=== PATIENT | female | born 1945 | race Caucasian/White ===

== ENCOUNTER 2020-04-14 08:41 | Outpatient (REF) | payer MEDICARE, BC, SELFPAY ==
--- NOTE | 2020-04-14 | XR_ITS ---
EXAMINATION: LEFT HIP AND LUMBAR SPINE. CLINICAL INFORMATION: Low back pain and left sciatica COMPARISON: None TECHNIQUE: Lumbar spine 3 views. Left hip 2 views. FINDINGS: Lumbar spine: There is normal lumbar lordosis. The vertebral heights, alignment and disc heights are normal. There is mild bilateral L4-L5 facet joint arthropathy. No lytic process seen. Left hip: There is loss of left hip joint space with mild periarticular spurring. No visible acute fracture, dislocation or lytic process seen. No bony erosive changes. The soft tissues are normal. XR/XR hip LT min 2V IMPRESSION: Bilateral L4-L5 facet joint arthropathy. No visible acute fracture, dislocation or lytic process. Mild degenerative changes left hip joint. No visible acute fracture or dislocation seen.
--- NOTE | 2020-04-14 | XR_ITS ---
EXAMINATION: LEFT HIP AND LUMBAR SPINE. CLINICAL INFORMATION: Low back pain and left sciatica COMPARISON: None TECHNIQUE: Lumbar spine 3 views. Left hip 2 views. FINDINGS: Lumbar spine: There is normal lumbar lordosis. The vertebral heights, alignment and disc heights are normal. There is mild bilateral L4-L5 facet joint arthropathy. No lytic process seen. Left hip: There is loss of left hip joint space with mild periarticular spurring. No visible acute fracture, dislocation or lytic process seen. No bony erosive changes. The soft tissues are normal. XR/XR lumbar spine 2-3V IMPRESSION: Bilateral L4-L5 facet joint arthropathy. No visible acute fracture, dislocation or lytic process. Mild degenerative changes left hip joint. No visible acute fracture or dislocation seen.
== END 2020-04-14 08:42 | disposition home or self-care (01) ==
LOC: HO.HMGCX 08:41
PROVIDERS: PCP Nurse Practitioner Family; Visit Provider Chiropractor
DX: M54.32 Sciatica, left side (principal); M54.5 Low back pain
CPT/HCPCS: 72100; 73502

== ENCOUNTER 2020-04-21 07:47 | Outpatient (RCR) | payer MEDICARE, BC, SELFPAY ==
--- NOTE | 2020-04-21 15:05 | MHC.PT.EP ---
[facility] [place] Office [place] Office [place] Office [address] [place] [address] [phone] F: [phone] F: [phone] F: [phone] F: [phone] Physical Therapy Plan of Care Date of Evaluation: 04/21/20 Date of Surgery: n/a Diagnosis: Left sided low back pain Assessment: Patient is a 74 year old R handed female who presents with s/s consistent with left sided low back pain. She is retired but does enjoy staying active and exercising. Patient past medical history includes chronic low back pain and HTN. Current impairments include pain, ROM, strength, safety, independence, body mechanics, activity tolerance and functional mobility. Functional limitations include decreased ability to walk, stand, sit, transfer, negotiate stairs, and perform weight bearing activities.. Patient is motivated with good rehab potential. Skilled PT will address impairments and functional limitations in order to achieve goals. Frequency and Duration: The patient will be seen 2x/week for 6 weeks Short Term Goals: I with HEP - 2 weeks (-) piriformis tenderness - 3 weeks hip abd strength 3+/5 - 3 weeks Able to sit and walk > 15 minutes - 3 weeks Skilled Nursing Goals: Hip abd strength 4-/5 - 5 weeks Able to sit and walk > 20 minutes - 6 weeks Oswestry 20% or < - 5 weeks Treatment Plan: Modalities to reduce pain, spasms and effusion. Manual therapy to restore motion and function. Therapeutic exercise to improve strength and flexibility. Neuromuscular re-education for posture and balance. Therapeutic activities to return to functional activities of daily living. Please sign and return to therapist. Thank you for your referral.
--- NOTE | 2020-05-21 11:39 | MHC.PT.DC ---
[facility] [place] Office [place] Office [place] Office [address] [place] [address] [phone] F: [phone] F: [phone] F: [phone] F: [phone] Physical Therapy Discharge Report Diagnosis: Left sided low back pain Date of Surgery: n/a Date of Evaluation: 04/21/20 Date of Discharge: Treatments to Date: 1 Cancellations to Date: No Shows to Date: Discharge Status: Patient Elected to Stop Discharge Summary: Pt elected to not return to physical therapy after evaluation. Electronically signed by: Michael Davis PT Please sign and return to therapist. Thank you for your referral.
== END 2020-05-21 11:40 | disposition home or self-care (01) ==
LOC: HO.PTCHIC 07:47
PROVIDERS: PCP Nurse Practitioner Family; Visit Provider Nurse Practitioner Family
DX: Z13.89 Encounter for screening for other disorder (principal)
CPT/HCPCS: 97110; 97161

== ENCOUNTER 2020-05-25 06:10 | Outpatient (REF) | payer MEDICARE, BC, SELFPAY ==
[2020-05-25 11:46] LABS: Alanine Aminotransferase 9 U/L (0-31); Albumin Level 4.2 g/dL (3.5-5.0); Alkaline Phosphatase 60 U/L (39-117); Anion Gap 14 (12-20); Aspartate Amino Transferase 15 U/L (5-31); Bilirubin Total 0.7 mg/dL (0.0-1.0); Blood Urea Nitrogen 33 mg/dL (9-16); Carbon Dioxide 26 mmol/L (22-29); Chloride 104 mmol/L (96-108); Cholesterol 212 mg/dL; Estimated Glomerular Filt Rate 50; Glucose Fasting 98 mg/dL (60-99); HDL Cholesterol 88 mg/dL; LDL Cholesterol Calculated 118 mg/dl; Potassium 4.4 mmol/l (3.3-5.1); Sodium 140 mmol/L (135-145); Total Protein 6.5 g/dL (6.5-8.0); Triglycerides 33 mg/dL
[2020-05-25 12:05] LABS: Vitamin D 25-OH Total 61.9 ng/mL (>30)
== END 2020-05-25 06:11 | disposition home or self-care (01) ==
LOC: HO.HMGCLDS 06:10
PROVIDERS: PCP Nurse Practitioner Family; Visit Provider Nurse Practitioner Family
DX: M81.0 Age-related osteoporosis without current pathological fracture (principal); I10 Essential (primary) hypertension; E78.5 Hyperlipidemia, unspecified
CPT/HCPCS: 80053; 80061; 82306

== ENCOUNTER 2020-09-18 09:25 | Outpatient (REF) | payer MEDICARE, BC, SELFPAY ==
[2020-09-18 11:57] LABS: Alanine Aminotransferase 14 U/L (0-31); Albumin Level 4.4 g/dL (3.5-5.0); Alkaline Phosphatase 52 U/L (39-117); Anion Gap 13 (12-20); Aspartate Amino Transferase 17 U/L (5-31); Bilirubin Total 0.7 mg/dL (0.0-1.0); Blood Urea Nitrogen 27 mg/dL (9-16); Calcium 9.2 mg/dL (8.4-10.2); Carbon Dioxide 27 mmol/L (22-29); Chloride 102 mmol/L (96-108); Estimated Glomerular Filt Rate 55; Glucose Random 96 mg/dL (60-115); Potassium 3.9 mmol/L (3.3-5.1); Sodium 138 mmol/L (135-145); Total Protein 6.7 g/dL (6.5-8.0)
[2020-09-18 12:14] LABS: TSH reflex Free T4 2.31 uIU/mL (0.32-4.0)
== END 2020-09-18 09:26 | disposition home or self-care (01) ==
LOC: HO.HMGCLDS 09:25
PROVIDERS: PCP Nurse Practitioner Family; Visit Provider Nurse Practitioner Family
DX: E03.9 Hypothyroidism, unspecified (principal)
CPT/HCPCS: 36415; 80053; 84443

== ENCOUNTER 2020-10-23 06:31 | Outpatient (REF) | payer MEDICARE, BC, SELFPAY ==
[2020-10-23 09:55] LABS: Creatinine Urine 39.43 mg/dL; Microalbumin Urine < 5.0 mg/L
[2020-10-28 15:36] LABS: Renin 0.26 ng/mL/h (0.25-5.82)
[2020-10-28 17:36] LABS: Metanephrine, Free 65 pg/mL (<=57); Normetanephrines, Free 78 pg/mL (<=148); Total Metanephrine, Free 143 pg/mL (<=205)
== END 2020-10-23 06:32 | disposition home or self-care (01) ==
LOC: HO.HMGCLDS 06:31
PROVIDERS: PCP Nurse Practitioner Family; Visit Provider Internal Medicine Hypertension Specialist
DX: I10 Essential (primary) hypertension (principal)
CPT/HCPCS: 36415; 82043; 82088; 83835; 84244

== ENCOUNTER → 2020-10-27 13:42 | Outpatient (REF) | payer MEDICARE, BC, SELFPAY ==
--- NOTE | 2020-10-27 14:00 | ECG_ITS ---
Hook-up date: 2020-10-27 14:08:00 Duration: 41:01:00 Test Indications: PALPITATIONS Medications: 77340 QRS complexes 15 Ventricular ectopics which represent <1 % of total QRS comp. 212 Supraventricular ectopics which represent <1 % of total QRS comp. * Paced QRS complexs which represent % of total QRS comp. VENTRICULAR ECTOPY 15 Isolated 0 Bigeminal Cycles 0 Couplets 0 Runs 0 Beats in Runs * Beats LONGEST at * BPM at :: -- * Beats FASTEST at * BPM at :: -- SUPRAVENTRICULAR ECTOPY 136 Isolated 3 Couplets 10 Runs 70 Beats in Runs 15 Beats LONGEST at 137 BPM at 09:40:57 2020-10-28 4 Beats FASTEST at 141 BPM at 22:46:48 2020-10-27 HEART RATES 49 MIN at 01:48:50 2020-10-28 67 AVG 108 MAX at 12:49:36 2020-10-28 LONGEST RR 1.5440 secs at 05:08:32 2020-10-28 S-T LEVELS Channel 1 - 128 mm at 14:08:00 2020-10-27 - 128 mm at 14:08:00 2020-10-27 Channel 2 - 128 mm at 14:08:00 2020-10-27 - 128 mm at 14:08:00 2020-10-27 Channel 3 - 128 mm at 03:32:71 -- - 128 mm at 03:32:71 Basic rhythm Normal sinus rhythm No long pause or profound bradycardia Occasional Premature atrial complexes Multiple short runs of SVE, s/o PAT longest 15 beats at 137 bpm Patient reported symptoms correlate with NSR Referred By: Juan C Skelton Overread By: STEPHANI KULKARNI MD
== END ==
LOC: HO.CARD 13:42
PROVIDERS: PCP Nurse Practitioner Family; Visit Provider Nurse Practitioner Family
DX: R00.2 Palpitations (principal); I10 Essential (primary) hypertension
CPT/HCPCS: 93225; 93226

== ENCOUNTER 2020-10-28 09:50 | Outpatient (REF) | payer MEDICARE, BC, SELFPAY ==
--- NOTE | ~2020-10-28 | US_ITS ---
EXAMINATION: ULTRASOUND RENAL DOPPLER CLINICAL INFORMATION: Primary hypertension COMPARISON: None TECHNIQUE: Doppler color and grayscale evaluation of the bilateral renal arteries and veins and abdominal aorta FINDINGS: The visualized mid abdominal aorta is normal in caliber. The systolic velocity is normal measuring 76 cm/s. There is a single right renal artery. Renal artery peak systolic velocities are normal measuring 160 cm/s proximally, 179 cm/s in the midportion and 159 cm/s distally. The right renal artery to aorta ratio is 2.3. Resistive indices in the kidney are normal. The right renal vein is patent. There are 2 left renal arteries. The more superior left renal artery peak systolic velocities measure 65 cm/s proximally, 314 cm/s midportion and 78 cm/s distally. Renal artery to aorta ratio is increased measuring 4.1. The more inferior left renal artery peak systolic velocity measures 99 cm/s proximally, 142 cm/s in the midportion and 144 cm/s distally. Renal artery to aorta ratio is 1.9. Resistive indices in the kidney are normal. The left renal vein is patent. US/US renal doppler IMPRESSION: 2 left renal arteries. There is increased peak systolic velocity and renal artery to aorta ratio of the more superior left renal suggestive of renal artery stenosis. Additional imaging recommended.
== END 2020-10-28 09:51 | disposition home or self-care (01) ==
LOC: HO.HMGCX 09:50
PROVIDERS: Visit Provider Psychiatry & Neurology Neurology
DX: I10 Essential (primary) hypertension (principal)
CPT/HCPCS: 93975

== ENCOUNTER → 2020-11-24 09:20 | Outpatient (REF) | payer MEDICARE, BC, SELFPAY ==
--- NOTE | 2020-11-24 09:23 | CA_ITS ---
Transthoracic Echocardiogram Patient (Last, First, Middle): Naomy Hyman L Gender: Female Date of : 1945 Age: 75 Procedure Date: 11/24/2020 Procedure Type: Transthoracic Echocardiogram Location: OP Height: 162.56 cm Weight: 58.97 kg BSA: 1.63 m2 Heart Rate: bpm BP: 130 / 60 mmHg Human Resources Intern: ANNE Referring MD: Juan C Skelton [facility]- Coordinator Of Evaluation: Benji Gibson MD Symptoms: I10 - Essential (primary) hypertension Study Quality: Good ECG Rhythm: Sinus Conclusions: - 1. Normal LV systolic function with grade 1 diastolic dysfunction 2. Mild to moderate aortic and mild mitral regurgitation 3. Normal RV systolic pressure 4. No pericardial effusion Findings Left Ventricle Normal left ventricular size, thickness, and systolic function. The visually estimated ejection fraction is between 65-70%. Spectral Doppler is indicative of an impaired relaxation filling pattern. E/E prime ratio is <8, consistent with normal filling pressures. Evidence suggests grade I (mild) diastolic dysfunction. Right Ventricle Normal right ventricular cavity size and systolic function. Atria Both atria are normal in size. There is no evidence of interatrial shunt. Aortic Valve There is mild calcification of the aortic valve. There is no aortic valve stenosis. There is mild to moderate aortic valve regurgitation. Mitral Valve There is mild anterior and posterior mitral leaflet thickening. There is mild mitral annular calcification. There is mild mitral valve regurgitation. There is no mitral valve stenosis. Pulmonic Valve The pulmonic valve was not well visualized. Tricuspid Valve Likely normal tricuspid valve structure and function. There is mild tricuspid valve regurgitation. The right ventricular systolic pressure is normal. The right ventricular systolic pressure is 26 mmHg. Normal right atrial pressure. There is no evidence of pulmonary hypertension. Great Vessels All visible segments of the aorta are normal in size. The pulmonary artery was not well visualized. Venous The inferior vena cava is normal in size and collapses greater than 50% with inspiration. Pericardium/Pleural There is no evidence of pericardial effusion. Measurements 2D Linear Measurements RVIDd: 3.12 RVIDd Index: 1.91 IVSd: 0.92 0.6-0.9/0.6-1.0 cm LVIDd: 4.23 3.9-5.3/4.2-5.9 cm LVIDd Index: 2.60 2.4-3.2/2.2-3.1 cm/m2 LVIDs: 2.16 2.0-3.6 cm LVPWd: 0.84 0.7-1.1 cm Ao Root: 2.70 2.1-3.5 cm LA Diam: 3.70 2.7-3.8/3.0-4.0 cm LAIDs Index: 2.27 1.5-2.3 cm/m2 LV Mass: 145.14 67-162/88-224 g LV Mass Index: 89.04 43-95/49-115 g/m2 LVOT Diam: 2.00 3.0+(-)1.3 cm 2D Systolic Function EF 4C: 67.00 >55% EF 2C: 72.60 >55% EF BiP: 70.80 >55% Mitral Valve MV Pk E: 1.19 MV PK A: 1.38 MV Decel Time: 210.00 E/A: 0.90 E'Lateral: 7.94 E'Medial: 7.51 E/E' Med: 15.80 E/E' Lat: 15.00 Aortic Valve AoV Pk Oz: 2.24 AoV Mn Oz: 1.57 AoV VTI: 0.54 AoV Pk Grad: 20.00 Aov Mn Grad: 11.00 DAINA Cont.VTI: 2.22 AI Pk Oz: 4.37 AI Baker: 2.60 LVOT LVOT Pk Oz: 1.46 LVOT Mn Oz: 1.05 LVOT VTI: 0.38 LVOT Pk Grad: 9.00 LVOT Mn Grad: 5.00 LVOT Diam: 2.00 LVOT Area: 3.14 Diastolic Function MV Pk E: 1.19 MV Pk A: 1.38 E/A: 0.90 E'Medial: 7.51 E/E' Med: 15.80 E' Laterial: 7.94 E/E' Lat: 15.00 Tricuspid Valve TR Pk Oz: 2.40 TR Pk Grad: 23.00 RA Press: 3.00 RVSP: 26.00 Great Vessels Aorta Ao Root-2D: 2.70 2.0-3.7 cm Ao Asc: 2.90 2.1-3.4 cm Ao Arch: 2.40 Updated in Other Vendor System with Status of Final Benji Gibson MD electronically signed on 11/25/2020 2:04:54 PM with status of Final
== END ==
LOC: HO.CARD 09:20
PROVIDERS: Visit Provider Nurse Practitioner Family
DX: R00.2 Palpitations (principal); I10 Essential (primary) hypertension
CPT/HCPCS: 93306

== ENCOUNTER 2021-01-27 11:44 | Outpatient (REF) | payer MEDICARE, BC, SELFPAY ==
[2021-01-27 14:16] LABS: Anion Gap 14 (12-20); Blood Urea Nitrogen 28 mg/dL (9-16); Calcium 9.7 mg/dL (8.4-10.2); Carbon Dioxide 26 mmol/L (22-29); Chloride 103 mmol/L (96-108); Estimated Glomerular Filt Rate 45; Potassium 4.5 mmol/L (3.3-5.1); Sodium 138 mmol/L (135-145)
== END 2021-01-27 11:45 | disposition home or self-care (01) ==
LOC: HO.HMGCLDS 11:44
PROVIDERS: PCP Nurse Practitioner Family; Visit Provider Internal Medicine Hypertension Specialist
DX: I10 Essential (primary) hypertension (principal)
CPT/HCPCS: 36415; 80051; 82310; 82565; 84520

== ENCOUNTER 2021-02-04 07:46 | Outpatient (REF) | payer MEDICARE, BC, SELFPAY ==
[2021-02-04 11:20] LABS: Glucose Urine UA NEG (NEG); Leukocyte Esterase Urine NEG (NEG); Nitrite Urine NEG (NEG); Specific Gravity - Urine <= 1.005 (1.005-1.025); Urine Blood NEG (NEG); Urine Ketones NEG (NEG); Urine Protein NEG (NEG-TRACE)
[2021-02-04 11:33] LABS: Appearance Urine CLEAR; Color Urine YELLOW
[2021-02-04 12:04] LABS: Alanine Aminotransferase 12 U/L (0-31); Albumin Level 4.3 g/dL (3.5-5.0); Alkaline Phosphatase 60 U/L (39-117); Anion Gap 14 (12-20); Aspartate Amino Transferase 16 U/L (5-31); Bilirubin Total 0.7 mg/dL (0.0-1.0); Blood Urea Nitrogen 33 mg/dL (9-16); Calcium 9.5 mg/dL (8.4-10.2); Carbon Dioxide 25 mmol/L (22-29); Chloride 103 mmol/L (96-108); Cholesterol 198 mg/dL; Estimated Glomerular Filt Rate 46; Glucose Fasting 98 mg/dL (60-99); HDL Cholesterol 73 mg/dL; LDL Cholesterol Calculated 118 mg/dl; Potassium 4.3 mmol/L (3.3-5.1); Sodium 138 mmol/L (135-145); Total Protein 6.4 g/dL (6.5-8.0); Triglycerides 37 mg/dL
[2021-02-04 12:07] LABS: TSH reflex Free T4 2.61 uIU/mL (0.32-4.0)
== END 2021-02-04 07:47 | disposition home or self-care (01) ==
LOC: HO.HMGCLDS 07:46
PROVIDERS: PCP Nurse Practitioner Family; Visit Provider Nurse Practitioner Family
DX: I10 Essential (primary) hypertension (principal)
CPT/HCPCS: 36415; 80053; 80061; 81003; 84443

== ENCOUNTER 2021-03-24 15:00 | Outpatient (RCR) | payer MEDICARE, BC, SELFPAY ==
--- NOTE | 2021-02-26 16:08 | MHC.PT.EP ---
[facility] [place] Office [place] Office [place] Office [address] [phone] F: [phone] F: [phone] F: [phone] F: [phone] Physical Therapy Plan of Care Date of Evaluation: Date of Surgery: Diagnosis: This is a 75 yo female presenting to skilled PT with a script of SIJ pain Assessment: This is a 75 yo female presenting to skilled PT with a script of SIJ pain. Patient comes to PT after a previous eval reporting PT was too painful. She was encouraged to try again by . She presents today reporting pain in the butt . Pain began 20-30 years ago insidiously. Prolonged standing and sitting >15 mins increases the pain. Pain is located L buttock, senior living into quad and across the low back. Pain is described as dull/achy. Her pain is pretty much constant. She used to use a lift in the shoe but has not used this in years. She reports that she used to go to the chiropractor but this wasn't helping. Assessment reveals pain that ranges up to a 8/10. She demos gross deconditioning, decreased BLE and lumbar ROM, decreased BLE strength, impaired gait pattern, impaired lumbar and sacral joint mobility as well as gross functional decline with sitting and standing for periods of time. She demos + response with SIJ special testing. She is a good candidate for skilled PT 2x/wk for 5wks. Frequency and Duration: The patient will be seen 2x/wk 5wks Short Term Goals: I in HEP Patient will centralize symptoms for 2 weeks [facility] Goals: Patient will tolerate standing and sitting for painting without increase in pain Patient will sleep through night without waking from pain Patient will improve outcome measure by 10 points Patient will improve hip strength to at least 4/5 Treatment Plan: Modalities to reduce pain, spasms and effusion. Manual therapy to restore motion and function. Therapeutic exercise to improve strength and flexibility. Neuromuscular re-education for posture and balance. Therapeutic activities to return to functional activities of daily living. Electronically signed by: Junie Melendez PT Please sign and return to therapist. Thank you for your referral.
--- NOTE | 2021-04-21 13:56 | MHC.PT.DC ---
[facility] [place] Office [place] Office [place] Office [address] [phone] F: [phone] F: [phone] F: [phone] F: [phone] Physical Therapy Discharge Report Diagnosis: This is a 75 yo female presenting to skilled PT with a script of SIJ pain Date of Surgery: Date of Evaluation: 02/26/21 Date of Discharge: 04/21/21 Treatments to Date: 8 Cancellations to Date: 0 No Shows to Date: 0 Discharge Status: Achieved Goals Improved Function Independent with HEP Discharge Summary: Patient reporting ready for DC, I in program and exercise classes. Educated to call office if symptoms return. Kept chart open for 30 days. Pain has improved and ROM/strength are good. Electronically signed by: Junie Melendez PT Please sign and return to therapist. Thank you for your referral.
== END 2021-04-21 13:56 | disposition home or self-care (01) ==
LOC: HO.PTCHIC 15:00
PROVIDERS: PCP Nurse Practitioner Family; Visit Provider Hospitalist
DX: M99.04 Segmental and somatic dysfunction of sacral region (principal)
CPT/HCPCS: 97110; 97140; 97161

== ENCOUNTER 2021-04-26 10:17 | Outpatient (REF) | payer MEDICARE, BC, SELFPAY ==
--- NOTE | ~2021-04-26 | XR_ITS ---
EXAMINATION: XR SACROILIAC JOINTS CLINICAL INFORMATION: Segmental and somatic dysfunction of sacral region. COMPARISON: Left hip done on 04/14/2020. Right outside centimeters right of the TECHNIQUE: 3 views of the sacroiliac joints FINDINGS: Bones and soft tissues are normal. No fracture. Alignment is anatomic. Sacroiliac joint spaces are well-maintained without erosions or surrounding sclerosis. Incidental note is made of moderate osteoarthrosis of the left hip. XR/XR sacroiliac joint 1-2V IMPRESSION: Normal sacroiliac joints. Moderate osteoarthrosis of the left hip.
== END 2021-04-26 10:18 | disposition home or self-care (01) ==
LOC: HO.HMGCX 10:17
PROVIDERS: PCP Nurse Practitioner Family; Visit Provider Nurse Practitioner Family
DX: M99.04 Segmental and somatic dysfunction of sacral region (principal)
CPT/HCPCS: 72200

== ENCOUNTER 2021-07-19 09:44 | Outpatient (REF) | payer MEDICARE, BC, SELFPAY ==
--- NOTE | ~2021-07-19 | XR_ITS ---
EXAMINATION: XR TIBIA AND FIBULA, LEFT CLINICAL INFORMATION: Pain COMPARISON: None TECHNIQUE: AP and lateral views of the left tibia and fibula were obtained. FINDINGS: The bones and soft tissues are normal. No fracture. No osseous lesions. XR/XR tibia fibula LT 2V IMPRESSION: No acute osseous changes to explain patient's pain symptoms.
[2021-07-19 12:20] LABS: Rheumatoid Factor < 15.0 IU/mL (<15.0)
== END 2021-07-19 09:45 | disposition home or self-care (01) ==
LOC: HO.HMGCX 09:44
PROVIDERS: Absent Provider Internal Medicine Hypertension Specialist; PCP Nurse Practitioner Family; Visit Provider Nurse Practitioner Family
DX: M79.662 Pain in left lower leg (principal); I10 Essential (primary) hypertension
CPT/HCPCS: 36415; 73590; 86431

== ENCOUNTER 2021-08-06 13:52 | Outpatient (REF) | payer MEDICARE, BC, SELFPAY ==
--- NOTE | ~2021-08-06 | MM_ITS ---
EXAMINATION: BONE DENSITOMETRY CLINICAL INDICATION: Age-related osteoporosis without current pathological fracture. COMPARISON: None (current study represents initial baseline exam). TECHNIQUE: Using a [employer] DXA System (software version: 13.1) manufactured by [employer], dual-energy x-ray absorptiometry was performed of the lumbar spine and left hip. The images are of good technical quality. Summary results are attached. FINDINGS: AP SPINE L1-L4: BMD 0.871 g/cm2, Z-score -0.7, T-score -2.6, osteoporosis. LEFT FEMUR, NECK: BMD 0.539 g/cm2, Z-score -1.6, T-score -3.6, osteoporosis. LEFT FEMUR, TOTAL: BMD 0.511 g/cm2, Z-score -2.1, T-score -3.9, osteoporosis. IDENTIFIED RISK FACTORS: Osteoporosis, menopause. HISTORY OF FRACTURE: None listed. MEDICATIONS: Calcium supplements or multivitamin, vitamin D. MM/XR DEXA axial skeleton IMPRESSION: 1. DIAGNOSIS: Osteoporosis based on the lowest T-score value of -3.9 in the total femur applying World Health Organization criteria. 2. 10- 10-YEAR FRACTURE RISK PREDICTION, FRAX: According to the guidelines, FRAX calculation should only be performed on patients in the osteopenia bone density category. Therefore, FRAX was not performed on this patient. 3. Treatment Recommendations: NOF guidelines recommend consideration for treatment in postmenopausal women and men age 50 and older presenting with the following: -A hip or vertebral (clinical or morphometric) fracture. -T-score less than or equal to -2.5 at the femoral neck or spine after appropriate evaluation to exclude secondary causes. -Low bone mass at the hip or spine and a 10-year fracture probability by FRAX of greater than or equal to 3% for hip fracture or greater than or equal to 20% for major osteoporotic fracture based on the [place] adapted WHO algorithm. 4. Other Recommendations: All treatment decisions require clinical judgment and consideration of individual patient factors, including patient preferences, comorbidities, previous drug use, risk factors not captured in the FRAX model (e.g. frailty, falls, vitamin D deficiency, increased bone turnover, interval significant decline in bone density) and possible under or overestimation of fracture risk by FRAX. Additional medical evaluation for secondary cause of low bone mineral density may be appropriate. FUTURE SCAN RECOMMENDATION: People with diagnosed cases of osteoporosis or at high risk for fracture should have regular bone mineral density tests. For patients eligible for Medicare, routine testing is allowed once every 2 years. The testing frequency can be increased to one year for patients who have rapidly progressing disease, those who are receiving or discontinuing medical therapy to restore bone mass, or have additional risk factors.
== END 2021-08-06 13:53 | disposition home or self-care (01) ==
LOC: HO.MAMMO 13:52
PROVIDERS: Visit Provider Nurse Practitioner Family
DX: M81.0 Age-related osteoporosis without current pathological fracture (principal); Z78.0 Asymptomatic menopausal state; Z79.899 Other long term (current) drug therapy
CPT/HCPCS: 77080

== ENCOUNTER 2021-08-27 06:16 | Outpatient (REF) | payer MEDICARE, BC, SELFPAY ==
[2021-08-27 11:49] LABS: Appearance Urine CLEAR; Color Urine YELLOW; Glucose Urine UA NEG (NEG); Leukocyte Esterase Urine NEG (NEG); Nitrite Urine NEG (NEG); Urine Blood NEG (NEG); Urine Ketones NEG (NEG); Urine Protein NEG (NEG-TRACE)
[2021-08-27 12:28] LABS: Alanine Aminotransferase 11 U/L (0-31); Albumin Level 4.2 g/dL (3.5-5.0); Alkaline Phosphatase 66 U/L (39-117); Anion Gap 11 (12-20); Aspartate Amino Transferase 18 U/L (5-31); Bilirubin Total 0.7 mg/dL (0.0-1.0); Blood Urea Nitrogen 29 mg/dL (9-16); Calcium 9.6 mg/dL (8.4-10.2); Carbon Dioxide 27 mmol/L (22-29); Chloride 103 mmol/L (96-108); Cholesterol 201 mg/dL; Estimated Glomerular Filt Rate 50; Glucose Fasting 112 mg/dL (60-99); HDL Cholesterol 91 mg/dL; LDL Cholesterol Calculated 102 mg/dl; Potassium 4.2 mmol/L (3.3-5.1); Sodium 137 mmol/L (135-145); Total Protein 6.5 g/dL (6.5-8.0); Triglycerides 42 mg/dL
[2021-08-27 12:34] LABS: TSH reflex Free T4 6.71 uIU/mL (0.32-4.0)
[2021-08-27 13:22] LABS: Free T4 (Free Thyroxine) 0.88 ng/dL (0.71-1.85)
== END 2021-08-27 06:17 | disposition home or self-care (01) ==
LOC: HO.HMGCLDS 06:16
PROVIDERS: Visit Provider Nurse Practitioner Family
DX: I10 Essential (primary) hypertension (principal)
CPT/HCPCS: 36415; 80053; 80061; 81003; 84439; 84443

== ENCOUNTER 2021-09-01 15:00 | Outpatient (RCR) | payer MEDICARE, BC, SELFPAY ==
--- NOTE | 2021-07-21 16:14 | MHC.PT.EP ---
[facility] [place] Office [place] Office [place] Office [address] [place] [address] [phone] F: [phone] F: [phone] F: [phone] F: [phone] Physical Therapy Plan of Care Date of Evaluation: Date of Surgery: Diagnosis: This is a 75 yo female presenting to skilled PT with a script for pain in the L lower leg Assessment: This is a 75 yo female presenting to skilled PT with a script for pain in the L lower leg. Patient was here last in February for her SIJ. She was DC'd and was going to the senior center to continue on own. Her pain started to increase again March/April. She has B tucker pain (L is worse than the R). Pain increases with standing, walking. Pain is described as achy and dull. She also reports that she also has an increase in sciatic pain as well in the past month, exacerbated with sitting. pain is described as numb. Pain starts at the buttock and wraps around the hip anteriorly. She has been trying to stretch, massage and exercise to tolerance. She was going to the chiropractor and pain is worse. Assessment reveals pain that ranges up to a 6/10. She demos decreased lumbar and hip ROM, decreased hip and core strength, impaired gait pattern as mentioned above in evaluation, impaired joint mobility and s/s consistent with SIJ dysfunction causing gait deviations as well as gross functional decline with. She is a good candidate for skilled PT 2x/wk for 5wks. Frequency and Duration: The patient will be seen 2x/wk for 5wks Short Term Goals: I in HEP and understanding of how to progress Demo proper squatting techniques without increase in pain or radiating symptoms Prison Goals: Demos functional ROM and strength Improve LEFs by at least 10 points Improve pain at the worst to no more than 2/10 Return to normal gym routine/senior center activties Treatment Plan: Modalities to reduce pain, spasms and effusion. Manual therapy to restore motion and function. Therapeutic exercise to improve strength and flexibility. Neuromuscular re-education for posture and balance. Therapeutic activities to return to functional activities of daily living. Electronically signed by: Junie Melendez PT Please sign and return to therapist. Thank you for your referral.
--- NOTE | 2021-09-02 12:30 | MHC.PT.DC ---
[facility] [place] Office [place] [facility] [place] [facility] [address] [place] [address] [phone] F: [phone] F: [phone] F: [phone] F: [phone] Physical Therapy Discharge Report Diagnosis: This is a 75 yo female presenting to skilled PT with a script for pain in the L lower leg Date of Surgery: Date of Evaluation: 07/21/21 Date of Discharge: 09/02/21 Treatments to Date: 10 Cancellations to Date: 0 No Shows to Date: 0 Discharge Status: Achieved Goals Improved Function Independent with HEP Discharge Summary: Naomy has progressed greatly with PT once again, her pain has improved, she understands how to modify functional positions and is very compliant with HEP and exercise program at the [facility]. At this point she is ready for DC. She is transitioning to a holistic chiropractor next week for further pain management. We discussed talking with her PCP about a referral to an orthopedic for arthritis assessment due to her reoccurrence of symptoms over the past few months. She has met her goals and is ready for DC at this time. 08/25/21: I printed out an updated HEP for Naomy to review over the next few days. She will be DCing next visit. She has made great strides and appears ready for DC at this time. She will be starting chiro care in 2 weeks which will be a good transition. No adverse reactions noted today. 08/18/21: Naomy did okay today, tolerated increased squats and hip hinge in weight bearing today. Plan is to do 2 more appointments and then DC as she will be seeing a chiro to trial for pain relief. 08/16/21: Naomy needed some re-ed on POC again today. Educated her that medication use and surgery are her preference and her doctor's recommendation. Educated her to take one step at a time. Again we discussed her POC and PT POC as well. Tolerated the stepper today. As she has already done exercise today, we continued education and kept ther-ex light. 08/11/21: Naomy reported going to exercise class on and felt really good, she has been doing her exercises faithfully. However over the weekend she experienced alot of pain again (unsure why or what caused this) and came in today with groin, hip and buttock pain on the L. We discussed that it may be beneficial for her to see an ortho surgeon to assess her hip as she does not seem to be getting better. We spent an extensive amount of time going over anatomy, ortho options and muscles. 08/04/21: Naomy is progressing very well with therapy. She has improved pain, ROM, strength and gait pattern. She is in much better spirits and has progressed her ther-ex program. We talked about a final DC HEP that will be consistent for the next few sessions. 08/02/21: Naomy was provided a heel lift and felt better with ambulation. Educated her on hip hip extension stretching. She started bridges without pain today as well. Progressing very well. Trialing exercise class this week again. 07/28/21: Naomy has improved motivation, gait and pain levels today. She has noticed that her symptoms increase when she gets in/out of the car. She understands her HEP and will trial returning back to exercise class next week. She was educated extensively on anatomy, symptoms and movements. 07/26/21: Naomy returns flustered about symptoms. She tends to perseverate on her symptoms. She needed redirection throughout the session. I re-educated her on HEP as she tends to forget how and why. I kept her HEP to 5 exercises with extensive ed on the why of symptoms and symptom management. I ended the session with gait training on the treadmill. She left without pain. This is a 75 yo female presenting to skilled PT with a script for pain in the L lower leg. Patient was here last in February for her SIJ. She was DC'd and was going to the [facility] to continue on own. Her pain started to increase again March/April. She has B tucker pain (L is worse than the R). Pain increases with standing, walking. Pain is described as achy and dull. She also reports that she also has an increase in sciatic pain as well in the past month, exacerbated with sitting. pain is described as numb. Pain starts at the buttock and wraps around the hip anteriorly. She has been trying to stretch, massage and exercise to tolerance. She was going to the chiropractor and pain is worse. Assessment reveals pain that ranges up to a 6/10. She demos decreased lumbar and hip ROM, decreased hip and core strength, impaired gait pattern as mentioned above in evaluation, impaired joint mobility and s/s consistent with SIJ dysfunction causing gait deviations as well as gross functional decline with. She is a good candidate for skilled PT 2x/wk for 5wks. Electronically signed by: Junie Melendez, PT Please sign and return to therapist. Thank you for your referral.
== END 2021-09-02 12:30 | disposition home or self-care (01) ==
LOC: HO.PTCHIC 15:00
PROVIDERS: PCP Nurse Practitioner Family; Visit Provider Nurse Practitioner Family
DX: M79.662 Pain in left lower leg (principal)
CPT/HCPCS: 97110; 97140; 97162

== ENCOUNTER 2021-09-20 11:30 | Outpatient (REF) | payer MEDICARE, BC, SELFPAY ==
[2021-09-20 14:37] LABS: TSH reflex Free T4 2.44 uIU/mL (0.32-4.0)
== END 2021-09-20 11:31 | disposition home or self-care (01) ==
LOC: HO.HMGCLDS 11:30
PROVIDERS: PCP Nurse Practitioner Family; Visit Provider Nurse Practitioner Family
DX: R94.6 Abnormal results of thyroid function studies (principal)
CPT/HCPCS: 36415; 84443

== ENCOUNTER 2021-12-25 10:27 | Outpatient (REF) | payer MEDICARE, BC, SELFPAY ==
--- NOTE | ~2021-12-25 | XR_ITS ---
EXAMINATION: XR CHEST CLINICAL INFORMATION: Bronchitis COMPARISON: None TECHNIQUE: 2 views of the chest were obtained. FINDINGS: Biapical pleural-parenchymal scarring. Lungs appear otherwise clear. No pleural effusion or pneumothorax. Normal cardiomediastinal silhouette. XR/XR chest 2V IMPRESSION: Biapical pleural parenchymal scarring. Lungs appear otherwise clear.
== END 2021-12-25 10:28 | disposition home or self-care (01) ==
LOC: HO.XRAY 10:27
PROVIDERS: PCP Nurse Practitioner Family; Visit Provider Nurse Practitioner Family
DX: J20.9 Acute bronchitis, unspecified (principal)
CPT/HCPCS: 71046

== ENCOUNTER 2022-05-28 06:32 | Outpatient (REF) | payer MEDICARE, BC, SELFPAY ==
[2022-05-28 11:14] LABS: MANUAL DIFF FLAG NO
[2022-05-28 11:19] LABS: Eosinophils Absolute Auto 0.2 X10*3/uL (0.0-0.4); Eosinophils Percent Auto 4.4 % (0-4); Hematocrit 39.8 % (37.0-47.0); Hemoglobin 12.3 g/dl (12.0-16.0); Lymphocytes Absolute Auto 1.7 X10*3/uL (1.2-4.9); Lymphocytes Percent Auto 41.5 % (20-40); Mean Corpuscular HGB Conc 30.9 g/dl (31.0-35.0); Mean Corpuscular Hemoglobin 27.8 pg (27.0-33.0); Mean Corpuscular Volume 89.8 fL (80.0-98.0); Mean Platelet Volume 9.9 fL (9.4-12.3); Monocytes Absolute Auto 0.5 X10*3/uL (0.1-1.2); Monocytes Percent Auto 12.4 % (2-11); Neutrophils Absolute Auto 1.7 x10*3/uL (2.0-8.3); Neutrophils Percent Auto 40.7 % (45-73); Platelet Count 214 X10*3/uL (160-400); Red Blood Count 4.43 X10*6/uL (4.20-5.50); White Blood Count 4.1 X10*3/uL (4.8-10.8)
[2022-05-28 11:36] LABS: Appearance Urine Clear; Color Urine Yellow; Glucose Urine UA Negative (Negative); Leukocyte Esterase Urine Large (3+) (Negative); Nitrite Urine Negative (Negative); Specific Gravity - Urine 1.015 (1.005-1.025); UMIC TRIGGER UACC YES; Urine Blood Negative (Negative); Urine Ketones Negative (Negative); Urine Protein Negative (Neg-Trace)
[2022-05-28 11:42] LABS: Bacteria Urine None Seen (None Seen); Hyaline Casts Urine 0-2 /LPF (0-2); RBC Urine 0-2 /HPF (0-2); Squamous Epithelial Cell Urine 0-2 /HPF (0-2); UACC Culture Trigger YES
[2022-05-28 12:00] LABS: Alanine Aminotransferase 9 U/L (0-31); Albumin Level 4.2 g/dL (3.5-5.0); Alkaline Phosphatase 59 U/L (39-117); Anion Gap 14 (12-20); Aspartate Amino Transferase 15 U/L (5-31); Bilirubin Total 0.5 mg/dL (0.0-1.0); Blood Urea Nitrogen 26 mg/dL (9-16); Calcium 9.7 mg/dL (8.4-10.2); Carbon Dioxide 27 mmol/L (22-29); Chloride 104 mmol/L (96-108); Cholesterol 193 mg/dL; Estimated Glomerular Filt Rate 46; Glucose Fasting 99 mg/dL (60-99); HDL Cholesterol 76 mg/dL; LDL Cholesterol Calculated 107 mg/dl; Potassium 4.1 mmol/L (3.3-5.1); Sodium 141 mmol/L (135-145); TSH reflex Free T4 1.65 uIU/mL (0.32-4.0); Total Protein 6.2 g/dL (6.5-8.0); Triglycerides 53 mg/dL
== END 2022-05-28 06:33 | disposition home or self-care (01) ==
LOC: HO.HMGCLDS 06:32
PROVIDERS: PCP Nurse Practitioner Family; Visit Provider Nurse Practitioner Family
DX: I10 Essential (primary) hypertension (principal); R01.1 Cardiac murmur, unspecified
CPT/HCPCS: 36415; 80053; 80061; 81001; 84443; 85025; 87086

== ENCOUNTER → 2022-06-02 08:10 | Outpatient (REF) | payer MEDICARE, BC, SELFPAY ==
--- NOTE | 2022-06-02 08:12 | CA_ITS ---
Transthoracic Echocardiogram Patient (Last, First, Middle): Naomy Hyman L Gender: Female Date of : 1945 Age: 76 Procedure Date: 06/02/2022 Procedure Type: Transthoracic Echocardiogram Location: OP Height: 160.02 cm Weight: 58.97 kg BSA: 1.61 m2 Heart Rate: bpm BP: 165 / 80 mmHg Energy Attorney: TO Referring MD: Juan C Skelton [facility] Symptoms: R01.1 - Cardiac murmur, unspecified Study Quality: Fair ECG Rhythm: Sinus Conclusions: - The left ventricular systolic function is normal. The calculated ejection fraction is 67% by biplane method. - There is mild aortic valve regurgitation. - There is mild tricuspid valve regurgitation. - Mild pulmonary hypertension is present. Findings Procedure Information The study quality is limited by the patients inability to tolerate the test. Left Ventricle Normal left ventricular cavity size. There is normal left ventricular wall thickness. The left ventricular systolic function is normal. The calculated ejection fraction is 67% by biplane method. There is no evidence of regional wall motion abnormalities. Diastolic function is normal for age. Right Ventricle Normal right ventricular cavity size and systolic function. Aortic Valve There is a normal trileaflet aortic valve. There is no aortic valve stenosis. There is mild aortic valve regurgitation. Mitral Valve There is mild mitral annular calcification. There is trace mitral valve regurgitation. There is no mitral valve stenosis. Pulmonic Valve The pulmonic valve is likely normal. Tricuspid Valve Normal tricuspid valve structure. There is mild tricuspid valve regurgitation. Mild pulmonary hypertension is present. Great Vessels The aortic annulus, sinuses of valsalva, and asc aorta are normal in size. Small plaque is seen in the sino tubular ridge. Venous The inferior vena cava is normal in size and collapses greater than 50% with inspiration. Pericardium/Pleural There is no evidence of pericardial effusion. Prior Study Comparison No significant change compared to prior study dated: 11/24/2020. Measurements 2D Linear Measurements IVSd: 0.70 0.6-0.9/0.6-1.0 cm LVIDd: 4.73 3.9-5.3/4.2-5.9 cm LVIDd Index: 2.94 2.4-3.2/2.2-3.1 cm/m2 LVIDs: 2.89 2.0-3.6 cm LVPWd: 0.72 0.7-1.1 cm LA Diam: 3.30 2.7-3.8/3.0-4.0 cm LAIDs Index: 2.05 1.5-2.3 cm/m2 LV Mass: 131.50 67-162/88-224 g LV Mass Index: 81.68 43-95/49-115 g/m2 LVOT Diam: 1.80 3.0+(-)1.3 cm 2D Systolic Function EF 4C: 64.00 >55% EF 2C: 68.00 >55% EF BiP: 66.50 >55% Mitral Valve MV Pk E: 0.93 MV PK A: 1.04 MV Decel Time: 217.00 E/A: 0.90 E'Lateral: 8.05 E'Medial: 7.18 E/E' Med: 13.00 E/E' Lat: 11.60 PHT: 64.00 MVA PHT: 3.44 Decel [place]: 4.30 Aortic Valve AoV Pk Oz: 1.75 AoV Mn Oz: 1.09 AoV VTI: 0.40 AoV Pk Grad: 12.00 Aov Mn Grad: 6.00 DAINA Cont.VTI: 2.43 AI Pk Oz: 4.54 AI [place]: 2.49 LVOT LVOT Pk Oz: 1.61 LVOT Mn Oz: 0.91 LVOT VTI: 0.38 LVOT Pk Grad: 10.00 LVOT Mn Grad: 4.00 LVOT Diam: 1.80 LVOT Area: 2.54 Diastolic Function MV Pk E: 0.93 MV Pk A: 1.04 E/A: 0.90 E'Medial: 7.18 E/E' Med: 13.00 E' Laterial: 8.05 E/E' Lat: 11.60 Right Ventricle TAPSE (mm): 31.10 TVS' Oz: 11.40 Tricuspid Valve TR Pk Oz: 2.90 TR Pk Grad: 34.00 RA Press: 3.00 RVSP: 37.00 Great Vessels Aorta Sinus of Valsalva: 3.34 2.0-3.[address] [place]: 2.38 1.7-3.4 cm Ao Asc: 3.00 2.1-3.4 cm Updated in Other Vendor System with Status of Final Krishna Grossman MD electronically signed on 06/03/2022 12:49:58 PM with status of Final
== END ==
LOC: HO.CARD 08:10
PROVIDERS: PCP Nurse Practitioner Family; Visit Provider Nurse Practitioner Family
DX: R01.1 Cardiac murmur, unspecified (principal)
CPT/HCPCS: 93306

== ENCOUNTER 2022-06-17 14:00 | Outpatient (RCR) | payer MEDICARE, BC, SELFPAY | END 2022-06-17 14:55 | disposition home or self-care (01) | LOC: HO.PTCHIC 14:00 | PROVIDERS: PCP Nurse Practitioner Family; Visit Provider Podiatrist | DX: M76.62 Achilles tendinitis, left leg (principal); M72.2 Plantar fascial fibromatosis | CPT/HCPCS: 97110; 97140; 97162 ==

== ENCOUNTER 2022-07-01 13:54 | Outpatient (REF) | payer MEDICARE, BC, SELFPAY ==
[2022-07-01 16:44] LABS: Anion Gap 15 (12-20); Blood Urea Nitrogen 28 mg/dL (9-16); Calcium 9.4 mg/dL (8.4-10.2); Carbon Dioxide 24 mmol/L (22-29); Chloride 102 mmol/L (96-108); Estimated Glomerular Filt Rate 44; Glucose Random 91 mg/dL (60-115); Potassium 4.3 mmol/L (3.3-5.1); Sodium 137 mmol/L (135-145)
== END 2022-07-01 13:55 | disposition home or self-care (01) ==
LOC: HO.HMGCLDS 13:54
PROVIDERS: PCP Nurse Practitioner Family; Visit Provider Internal Medicine Hypertension Specialist
DX: I10 Essential (primary) hypertension (principal)
CPT/HCPCS: 36415; 80048

== ENCOUNTER 2022-09-29 11:27 | Outpatient (REF) | payer MEDICARE, BC, SELFPAY ==
--- NOTE | ~2022-09-29 | XR_ITS ---
EXAMINATION: Bilateral shoulder x-ray CLINICAL INFORMATION: Pain COMPARISON: None. TECHNIQUE: 3 views of each shoulder FINDINGS: Right: Bone alignment is normal. No fracture or dislocation. The glenohumeral joint is normal. There is arthritis at the acromioclavicular joint. Soft tissues are normal. Left: Bone alignment is normal. No fracture or dislocation. The glenohumeral joint is normal. There is arthritis at the acromioclavicular joint. Soft tissues are normal. XR/XR shoulder RT min 2V IMPRESSION: Arthritis at the bilateral acromioclavicular joints.
--- NOTE | ~2022-09-29 | XR_ITS ---
EXAMINATION: Bilateral shoulder x-ray CLINICAL INFORMATION: Pain COMPARISON: None. TECHNIQUE: 3 views of each shoulder FINDINGS: Right: Bone alignment is normal. No fracture or dislocation. The glenohumeral joint is normal. There is arthritis at the acromioclavicular joint. Soft tissues are normal. Left: Bone alignment is normal. No fracture or dislocation. The glenohumeral joint is normal. There is arthritis at the acromioclavicular joint. Soft tissues are normal. XR/XR shoulder LT min 2V IMPRESSION: Arthritis at the bilateral acromioclavicular joints.
== END 2022-09-29 11:28 | disposition home or self-care (01) ==
LOC: HO.HMGCX 11:27
PROVIDERS: PCP Nurse Practitioner Family; Visit Provider Nurse Practitioner Family
DX: M25.511 Pain in right shoulder (principal); M25.512 Pain in left shoulder
CPT/HCPCS: 73030

== ENCOUNTER 2022-11-11 14:00 | Outpatient (RCR) | payer MEDICARE, BC, SELFPAY ==
--- NOTE | 2022-10-17 14:55 | MHC.PT.EP ---
[facility] [place] Office [place] Office [place] Office [address] [place] [address] [phone] F: [phone] F: [phone] F: [phone] F: [phone] Physical Therapy Plan of Care Date of Evaluation: Date of Surgery: Diagnosis: B shoulder pain Assessment: 77 y/o RHD female referred to PT with B shoulder pain. S/s consistent with impingement as well as overlapping OA resulting in pain and difficulty with lifting, carrying things, reaching overhead, grooming, and reaching behind the back secondary to decreased B shoulder AROM (R more limited), decreased B strength, decreased cervical AROM, and TTP. She was educated in modifying exercises from exercise classes at [facility] and to perform open can verse closed can exercises. Recommend PT2x/week for 4 weeks to address impairments, implement HEP, and optimize functional mobility Frequency and Duration: The patient will be seen 2x/week for 4 weeks Short Term Goals: 2 weeks Compliant with HEP Improve B shoulder flexion to 115 to facilitate grooming [facility] Goals: 4 weeks I with hEP and self management of sx Improve B shoulder strength to 4-/5 or greater to faciliate carrying grocery bags Pt will be able to reach into overhead cabinet with pain < 3/10 Treatment Plan: Modalities to reduce pain, spasms and effusion. Manual therapy to restore motion and function. Therapeutic exercise to improve strength and flexibility. Neuromuscular re-education for posture and balance. Therapeutic activities to return to functional activities of daily living. Electronically signed by: Alesha Tavares PT Please sign and return to therapist. Thank you for your referral.
--- NOTE | 2022-11-21 07:09 | MHC.PT.DC ---
[facility] [place] Office [place] Office [place] Office [address] [place] [address] [phone] F: [phone] F: [phone] F: [phone] F: [phone] Physical Therapy Discharge Report Diagnosis: B shoulder pain Date of Surgery: Date of Evaluation: 10/17/22 Date of Discharge: 11/21/22 Treatments to Date: 8 Cancellations to Date: 0 No Shows to Date: 0 Discharge Status: Improved Function Independent with HEP Discharge Summary: Pt is appropriate for d/c secondary to improved shoulder ROM, decreased pain and I with HEP. While she demonstrates improvements, she will still have pain with abduction >80* and flexion > 100* and is limited her exercise class routine; therefore educated pt to continue with HEP at home as tolerated and follow up with MD if issues continue. Electronically signed by: Alesha Tavares PT Please sign and return to therapist. Thank you for your referral.
== END 2022-11-21 07:10 | disposition home or self-care (01) ==
LOC: HO.PTCHIC 14:00
PROVIDERS: PCP Nurse Practitioner Family; Visit Provider Nurse Practitioner Family
DX: M25.511 Pain in right shoulder (principal); M25.512 Pain in left shoulder
CPT/HCPCS: 97110; 97162

== ENCOUNTER 2022-12-10 08:21 | Outpatient (REF) | payer MEDICARE, BC, SELFPAY ==
[2022-12-10 11:08] LABS: MANUAL DIFF FLAG NO
[2022-12-10 11:16] LABS: Basophils Absolute Auto 0.1 X10*3/uL (0.0-0.2); Basophils Percent Auto 1.3 % (0-2); Eosinophils Absolute Auto 0.3 X10*3/uL (0.0-0.4); Hematocrit 40.1 % (37.0-47.0); Hemoglobin 12.9 g/dl (12.0-16.0); Imm Gran Abs Auto 0.02 X10*3/uL (0.00-0.03); Imm Gran Pct Auto 0.5 % (0.0-0.4); Lymphocytes Absolute Auto 1.2 X10*3/uL (1.2-4.9); Lymphocytes Percent Auto 28.8 % (20-40); Mean Corpuscular HGB Conc 32.2 g/dl (31.0-35.0); Mean Corpuscular Hemoglobin 29.4 pg (27.0-33.0); Mean Corpuscular Volume 91.3 fL (80.0-98.0); Mean Platelet Volume 10.4 fL (9.4-12.3); Monocytes Absolute Auto 0.6 X10*3/uL (0.1-1.2); Neutrophils Absolute Auto 1.8 x10*3/uL (2.0-8.3); Neutrophils Percent Auto 45.4 % (45-73); Platelet Count 194 X10*3/uL (160-400); Red Blood Count 4.39 X10*6/uL (4.20-5.50); Red Cell Distribution Width 14.8 % (11.0-16.0)
[2022-12-10 11:21] LABS: Appearance Urine Clear; Color Urine Yellow; Glucose Urine UA Negative (Negative); Leukocyte Esterase Urine Small (1+) (Negative); Nitrite Urine Negative (Negative); Specific Gravity - Urine 1.015 (1.005-1.025); UMIC TRIGGER UACC YES; Urine Blood Negative (Negative); Urine Ketones Negative (Negative); Urine Protein Negative (Neg-Trace)
[2022-12-10 11:32] LABS: Bacteria Urine None Seen (None Seen); Hyaline Casts Urine 0-2 /LPF (0-2); RBC Urine 0-2 /HPF (0-2); Squamous Epithelial Cell Urine 0-2 /HPF (0-2); UACC Culture Trigger YES; WBC Urine 0-5 /HPF (0-5)
[2022-12-10 11:35] LABS: Alanine Aminotransferase 230 U/L (0-31); Albumin Level 4.3 g/dL (3.5-5.0); Alkaline Phosphatase 64 U/L (39-117); Anion Gap 12 (12-20); Aspartate Amino Transferase 142 U/L (5-31); Bilirubin Total 0.6 mg/dL (0.0-1.0); Blood Urea Nitrogen 30 mg/dL (9-16); Calcium 10.1 mg/dL (8.4-10.2); Carbon Dioxide 27 mmol/L (22-29); Chloride 105 mmol/L (96-108); Cholesterol 185 mg/dL; Estimated Glomerular Filt Rate 53; Glucose Fasting 106 mg/dL (60-99); HDL Cholesterol 74 mg/dL; LDL Cholesterol Calculated 103 mg/dl; Potassium 4.3 mmol/L (3.3-5.1); Sodium 140 mmol/L (135-145); Total Protein 6.6 g/dL (6.5-8.0); Triglycerides 43 mg/dL
[2022-12-10 11:52] LABS: TSH reflex Free T4 1.91 uIU/mL (0.32-4.0)
== END 2022-12-10 08:22 | disposition home or self-care (01) ==
LOC: HO.HMGCLDS 08:21
PROVIDERS: PCP Nurse Practitioner Family; Visit Provider Nurse Practitioner Family
DX: I10 Essential (primary) hypertension (principal); R82.90 Unspecified abnormal findings in urine
CPT/HCPCS: 36415; 80053; 80061; 81001; 84443; 85025; 87086

== ENCOUNTER 2022-12-26 08:15 | Outpatient (REF) | payer MEDICARE, BC, SELFPAY ==
--- NOTE | ~2022-12-26 | US_ITS ---
EXAMINATION: US ABDOMEN COMPLETE CLINICAL INFORMATION: Abnormal levels of other serum enzymes. COMPARISON: Renal Doppler examination 10/28/2020. TECHNIQUE: Real-time imaging of the abdominal viscera. FINDINGS: PANCREAS: Normal. ABDOMINAL AORTA: The proximal, mid, and distal segments are normal in caliber. INFERIOR VENA CAVA: Visualized portions are normal. LIVER: The liver is normal in size. The liver contour is normal. Increased hepatic echogenicity which can be seen in the setting of hepatic steatosis or underlying liver disease. No focal hepatic lesion. There is no intrahepatic biliary duct dilatation seen. GALLBLADDER: The gallbladder is physiologically distended. Sludge versus tiny nonshadowing stones layering in the gallbladder. No evidence of gallbladder wall thickening or pericholecystic fluid. Negative sonographic Cano sign. COMMON BILE DUCT: Normal in caliber measuring 0.2 cm in diameter. RIGHT KIDNEY: Normal. No hydronephrosis. No renal calculi or focal parenchymal lesions. The kidney measures 10.4 cm in maximum dimension. LEFT KIDNEY: Normal. No hydronephrosis. No renal calculi or focal parenchymal lesions. The kidney measures 9.2 cm in maximum dimension. SPLEEN: Normal. The spleen measures 8.0 cm in maximum dimension. FREE FLUID: None. US/US abdomen complete IMPRESSION: 1. Increased hepatic echogenicity which can be seen in the setting of hepatic steatosis or underlying liver disease. 2. Sludge versus tiny nonshadowing stones layering in the gallbladder without evidence of acute cholecystitis.
[2022-12-26 12:28] LABS: Alanine Aminotransferase 168 U/L (0-31); Albumin Level 4.2 g/dL (3.5-5.0); Alkaline Phosphatase 70 U/L (39-117); Aspartate Amino Transferase 101 U/L (5-31); Bilirubin Direct 0.2 mg/dL (0.0-0.5); Bilirubin Total 0.7 mg/dL (0.0-1.0); Total Protein 6.5 g/dL (6.5-8.0)
== END 2022-12-26 08:16 | disposition home or self-care (01) ==
LOC: HO.HMGCX 08:15
PROVIDERS: PCP Nurse Practitioner Family; Visit Provider Nurse Practitioner Family
DX: R74.8 Abnormal levels of other serum enzymes (principal)
CPT/HCPCS: 36415; 76700; 80076

== ENCOUNTER 2023-01-12 09:00 | Outpatient (REF) | payer MEDICARE, BC, SELFPAY ==
[2023-01-12 12:59] LABS: Alanine Aminotransferase 69 U/L (0-31); Albumin Level 4.2 g/dL (3.5-5.0); Alkaline Phosphatase 75 U/L (39-117); Aspartate Amino Transferase 51 U/L (5-31); Bilirubin Direct 0.2 mg/dL (0.0-0.5); Bilirubin Total 0.6 mg/dL (0.0-1.0); Total Protein 6.5 g/dL (6.5-8.0)
[2023-01-13 08:46] LABS: HBS Num1 0.01 mIU/mL (0-7.99); HBc Num1 0.08 S/CO (0.00-0.79); Hepatitis A Antibody IgM 0.16 Index (0-0.79); Hepatitis B Core Antibody Nonreactive (Nonreactive); Hepatitis B Surface Antigen Negative (Negative); ~HepC Num1 0.07 S/CO (0.00-0.79); ~Hepatitis A Antibody IgM Nonreactive (Nonreactive); ~Hepatitis B Surface Antibody NONREACTIVE (Nonreactive); ~Hepatitis C Antibody Nonreactive (Nonreactive)
== END 2023-01-12 09:01 | disposition home or self-care (01) ==
LOC: HO.HMGCLDS 09:00
PROVIDERS: PCP Nurse Practitioner Family; Visit Provider Nurse Practitioner Family
DX: R74.8 Abnormal levels of other serum enzymes (principal)
CPT/HCPCS: 36415; 80076; 86704; 86706; 86709; 86803; 87340

== ENCOUNTER 2023-01-21 10:49 | Outpatient (REF) | payer MEDICARE, BC, SELFPAY ==
[2023-01-21 13:58] LABS: Anion Gap 15 (12-20); Blood Urea Nitrogen 37 mg/dL (9-16); Calcium 9.4 mg/dL (8.4-10.2); Carbon Dioxide 22 mmol/L (22-29); Chloride 107 mmol/L (96-108); Estimated Glomerular Filt Rate 55; Potassium 4.4 mmol/L (3.3-5.1); Sodium 140 mmol/L (135-145)
[2023-01-21 14:00] LABS: Creatinine Urine 21.92 mg/dL; Total Protein Urine Random < 7 mg/dL (<12)
== END 2023-01-21 10:50 | disposition home or self-care (01) ==
LOC: HO.HMGCLDS 10:49
PROVIDERS: PCP Nurse Practitioner Family; Visit Provider Internal Medicine Hypertension Specialist
DX: I10 Essential (primary) hypertension (principal)
CPT/HCPCS: 36415; 80051; 82310; 82565; 84156; 84520

== ENCOUNTER 2023-01-27 11:43 | Outpatient (AMB) | payer MEDICARE, BC, SELFPAY ==
--- NOTE | 2023-01-27 13:06 | AM.OFFWIN_ITS ---
Intake Vital Signs 01/27/23 13:20 Height 5 ft 4 in Weight 50.972 kg BMI 19.3 BP 132/62 Blood Pressure Location Lt brachial Position Sitting Pulse 48 L Pulse Source Pulse Oximeter Temp 97.2 F Temp Source Temporal Artery Scan Pulse Oximetry (%) 97 Oxygen Delivery Method Room Air Intake Visit Reasons: EST/vertigo/[phone] Intake Note: Pt is here c/o feeling vertigo for the last two days. Pt states this morning she felt very dizzy but states it comes and goes. Patient Tobacco Use Status: Former Tobacco user Allergies adhesive tape Allergy (Unknown, Verified 01/27/23 13:07) hives amlodipine [From Norvasc] Allergy (Unknown, Verified 01/27/23 13:07) Swelling od hands/feet bacitracin [From Cortisporin] Allergy (Unknown, Verified 01/27/23 13:07) Eye irritation brompheniramine [From Dimetapp Cold-Allergy (PE)] Allergy (Unknown, Verified 01/27/23 13:07) Body Rash calcium [From DHEA] Allergy (Unknown, Verified 01/27/23 13:07) Unknown calcium carbonate [From DHEA] Allergy (Unknown, Verified 01/27/23 13:07) Unknown cefaclor Allergy (Unknown, Verified 01/27/23 13:07) Perineum rash chlorpheniramine [From Fedahist] Allergy (Unknown, Verified 01/27/23 13:07) Body Rash clindamycin Allergy (Unknown, Verified 01/27/23 13:07) GI upset/pain/vomiting devil's claw Allergy (Unknown, Verified 01/27/23 13:07) unsure reaction dexbrompheniramine [From Drixoral] Allergy (Unknown, Verified 01/27/23 13:07) Body Rash diphenhydramine [From Benadryl] Allergy (Unknown, Verified 01/27/23 13:07) Body Rash doxazosin Allergy (Unknown, Verified 01/27/23 13:07) Extreme anxiety erythromycin base Allergy (Unknown, Verified 01/27/23 13:07) Perineum rash garlic Allergy (Unknown, Verified 01/27/23 13:07) Unknown gentamicin [From Garamycin] Allergy (Unknown, Verified 01/27/23 13:07) [eye drops] Eye swelling ginkgo biloba Allergy (Unknown, Verified 01/27/23 13:07) piercing pain in head guaifenesin [From Fedahist] Allergy (Unknown, Verified 01/27/23 13:07) Body Rash hydralazine Allergy (Unknown, Verified 01/27/23 13:07) Swelling of feet/legs hydrochlorothiazide Allergy (Unknown, Verified 01/27/23 13:07) Itchy palms hydrocortisone [From Cortisporin] Allergy (Unknown, Verified 01/27/23 13:07) Eye irritation meclizine Allergy (Unknown, Verified 01/27/23 13:07) very dry mouth methylsulfonylmethane [From MSM] Allergy (Unknown, Verified 01/27/23 13:07) Itchy palms nebivolol [From Bystolic] Allergy (Unknown, Verified 01/27/23 13:07) Swelling of feet/ legs neomycin [From Cortisporin] Allergy (Unknown, Verified 01/27/23 13:07) Eye irritation nifedipine [From Procardia] Allergy (Unknown, Verified 01/27/23 13:07) Swelling of feet and legs nut - unspecified Allergy (Unknown, Verified 01/27/23 13:07) mouth sores Peanut Butter Allergy (Unknown, Verified 01/27/23 13:07) mouth sores penicillin V Allergy (Unknown, Verified 01/27/23 13:07) Body rash Penicillins Allergy (Unknown, Verified 01/27/23 13:07) body rash phenylephrine [From Dimetapp Cold-Allergy (PE)] Allergy (Unknown, Verified 01/27/23 13:07) Body Rash polymyxin B [From Cortisporin] Allergy (Unknown, Verified 01/27/23 13:07) Eye irritation prasterone (DHEA) [From DHEA] Allergy (Unknown, Verified 01/27/23 13:07) Unknown propoxyphene [From Darvon] Allergy (Unknown, Verified 01/27/23 13:07) Unknown pseudoephedrine [From Drixoral] Allergy (Unknown, Verified 01/27/23 13:07) Body Rash shellfish derived Allergy (Unknown, Verified 01/27/23 13:07) itchy body Sulfa (Sulfonamide Antibiotics) Allergy (Unknown, Verified 01/27/23 13:07) Itchy palms sulfamethoxazole [From Bactrim] Allergy (Unknown, Verified 01/27/23 13:07) itchy palms trimethoprim [From Bactrim] Allergy (Unknown, Verified 01/27/23 13:07) itchy palms prednisone Allergy (Verified 01/27/23 13:07) Flushing Carditone Allergy (Unknown, Uncoded 01/27/23 13:07) Swelling of feet/legs; itchy body Do you need a note to return to daycare/school/sports/work: No HPI HPI Comments History of Present Illness Details 77-year-old female presents for dizziness consistent with vertigo. She has had recurrent vertigo over the past several years, however after receiving vestibular therapy from a physical therapist, she has not had any episodes in the past few years. She states that the room spinning started approximately 3 d ays ago, and she noted while she was at the eye doctor. She does not report any neurological symptoms, denies fevers, chills, falls and trauma. FORMERLY [facility], [facility] Medical History Aortic insufficiency CKD (chronic kidney disease) stage 3, GFR 30-59 ml/min Colonoscopy refused Dyslipidemia HTN (hypertension) Hypothyroid Mitral valve disorder Osteopenia Osteoporosis Surgical History History of breast biopsy History of tubal ligation Family History Father No problems noted. Mother Pancreatic cancer Social History Housing: Condominium Patient Tobacco Use Status: Former Tobacco user Years Smoked: 50 years ago e-Cigarette/Vaping Use: Never Used Second Hand Smoke Exposure: No service: No Current occupational status: retired Cognitive needs: No Hearing needs: No Vision needs: No Review of Systems Const Details: Constitutional: No Fever, No Chills Cardiovascular: No Chest Pain, No SOB Respiratory: No Cough, No Dyspnea Gastrointestinal: No Nausea, No Vomiting, No Diarrhea, No abdominal Pain Genitourinary: No Dysuria, No Hematuria Musculoskeletal: No joint pain, No Myalgias, No Joint Swelling Skin: No Skin lacerations, No rash Neuro: No Weakness, No Numbness, No Paresthesias, No Loss of Consciousness, positive Dizziness, No Headache All systems reviewed & are unremarkable except as noted in HPI and below Physical Exam Vital Signs: Last Vital Signs Temp 97.2 F 01/27/23 13:20 Pulse 48 L 01/27/23 13:20 BP 132/62 01/27/23 13:20 Pulse Ox 97 01/27/23 13:20 Oxygen Delivery Method Room Air 01/27/23 13:20 BMI result Body Mass Index 19.3 Appearance: Alert. Oriented X3. No acute distress. Eyes: Pupils equal, round and reactive to light. Neck: Normal inspection. Neck supple. CVS: Normal heart rate and rhythm. Pulses normal. Respiratory: No respiratory distress. Breath sounds normal. Skin: Skin warm and dry. Normal skin color. Normal skin turgor. Extremities: No lower extremity edema. Gait balance and coordinated with cane. Neuro: No motor deficit. No sensory deficit. Cranial nerves 2-12 intact Assessment & Plan Assessment & Plan (1) Vertigo: Code(s): R42 - Dizziness and giddiness Plan 77-year-old female presents for dizziness consistent with vertigo. She has had recurrent vertigo over the past several years, however after receiving vestibu lar therapy from a physical therapist, she has not had any episodes in the past few years. She states that the room spinning started approximately 3 days ago, and she noted while she was at the eye doctor. She does not report any neurological symptoms, denies fevers, chills, falls and trauma. NIH stroke scale 0. Farooq coma scale 15. Patient is alert oriented x4. Answering questions politely and appropriately. Speaking in complete sentences. Even unlabored respirations. Stable vital signs are within normal limits. Afebrile. Nontoxic. PERRLA. No nystagmus noted. Patient is requesting referral to PT. patient's primary care provider is a provider at this facility. Will order physical therapy referral. Patient respectfully declines medication as she has extensive amounts of allergies. Patient feels comfortable with referral, as she has had multiple episodes of vertigo in the past. Patient does understand signs symptoms indicate need for emergent intervention. Verbalized understanding of the discharge instructions Orders: Referrals Physical Medicine and Rehabilitation Referral R42 - Dizziness and giddiness Patient Instructions: You were evaluated for recurrent vertigo. Please follow-up with Physical therapy for vestibular therapy. Thank you for choosing this urgent care for evaluation. Please follow-up with primary care physician as needed. Return to the emergency department for any new, concerning, or worsening symptoms. Coding Level of Care Code Est Pt Level 3 (36629) Diagnoses Vertigo R42
[2023-01-27 13:20] VITALS: BP 132/62; PULSE 48; TEMP 36.2; O2SAT 97; BMI 19.3
== END 2023-01-27 13:46 | disposition home or self-care (01) ==
PROVIDERS: PCP Nurse Practitioner Family; Visit Provider Nurse Practitioner Family
DX: R42 Dizziness and giddiness (principal)
CPT/HCPCS: 99213

== ENCOUNTER 2023-01-30 11:15 | Outpatient (REF) | payer MEDICARE, BC, SELFPAY ==
[2023-01-30 15:05] LABS: Alanine Aminotransferase 29 U/L (0-31); Alkaline Phosphatase 92 U/L (39-117); Aspartate Amino Transferase 27 U/L (5-31); Bilirubin Direct 0.1 mg/dL (0.0-0.5); Total Protein 6.5 g/dL (6.5-8.0)
[2023-01-30 18:49] LABS: Bilirubin Total 0.3 mg/dL (0.0-1.0)
== END 2023-01-30 11:16 | disposition home or self-care (01) ==
LOC: HO.HMGCLDS 11:15
PROVIDERS: PCP Nurse Practitioner Family; Visit Provider Nurse Practitioner Family
DX: R74.8 Abnormal levels of other serum enzymes (principal)
CPT/HCPCS: 36415; 80076

== ENCOUNTER 2023-05-24 10:43 | Outpatient (AMB) | payer MEDICARE, BC, SELFPAY ==
[2023-05-24 11:07] VITALS: BP 138/62; PULSE 66; TEMP 36.4; O2SAT 99; BMI 21.3
--- NOTE | 2023-05-24 11:07 | AM.OFFWIN_ITS ---
Intake Vital Signs 05/24/23 11:07 Height 5 ft 4 in Weight 56.359 kg BMI 21.3 BP 138/62 Blood Pressure Location Rt brachial Position Sitting Pulse 66 Pulse Source Pulse Oximeter Temp 97.6 F Temp Source Temporal Artery Scan Pulse Oximetry (%) 99 Oxygen Delivery Method Room Air Intake Visit Reasons: EP, Right thumb pain ([phone]) Intake Note: Pt is here c/o right thumn pain that started 4 days ago. No falls or injuries noted. Patient Tobacco Use Status: Former Tobacco user Allergies adhesive tape Allergy (Unknown, Verified 05/24/23 11:07) hives amlodipine [From Norvasc] Allergy (Unknown, Verified 05/24/23 11:07) Swelling od hands/feet bacitracin [From Cortisporin] Allergy (Unknown, Verified 05/24/23 11:07) Eye irritation brompheniramine [From Dimetapp Cold-Allergy (PE)] Allergy (Unknown, Verified 05/24/23 11:07) Body Rash calcium [From DHEA] Allergy (Unknown, Verified 05/24/23 11:07) Unknown calcium carbonate [From DHEA] Allergy (Unknown, Verified 05/24/23 11:07) Unknown cefaclor Allergy (Unknown, Verified 05/24/23 11:07) Perineum rash chlorpheniramine [From Fedahist] Allergy (Unknown, Verified 05/24/23 11:07) Body Rash clindamycin Allergy (Unknown, Verified 05/24/23 11:07) GI upset/pain/vomiting devil's claw Allergy (Unknown, Verified 05/24/23 11:07) unsure reaction dexbrompheniramine [From Drixoral] Allergy (Unknown, Verified 05/24/23 11:07) Body Rash diphenhydramine [From Benadryl] Allergy (Unknown, Verified 05/24/23 11:07) Body Rash doxazosin Allergy (Unknown, Verified 05/24/23 11:07) Extreme anxiety erythromycin base Allergy (Unknown, Verified 05/24/23 11:07) Perineum rash garlic Allergy (Unknown, Verified 05/24/23 11:07) Unknown gentamicin [From Garamycin] Allergy (Unknown, Verified 05/24/23 11:07) [eye drops] Eye swelling ginkgo biloba Allergy (Unknown, Verified 05/24/23 11:07) piercing pain in head guaifenesin [From Fedahist] Allergy (Unknown, Verified 05/24/23 11:07) Body Rash hydralazine Allergy (Unknown, Verified 05/24/23 11:07) Swelling of feet/legs hydrochlorothiazide Allergy (Unknown, Verified 05/24/23 11:07) Itchy palms hydrocortisone [From Cortisporin] Allergy (Unknown, Verified 05/24/23 11:07) Eye irritation meclizine Allergy (Unknown, Verified 05/24/23 11:07) very dry mouth methylsulfonylmethane [From MSM] Allergy (Unknown, Verified 05/24/23 11:07) Itchy palms nebivolol [From Bystolic] Allergy (Unknown, Verified 05/24/23 11:07) Swelling of feet/ legs neomycin [From Cortisporin] Allergy (Unknown, Verified 05/24/23 11:07) Eye irritation nifedipine [From Procardia] Allergy (Unknown, Verified 05/24/23 11:07) Swelling of feet and legs nut - unspecified Allergy (Unknown, Verified 05/24/23 11:07) mouth sores Peanut Butter Allergy (Unknown, Verified 05/24/23 11:07) mouth sores penicillin V Allergy (Unknown, Verified 05/24/23 11:07) Body rash Penicillins Allergy (Unknown, Verified 05/24/23 11:07) body rash phenylephrine [From Dimetapp Cold-Allergy (PE)] Allergy (Unknown, Verified 05/24/23 11:07) Body Rash polymyxin B [From Cortisporin] Allergy (Unknown, Verified 05/24/23 11:07) Eye irritation prasterone (DHEA) [From DHEA] Allergy (Unknown, Verified 05/24/23 11:07) Unknown propoxyphene [From Darvon] Allergy (Unknown, Verified 05/24/23 11:07) Unknown pseudoephedrine [From Drixoral] Allergy (Unknown, Verified 05/24/23 11:07) Body Rash shellfish derived Allergy (Unknown, Verified 05/24/23 11:07) itchy body Sulfa (Sulfonamide Antibiotics) Allergy (Unknown, Verified 05/24/23 11:07) Itchy palms sulfamethoxazole [From Bactrim] Allergy (Unknown, Verified 05/24/23 11:07) itchy palms trimethoprim [From Bactrim] Allergy (Unknown, Verified 05/24/23 11:07) itchy palms prednisone Allergy (Verified 05/24/23 11:07) Flushing Carditone Allergy (Unknown, Uncoded 01/27/23 13:07) Swelling of feet/legs; itchy body Do you need a note to return to daycare/school/sports/work: No HPI HPI Comments History of Present Illness Details 1136 77 year old female presents w/ right mirian mb pain since this weekend after gardening and using a rake. Patient reports pain worse w/ movement and better at rest. Pain is throughout her entire right thumb. Denies blunt trauma. Denies numbness, tingling PE- Full rom to all digits b/l including the thumb, Normal reposition and opposition to all fingers b/l. Cap refil < 2 seconds to all UE digits. Full rom to all UE digits but slight discomfort w/ rom of thumb. No overlying skin changes or TTP of fingers b/l. Physical exam concerning for osteoarthritis of right thumb. All other differentials include gout, inflammatory arthritis. Unlikely fracture, dislocation, neurovascular compromise or threat to [place]. Offered pain meds patient states she will stick with home remedies. Will given Francisco wrap for compression. Educated on proper use. X-ray ordered. Educated patient on diagnosis and treatment plan, answered all question, patient verbalizes understanding. At this time patient will be discharged home, advised to return with new or worsening symptoms. Educated on worrisome signs and symptoms and when to return. At this time I feel comfortable discharge home. [facility] Medical History Dyslipidemia Colonoscopy refused Osteoporosis Hypothyroid HTN (hypertension) Aortic insufficiency Osteopenia CKD (chronic kidney disease) stage 3, GFR 30-59 ml/min Mitral valve disorder Surgical History History of breast biopsy History of tubal ligation Family History Father No problems noted. Mother Pancreatic cancer Social History Housing: Condominium Patient Tobacco Use Status: Former Tobacco user Years Smoked: 50 years ago e-Cigarette/Vaping Use: Never Used Second Hand Smoke Exposure: No service: No Current occupational status: retired Cognitive needs: No Hearing needs: No Vision needs: No Review of Systems Const Details: Constitutional : No Weight loss, No Fever, No Chills, No Fatigue, No Malaise ENT/Mouth : No sore throat, No Rhinorrhea Eyes: No Eye Pain, No Swelling, No Redness Cardiovascular : No Chest Pain, No SOB, No Dyspnea on Exertion, No Orthopnea, No Edema, No Palpitations Respiratory : No Cough, No Sputum, No Wheezing Gastrointestinal : No Nausea, No Vomiting, No Diarrhea, No Constipation, No abdominal Pain, No Hematochezia, No Melena Genitourinary : No Dysuria, No Urinary Frequency, No Hematuria, Musculoskeletal : + joint pain, No Myalgias, No Joint Swelling Skin : No Skin Lesions, No rash Neuro : No Weakness, No Numbness, No Dizziness, No Headache Psych : No Anxiety/Panic, No Depression All other systems reviewed and are negative All systems reviewed & are unremarkable except as noted in HPI and below Physical Exam Vital Signs: Last Vital Signs Temp 97.6 F 05/24/23 11:07 Pulse 66 05/24/23 11:07 BP 138/62 05/24/23 11:07 Pulse Ox 99 05/24/23 11:07 Oxygen Delivery Method Room Air 05/24/23 11:07 BMI result Body Mass Index 21.3 Vital signs state Appearance: Alert.? Oriented X3.? No acute distress.? Head: Normocephalic, atraumatic, no step-offs or deformities Eyes: Pupils equal, round and reactive to light.? CVS: Normal heart rate and rhythm.? Pulses normal.? Respiratory: No respiratory distress.? Breath sounds normal.? Skin: Skin warm and dry.? Normal skin color.? Normal skin turgor.? Extremities: No lower extremity edema.? No calf ttp. 5/5 strength to bilateral upper and lower extremities Full rom to all digits b/l including the thumb, Normal reposition and opposition to all fingers b/l. Cap refil < 2 seconds to all UE digits. Full rom to all UE digits but slight discomfort w/ rom of thumb. No overlying skin changes or TTP of fingers b/l. Neuro: Oriented X 3.? No motor deficit.? No sensory deficit. CN 2-12 intact Assessment & Plan Assessment & Plan (1) Pain of right thumb: Code(s): M79.644 - Pain in right finger(s) Plan Take your medications as prescribed. If you were prescribed antibiotics today, it is important that you take your medication to their entirety, do not skip any doses, do not finish them early. Follow-up with your primary care provider this week. Return to the emergency department with new or worsening symptoms. Such as fevers, chills, chest pain, shortness of breath, nausea, vomiting, dizziness, headache, vision changes, lethargy In case of emergency call 911 Orders: Orders XR hand RT 2V Today M79.644 - Pain in right finger(s) Coding Level of Care Code Est Pt Level 3 (91475) Diagnoses Pain of right thumb M79.644
== END 2023-05-24 12:08 | disposition home or self-care (01) ==
PROVIDERS: PCP Nurse Practitioner Family; Visit Provider Physician Assistant
DX: M79.644 Pain in right finger(s) (principal)
CPT/HCPCS: 99213

== ENCOUNTER 2023-05-24 11:35 | Outpatient (REF) | payer MEDICARE, BC, SELFPAY ==
--- NOTE | ~2023-05-24 | XR_ITS ---
EXAMINATION: XR HAND, RIGHT CLINICAL INFORMATION: Pain in right thumb COMPARISON: 07/08/2019 TECHNIQUE: PA, lateral, and oblique views of the right hand. FINDINGS: There are changes of degenerative osteoarthritis in the first carpometacarpal joint with narrowing of the joint space, subchondral cysts formation, marginal spurring. There is no fracture seen. There are mild changes of osteoarthritis seen in interphalangeal joints of of the fingers. Soft tissues unremarkable. XR/XR hand RT 2V IMPRESSION: Changes of osteoarthritis at the first carpometacarpal joint
== END 2023-05-24 11:36 | disposition home or self-care (01) ==
LOC: HO.HMGCX 11:35
PROVIDERS: PCP Nurse Practitioner Family; Visit Provider Nurse Practitioner Family
DX: M79.644 Pain in right finger(s) (principal)
CPT/HCPCS: 73120

== ENCOUNTER 2023-09-20 11:16 | Outpatient (AMB) | payer MEDICARE, BC, SELFPAY ==
--- NOTE | 2023-09-20 11:19 | AM.OFFVISMDC ---
Intake Vital Signs 09/20/23 11:20 Height 5 ft 4 in Weight 130 lb 2 oz BMI 22.3 BP 170/70 H Blood Pressure Location Lt brachial Position Sitting Pulse 66 Pulse Source Pulse Oximeter Pulse Oximetry (%) 97 Oxygen Delivery Method Room Air Intake Visit Reasons: SWV Intake Note: pt is here for medicare wellness visit Plate And Weld Inspector Required: No Accompanied by: Self / Same As Patient Allergies adhesive tape Allergy (Unknown, Verified 09/20/23 11:20) hives amlodipine [From Norvasc] Allergy (Unknown, Verified 09/20/23 11:20) Swelling od hands/feet bacitracin [From Cortisporin] Allergy (Unknown, Verified 09/20/23 11:20) Eye irritation brompheniramine [From Dimetapp Cold-Allergy (PE)] Allergy (Unknown, Verified 09/20/23 11:20) Body Rash calcium [From DHEA] Allergy (Unknown, Verified 09/20/23 11:20) Unknown calcium carbonate [From DHEA] Allergy (Unknown, Verified 09/20/23 11:20) Unknown cefaclor Allergy (Unknown, Verified 09/20/23 11:20) Perineum rash chlorpheniramine [From Fedahist] Allergy (Unknown, Verified 09/20/23 11:20) Body Rash clindamycin Allergy (Unknown, Verified 09/20/23 11:20) GI upset/pain/vomiting devil's claw Allergy (Unknown, Verified 09/20/23 11:20) unsure reaction dexbrompheniramine [From Drixoral] Allergy (Unknown, Verified 09/20/23 11:20) Body Rash diphenhydramine [From Benadryl] Allergy (Unknown, Verified 09/20/23 11:20) Body Rash doxazosin Allergy (Unknown, Verified 09/20/23 11:20) Extreme anxiety erythromycin base Allergy (Unknown, Verified 09/20/23 11:20) Perineum rash garlic Allergy (Unknown, Verified 09/20/23 11:20) Unknown gentamicin [From Garamycin] Allergy (Unknown, Verified 09/20/23 11:20) [eye drops] Eye swelling ginkgo biloba Allergy (Unknown, Verified 09/20/23 11:20) piercing pain in head guaifenesin [From Fedahist] Allergy (Unknown, Verified 09/20/23 11:20) Body Rash hydralazine Allergy (Unknown, Verified 09/20/23 11:20) Swelling of feet/legs hydrochlorothiazide Allergy (Unknown, Verified 09/20/23 11:20) Itchy palms hydrocortisone [From Cortisporin] Allergy (Unknown, Verified 09/20/23 11:20) Eye irritation meclizine Allergy (Unknown, Verified 09/20/23 11:20) very dry mouth methylsulfonylmethane [From MSM] Allergy (Unknown, Verified 09/20/23 11:20) Itchy palms nebivolol [From Bystolic] Allergy (Unknown, Verified 09/20/23 11:20) Swelling of feet/ legs neomycin [From Cortisporin] Allergy (Unknown, Verified 09/20/23 11:20) Eye irritation nifedipine [From Procardia] Allergy (Unknown, Verified 09/20/23 11:20) Swelling of feet and legs nut - unspecified Allergy (Unknown, Verified 09/20/23 11:20) mouth sores Peanut Butter Allergy (Unknown, Verified 09/20/23 11:20) mouth sores penicillin V Allergy (Unknown, Verified 09/20/23 11:20) Body rash Penicillins Allergy (Unknown, Verified 09/20/23 11:20) body rash phenylephrine [From Dimetapp Cold-Allergy (PE)] Allergy (Unknown, Verified 09/20/23 11:20) Body Rash polymyxin B [From Cortisporin] Allergy (Unknown, Verified 09/20/23 11:20) Eye irritation prasterone (DHEA) [From DHEA] Allergy (Unknown, Verified 09/20/23 11:20) Unknown propoxyphene [From Darvon] Allergy (Unknown, Verified 09/20/23 11:20) Unknown pseudoephedrine [From Drixoral] Allergy (Unknown, Verified 09/20/23 11:20) Body Rash shellfish derived Allergy (Unknown, Verified 09/20/23 11:20) itchy body Sulfa (Sulfonamide Antibiotics) Allergy (Unknown, Verified 09/20/23 11:20) Itchy palms sulfamethoxazole [From Bactrim] Allergy (Unknown, Verified 09/20/23 11:20) itchy palms trimethoprim [From Bactrim] Allergy (Unknown, Verified 09/20/23 11:20) itchy palms prednisone Allergy (Verified 09/20/23 11:20) Flushing Carditone Allergy (Unknown, Uncoded 01/27/23 13:07) Swelling of feet/legs; itchy body Medication List - Last Reconciled 09/20/23 by ANGIE Baumann furosemide 30 mg (1.5 x 20 mg) PO DAILY 90 days lisinopril 40 mg PO DAILY 90 days metoprolol succinate ER 75 mg (1.5 x 50 mg) PO DAILY 90 days thyroid (pork) ([facility] Thyroid) 60 mg PO DAILY Do you need a note to return to daycare/school/sports/work: No HPI SWV HPI Details Pt is here for an SWV. Denies fever, chills, and dizziness. [place] of care in scan pile. PPP will be scanned in chart and copy will be given to pt. Cologuard is up to date. Mammo is up to date. HPI Comments History of Present Illness Details OV: HTN: Blood pressure is managed with furosemide 30mg, lisinopril 40mg, and metopolol 75mg. Pt's blood pressure at home is stable. Will order labs. Denies chest pain, shortness of breath, headache, dizziness, and blurred vision. Pt would like her ears checked, thinks they are impacted. [facility] Medical History Dyslipidemia Colonoscopy refused Osteoporosis Hypothyroid HTN (hypertension) Aortic insufficiency Osteopenia CKD (chronic kidney disease) stage 3, GFR 30-59 ml/min Mitral valve disorder Surgical History History of breast biopsy History of tubal ligation Family History Father No problems noted. Mother Pancreatic cancer Social History Housing: Condominium Patient Tobacco Use Status: Former Tobacco user Years Smoked: 50 years ago e-Cigarette/Vaping Use: Never Used Second Hand Smoke Exposure: No service: No Current occupational status: retired Cognitive needs: No Hearing needs: No Vision needs: No Questionnaire Medicare Wellness Checkup [age] What gender do you identify with?: female During the past 4 weeks, how much have you been bothered by emotional problems such as feeling anxious, depressed, irritable, sad or downhearted, and blue?: moderately During the past 4 weeks, has your physical & emotional health limited your social activities with family, friends, neighbors, or groups?: not at all During the past 4 weeks, how much bodily pain have you generally had?: very mild pain During the past 4 weeks, was someone available to help you if you needed & wanted help?: yes, as much as I wanted During the past 4 weeks, what was the hardest physical activity you could do for at least 2 minutes?: moderate Can you get to places out of walking distance without help? (For eg., can you travel alone on buses, taxis or drive your car?): Yes Can you go shopping for groceries or clothes without someone's help?: Yes Can you prepare your own meals?: Yes Can you do your housework without help?: Yes Because of any health problems, do you need the help of another person with your personal care needs such as eating, bathing, dressing or getting around the house?: No Can you handle your own money without help?: Yes During the past 4 weeks, how would you rate your health in general?: excellent During the past 4 weeks how have things been going for you?: very well; could hardly better Are you having difficulties driving your car?: no Do you always fasten your seat belt when you are in a car?: yes, usually During past 4 weeks, have you been bothered by the following: never: Falling or dizzy when standing up, Sexual problems?, Trouble eating well?, Teeth or denture problems?, Problems using the telephone? and Tiredness or fatigue? Have you fallen 2 or more times in the past year?: No Are you afraid of falling?: No Are you a smoker?: no During the past 4 weeks, how many drinks of wine, beer, or other alcoholic beverages did you have?: no alcohol at all Do you exercise for about 20 minutes 3 or more times a week?: yes, most of the time Have you been given information to help with the following?: no: Hazards in your house that might hurt you? and no: Keeping track of your medications? How often do you have trouble taking medicines the way you have been told to take them?: I always take medicine as prescribed How confident are you that you can control & manage most of your health problems?: very confident What is your race?: White Mini Mental State Exam (MMSE) Orientation What is the (year) (season) (date) (day) (month)?: year (2023) Where are we (state) (county) (town or city) (hospital) (floor[place] state [place] Registration Name of 3 unrelated objects clearly and slowly, then ask patient to repeat all 3 of them. (1st repeat determines score. Make sure they can repeat all three): object 1, object 2 and object 3 Attention & Calculation (CHOOSE ONE) Spell WORLD backwards (DLROW): 5 letters Recall Ask patient to repeat the 3 items from question #3.: object 1, object 2 and object 3 Language Show patient a wristwatch & ask what it is. Repeat for pencil.: watch and pencil Ask the patient to repeat the phrase 'No ifs, ands, or buts' after you.: correct Ask the patient to 'take a piece of paper with their right hand' 'fold paper in half' 'place paper on floor': take paper in right hand, fold paper in half and place paper on floor Print the sentence 'CLOSE YOUR EYES' on a piece. If patient actually closes eyes then score.: followed written direction Give patient a blank piece of paper & ask to write a sentence. Score if it contains a noun & verb.: sentence contains subject and verb Ask patient to copy figure of intersecting pentagons exactly. Score if all 10 angles & 2 intersects are included.: all 10 angles present & 2 are intersected Score Score: 22 Activity of Daily Living Bathing - sponge bath, tub bath or shower: receives no assistance (gets in/out by self, if usual bathing means Dressing - getting clothes from closets & drawers, including inner/outer garments & fasteners.: gets clothes & gets completely dressed without help Toileting - going to the 'toilet room' for urine/bowel elimination & cleaning self/arranging clothes: goes to toilet room, cleans self, arranges clothes without help Transfer: moves in & out of bed and chair without help (may use support object) Continence: controls urination/bowel movements completely by self Feeding: feeds self without help Total Score: 0 Information obtained from: patient Using telephone: independent Traveling: independent Shopping: independent Preparing meals: independent Housework: independent Taking medicine: independent Managing money: independent PHQ-9 Over the last 2 weeks, how often have you been bothered by any of the following problems? 1. Little interest or pleasure in doing things: not at all 2. Feeling down, depressed, or hopeless: not at all 3. Trouble falling or staying asleep, or sleeping too much: not at all 4. Feeling tired or having little energy: several days 5. Poor appetite or overeating: not at all 6. Feeling bad about yourself - or that you are a failure or have let yourself or your family down: not at all 7. Trouble concentrating on things, such as reading the newspaper or watching television: not at all 8. Moving or speaking so slowly that other people could have noticed. Or the opposite - being so fidgety or restless that you have been moving around a lot more than usual: not at all 9. Thoughts that you would be better off or of hurting yourself in some way: not at all Total score: 1 Depression Screening Interpretation: Negative Depression Screening Done: Yes 77706 - PHQ-9 Billing: Yes Source: Developed by Drs. Maximiliano Sumner, Ekaterina Khan, Ar Del Cid and colleagues, with an educational meagan from [employer]. CHASITY-7 AMB Questionnaire CHASITY-7 Date CHASITY - 7 assessed: 09/20/23 Feeling nervous, anxious, or on edge: 0 = Not at all Not being able to stop or control worryin = Not at all Worrying too much about different things: 0 = Not at all Trouble relaxin = Not at all Being so restless that it is hard to sit still: 0 = Not at all Becoming easily annoyed or irritable: 0 = Not at all Feeling afraid as if something awful might happen: 0 = Not at all Total CHASITY-7 score (0-4 normal; 5-9 mild; 10-14 moderate; 15-21 severe): 0 Source: Developed by Drs. Maximiliano Sumner, Ekaterina Khan, Ar Del Cid and colleagues, with an educational meagan from [employer]. CHASITY-7 Assessment Billing CHASITY-7 Assessment Tool: CHASITY-7 Assessment 49670 AUDIT C Alcohol Use Questionnaire (AUDIT-C) 1. How often do you have a drink containing alcohol?: Never 3. How often do you have six or more drinks on one occasion?: Never Total Score: 0 Score Reviewed/Action Taken: Yes Review of Systems Const Reports as per HPI Physical Exam Vital Signs: Last Vital Signs Pulse 66 09/20/23 11:20 BP 170/70 H 09/20/23 11:20 Pulse Ox 97 09/20/23 11:20 Oxygen Delivery Method Room Air 09/20/23 11:20 BMI result Body Mass Index 22.3 Const General: cooperative Orientation/consciousness: patient oriented x3 HEENT Other: cerumen noted bilat, after ear lavage TMs easily seen Resp Effort & Inspection: normal respiratory effort Auscultation: clear to auscultation bilaterally Cardio Rate: regular rate Rhythm: regular rhythm Heart sounds: S1 normal heart sound present, S2 normal heart sound present and Murmur heart sound present systolic Neuro Other: - romberg, can tandem walk, can walk and turn, can rise from sitting to standing, passed whisper test General: patient oriented x3 Psych Appearance: grossly normal Mental Status: mental status grossly normal Speech and movement: Normal speech and movement present Affect: normal affect Attitude: cooperative Thought process: Normal thought process present Thought content: Normal thought content present Insight: Good insight present (Psych) Judgement: Good judgement present (Psych) Office Procedures Cerumen Removal From which ear canal was the cerumen removed: bilateral Removal: irrigation Notes: patient tolerated procedure well and ear canal clear [id number] Irrigation/Lavage Assessment & Plan Assessment & Plan (1) Hypertension: Code(s): I10 - Essential (primary) hypertension Qualifiers: Hypertension type: essential hypertension Qualified Code(s): I10 - Essential (primary) hypertension Plan: BPs stable at home (see scanned copy) (2) Encounter for subsequent annual wellness visit in Medicare patient: Code(s): Z00.00 - Encounter for general adult medical examination without abnormal findings Plan: AWV (3) Cerumen impaction: Code(s): H61.20 - Impacted cerumen, unspecified ear Plan: after ear lavage, TMs easily seen Orders: Orders Comprehensive [place]. Panel Fast Today I10 - Essential (primary) hypertension TSH reflex Free T4 Today I10 - Essential (primary) hypertension UA CC w/rflx Micro + Cult Today I10 - Essential (primary) hypertension Complete Blood Count Auto Diff Today I10 - Essential (primary) hypertension Lipid Panel Today I10 - Essential (primary) hypertension Quality Reporting (2019) Depression/Bipolar (159/160/161/177) PHQ-9: Total score: 1 Coding Level of Care Code Medicare Subsequent (G0439) Est Pt Level 3 (50174) Diagnoses Essential hypertension I10 Hypertension type: essential hypertension Encounter for subsequent annual wellness visit in Medicare patient Z00.00 Cerumen impaction H61.20 CPT Codes Office Procedure - CPT: 16580-[id number] Irrigation/Lavage ([id number]) Additional Codes CHASITY-7 Assessment Billing - CHASITY-7 Assessment Tool: CHASITY-7 Assessment 22547 ([id number]) Advance Care Planning Forms completed: Health Care Proxy (pt will drop off copy), MOLST (pt will bring in copy) and Living will (pt reports this done)
[2023-09-20 11:20] VITALS: BP 170/70; PULSE 66; O2SAT 97; BMI 22.3
== END 2023-09-20 12:33 | disposition home or self-care (01) ==
PROVIDERS: PCP Nurse Practitioner Family; Visit Provider Nurse Practitioner Family
DX: Z00.00 Encounter for general adult medical examination without abnormal findings (principal); I10 Essential (primary) hypertension; H61.23 Impacted cerumen, bilateral
CPT/HCPCS: 69209; 99213; G0439

== ENCOUNTER 2024-02-27 07:33 | Outpatient (REF) | payer MEDICARE, BC, SELFPAY ==
[2024-02-27 10:12] LABS: MANUAL DIFF FLAG NO
[2024-02-27 10:16] LABS: Basophils Percent Auto 0.8 % (0-2); Eosinophils Absolute Auto 0.3 X10*3/uL (0.0-0.4); Eosinophils Percent Auto 5.2 % (0-4); Hemoglobin 13.7 g/dl (12.0-16.0); Imm Gran Abs Auto 0.01 X10*3/uL (0.00-0.03); Imm Gran Pct Auto 0.2 % (0.0-0.4); Lymphocytes Absolute Auto 1.8 X10*3/uL (1.2-4.9); Lymphocytes Percent Auto 35.1 % (20-40); Mean Corpuscular HGB Conc 32.6 g/dl (31.0-35.0); Mean Corpuscular Hemoglobin 30.2 pg (27.0-33.0); Mean Corpuscular Volume 92.7 fL (80.0-98.0); Mean Platelet Volume 10.3 fL (9.4-12.3); Monocytes Absolute Auto 0.6 X10*3/uL (0.1-1.2); Monocytes Percent Auto 12.6 % (2-11); Neutrophils Absolute Auto 2.3 x10*3/uL (2.0-8.3); Neutrophils Percent Auto 46.1 % (45-73); Platelet Count 179 X10*3/uL (160-400); Red Blood Count 4.53 X10*6/uL (4.20-5.50); Red Cell Distribution Width 14.2 % (11.0-16.0)
[2024-02-27 10:50] LABS: Alanine Aminotransferase 16 U/L (0-31); Albumin Level 3.9 g/dL (3.5-5.0); Alkaline Phosphatase 64 U/L (39-117); Anion Gap 12 (12-20); Aspartate Amino Transferase 23 U/L (5-31); Bilirubin Total 0.5 mg/dL (0.0-1.0); Blood Urea Nitrogen 36 mg/dL (9-16); Calcium 9.7 mg/dL (8.4-10.2); Carbon Dioxide 28 mmol/L (22-29); Chloride 106 mmol/L (96-108); Cholesterol 181 mg/dL (<200); Estimated Glomerular Filt Rate 51; Glucose Fasting 99 mg/dL (60-99); HDL Cholesterol 69 mg/dL (>40); LDL Cholesterol Calculated 104 mg/dL (<100); Potassium 4.1 mmol/L (3.3-5.1); Sodium 142 mmol/L (135-145); Total Protein 6.4 g/dL (6.5-8.0); Triglycerides 43 mg/dL (<150)
[2024-02-27 10:55] LABS: TSH reflex Free T4 1.76 uIU/mL (0.32-4.0)
[2024-02-27 10:58] LABS: Appearance Urine Clear; Color Urine Yellow; Glucose Urine UA Negative (Negative); Leukocyte Esterase Urine Moderate (2+) (Negative); Nitrite Urine Negative (Negative); PH 7.5 (5.0-9.0); Specific Gravity - Urine 1.015 (1.005-1.025); UMIC TRIGGER UACC YES; Urine Blood Negative (Negative); Urine Ketones Negative (Negative); Urine Protein Negative (Neg-Trace)
[2024-02-27 11:22] LABS: Bacteria Urine None Seen (None Seen); Hyaline Casts Urine 0-2 /LPF (0-2); RBC Urine 0-2 /HPF (0-2); Squamous Epithelial Cell Urine 0-2 /HPF (0-2); WBC Urine 0-5 /HPF (0-5)
== END 2024-02-27 07:34 | disposition home or self-care (01) ==
LOC: HO.HMGCLDS 07:33
PROVIDERS: PCP Nurse Practitioner Family; Visit Provider Nurse Practitioner Family
DX: I10 Essential (primary) hypertension (principal)
CPT/HCPCS: 36415; 80053; 80061; 81001; 84443; 85025

== ENCOUNTER 2024-03-20 08:13 | Outpatient (REF) | payer MEDICARE, BC, SELFPAY ==
--- NOTE | ~2024-03-20 | XR_ITS ---
EXAMINATION: XR SHOULDER, RIGHT CLINICAL INFORMATION: Pain right shoulder. COMPARISON: 09/29/2022 TECHNIQUE: AP external rotation, Grashey, scapular Y, and axillary views of the right shoulder. FINDINGS: Moderate degenerative changes in the acromioclavicular joint. Diffuse demineralization. Dextroscoliosis of the imaged upper thoracic spine with degenerative changes. Glenohumeral alignment preserved. Narrowing of the subacromial space. XR/XR shoulder RT min 2V IMPRESSION: Moderate degenerative changes in the right shoulder. Electronically signed by: Kim Langley MD 04/02/2024 12:31 PM EDT
== END 2024-03-20 08:14 | disposition home or self-care (01) ==
LOC: HO.HMGCX 08:13
PROVIDERS: PCP Nurse Practitioner Family; Visit Provider Nurse Practitioner Family
DX: M25.511 Pain in right shoulder (principal); M81.0 Age-related osteoporosis without current pathological fracture; Z91.81 History of falling
CPT/HCPCS: 73030; 96127; 99212

== ENCOUNTER 2024-03-20 08:13 | Outpatient (AMB) | payer MEDICARE, BC, SELFPAY ==
[2024-03-20 08:15] VITALS: BP 180/80; PULSE 66; O2SAT 98; BMI 22.8
--- NOTE | 2024-03-20 08:15 | A.OFFPC_ITS ---
Vital Signs 03/20/24 08:15 Height 5 ft 4 in Weight 133 lb BMI 22.8 BP 180/80 H Blood Pressure Location Lt brachial Position Sitting Pulse 66 Pulse Source Pulse Oximeter Pulse Oximetry (%) 98 Intake Visit Reasons: 6M F/U Intake Note: pt is here for 6 month follow up Credit Card Associate Required: No Accompanied by: Self / Same As Patient Allergies adhesive tape Allergy (Unknown, Verified 03/20/24 08:16) hives amlodipine [From Norvasc] Allergy (Unknown, Verified 03/20/24 08:16) Swelling od hands/feet bacitracin [From Cortisporin] Allergy (Unknown, Verified 03/20/24 08:16) Eye irritation brompheniramine [From Dimetapp Cold-Allergy (PE)] Allergy (Unknown, Verified 03/20/24 08:16) Body Rash calcium [From DHEA] Allergy (Unknown, Verified 03/20/24 08:16) Unknown calcium carbonate [From DHEA] Allergy (Unknown, Verified 03/20/24 08:16) Unknown cefaclor Allergy (Unknown, Verified 03/20/24 08:16) Perineum rash chlorpheniramine [From Fedahist] Allergy (Unknown, Verified 03/20/24 08:16) Body Rash clindamycin Allergy (Unknown, Verified 03/20/24 08:16) GI upset/pain/vomiting devil's claw Allergy (Unknown, Verified 03/20/24 08:16) unsure reaction dexbrompheniramine [From Drixoral] Allergy (Unknown, Verified 03/20/24 08:16) Body Rash diphenhydramine [From Benadryl] Allergy (Unknown, Verified 03/20/24 08:16) Body Rash doxazosin Allergy (Unknown, Verified 03/20/24 08:16) Extreme anxiety erythromycin base Allergy (Unknown, Verified 03/20/24 08:16) Perineum rash garlic Allergy (Unknown, Verified 03/20/24 08:16) Unknown gentamicin [From Garamycin] Allergy (Unknown, Verified 03/20/24 08:16) [eye drops] Eye swelling ginkgo biloba Allergy (Unknown, Verified 03/20/24 08:16) piercing pain in head guaifenesin [From Fedahist] Allergy (Unknown, Verified 03/20/24 08:16) Body Rash hydralazine Allergy (Unknown, Verified 03/20/24 08:16) Swelling of feet/legs hydrochlorothiazide Allergy (Unknown, Verified 03/20/24 08:16) Itchy palms hydrocortisone [From Cortisporin] Allergy (Unknown, Verified 03/20/24 08:16) Eye irritation meclizine Allergy (Unknown, Verified 03/20/24 08:16) very dry mouth methylsulfonylmethane [From MSM] Allergy (Unknown, Verified 03/20/24 08:16) Itchy palms nebivolol [From Bystolic] Allergy (Unknown, Verified 03/20/24 08:16) Swelling of feet/ legs neomycin [From Cortisporin] Allergy (Unknown, Verified 03/20/24 08:16) Eye irritation nifedipine [From Procardia] Allergy (Unknown, Verified 03/20/24 08:16) Swelling of feet and legs nut - unspecified Allergy (Unknown, Verified 03/20/24 08:16) mouth sores Peanut Butter Allergy (Unknown, Verified 03/20/24 08:16) mouth sores penicillin V Allergy (Unknown, Verified 03/20/24 08:16) Body rash Penicillins Allergy (Unknown, Verified 03/20/24 08:16) body rash phenylephrine [From Dimetapp Cold-Allergy (PE)] Allergy (Unknown, Verified 03/20/24 08:16) Body Rash polymyxin B [From Cortisporin] Allergy (Unknown, Verified 03/20/24 08:16) Eye irritation prasterone (DHEA) [From DHEA] Allergy (Unknown, Verified 03/20/24 08:16) Unknown propoxyphene [From Darvon] Allergy (Unknown, Verified 03/20/24 08:16) Unknown pseudoephedrine [From Drixoral] Allergy (Unknown, Verified 03/20/24 08:16) Body Rash shellfish derived Allergy (Unknown, Verified 03/20/24 08:16) itchy body Sulfa (Sulfonamide Antibiotics) Allergy (Unknown, Verified 03/20/24 08:16) Itchy palms sulfamethoxazole [From Bactrim] Allergy (Unknown, Verified 03/20/24 08:16) itchy palms trimethoprim [From Bactrim] Allergy (Unknown, Verified 03/20/24 08:16) itchy palms prednisone Allergy (Verified 03/20/24 08:16) Flushing Carditone Allergy (Unknown, Uncoded 01/27/23 13:07) Swelling of feet/legs; itchy body Medication List - Last Reconciled 03/20/24 by ANGIE Baumann furosemide 30 mg (1.5 x 20 mg) PO DAILY 90 days lisinopril 40 mg PO DAILY 90 days metoprolol succinate ER 100 mg PO DAILY 90 days thyroid (pork) ([place] Thyroid) 60 mg PO DAILY Tobacco use date assessed: 03/20/24 Fall risk assessment: No Falls in past year Last assessed Fall Risk: 03/20/24 Dental Screening Dental Screen Date: 03/20/24 Did you have a dental visit in the last 12 months?: Yes Did you have a dental problem in the last 6 months where you did not have access to dental care?: No Was dental information given to patient?: Patient has dentist HPI 6M F/U HPI Details Pt reports falling on Monday due to tripping over a cord. She now c/o right shoulder pain, denied hitting her head. Will order an XR. Will also refer to PT. HTN: Blood pressure is managed with furosemide 30mg, lisinopril 40mg, and metoprolol 75mg. Pt's blood pressure is averaging in the 140s/70s at home. Will increase metoprolol to 100mg. Denies chest pain, shortness of breath, headache, dizziness, and blurred vision. Pt's BP is elevated in the office, pt is very anxious [facility] Medical History Fall Dyslipidemia Colonoscopy refused Osteoporosis Hypothyroid HTN (hypertension) Aortic insufficiency Osteopenia CKD (chronic kidney disease) stage 3, GFR 30-59 ml/min Mitral valve disorder Surgical History History of breast biopsy History of tubal ligation Family History Father No problems noted. Mother Pancreatic cancer Social History Housing: Condominium Patient Tobacco Use Status: Former Tobacco user Years Smoked: 50 years ago e-Cigarette/Vaping Use: Never Used Second Hand Smoke Exposure: No service: No Current occupational status: retired Cognitive needs: No Hearing needs: No Vision needs: No Questionnaire PHQ-9 Over the last 2 weeks, how often have you been bothered by any of the following problems? 1. Little interest or pleasure in doing things: not at all 2. Feeling down, depressed, or hopeless: not at all 3. Trouble falling or staying asleep, or sleeping too much: not at all 4. Feeling tired or having little energy: not at all 5. Poor appetite or overeating: not at all 6. Feeling bad about yourself - or that you are a failure or have let yourself or your family down: not at all 7. Trouble concentrating on things, such as reading the newspaper or watching television: not at all 8. Moving or speaking so slowly that other people could have noticed. Or the opposite - being so fidgety or restless that you have been moving around a lot more than usual: not at all 9. Thoughts that you would be better off or of hurting yourself in some way: not at all Total score: 0 Depression Screening Interpretation: Negative Depression Screening Done: Yes 09576 - PHQ-9 Billing: Yes Source: Developed by Drs. Maximiliano Sumner, Ekaterina Khan, Ar Del Cid and colleagues, with an educational meagan from [employer]. Thrive Questionnaire Date Thrive assessed: 03/20/24 I am a: Patient What is your living situation today?: I have a steady place to live Within the past 12 months, did the food you bought not last and you didn't have the money to get more?: Never true Within the past 12 months, did you worry whether your food would run out before you got money to buy more?: Never true Do you have trouble paying for medicines?: No Do you have trouble getting transportation to medical appointments?: I choose not to answer this question Do you have trouble paying your heating and electricity bill?: I choose not to answer this question Do you have trouble taking care of your child, family member or friend?: I choose not to answer this question Do you have trouble with day-to-day activities such as bathing, preparing meals, shopping, managing finances, etc.?: I choose not to answer this question Are you interested in more education?: I choose not to answer this question Please select the resources that you would like help with: None Currently or been in a relationship where the following occur: I choose not to answer THRIVE Score: 0 AUDIT C Alcohol Use Questionnaire (AUDIT-C) 1. How often do you have a drink containing alcohol?: Never 3. How often do you have six or more drinks on one occasion?: Never Total Score: 0 Score Reviewed/Action Taken: Yes CHASITY-7 AMB Questionnaire CHASITY-7 Date CHASITY - 7 assessed: 03/20/24 Feeling nervous, anxious, or on edge: 1 = Several days Not being able to stop or control worryin = Not at all Worrying too much about different things: 1 = Several days Trouble relaxin = Several days Being so restless that it is hard to sit still: 0 = Not at all Becoming easily annoyed or irritable: 0 = Not at all Feeling afraid as if something awful might happen: 0 = Not at all Total CHASITY-7 score (0-4 normal; 5-9 mild; 10-14 moderate; 15-21 severe): 3 Source: Developed by Drs. Maximiliano Sumner, Ekaterina Khan, Ar DelC id and colleagues, with an educational meagan from [employer]. CHASITY-7 Assessment Billing CHASITY-7 Assessment Tool: CHASITY-7 Assessment 01213 Review of Systems Const Reports as per HPI Physical exam (Primary Care) Vital Signs: Last Vital Signs Pulse 66 03/20/24 08:15 BP 180/80 H 03/20/24 08:15 Pulse Ox 98 03/20/24 08:15 BMI result Body Mass Index 22.8 Tobacco/Smoking Status: Tobacco use Status Tobacco use date assessed 03/20/24 03/20/24 08:17 Patient Tobacco Use Status Former Tobacco user 03/20/24 08:17 e-Cigarette/Vaping Use Never Used 03/20/24 08:17 PHQ-9: PHQ-9 Score PHQ-9: Total score 0 03/20/24 08:45 Depression Screening Interpretation: Negative Thrive Assessment: Date of Thrive Assessment Date Thrive assessed 03/20/24 03/20/24 08:17 Currently or been in a relationship where the following occur: I choose not to answer Const General: cooperative Orientation/consciousness: patient oriented x3 Resp Effort & Inspection: normal respiratory effort Auscultation: clear to auscultation bilaterally Cardio Rate: regular rate Rhythm: regular rhythm Heart sounds: S1 normal heart sound present, S2 normal heart sound present and Murmur heart sound present systolic Neuro General: patient oriented x3 Extrem Other: cannot lift right arm past 90 degrees without pain to anterior shoulder, + jobes, - neers, - gama Psych Appearance: grossly normal Mental Status: mental status grossly normal Speech and movement: Normal speech and movement present Affect: normal affect Attitude: cooperative Thought process: Normal thought process present Thought content: Normal thought content present Insight: Good insight present (Psych) Judgement: Good judgement present (Psych) Coding Level of Care Code Est Pt Level 3 (42207) Diagnoses Right shoulder pain M25.511 Osteoporosis M81.0 Fall W19.XXXA Additional Codes CHASITY-7 Assessment Billing - CHASITY-7 Assessment Tool: CHASITY-7 Assessment [id number] ([id number]) Assessment & Plan Assessment & Plan (1) Right shoulder pain: Code(s): M25.511 - Pain in right shoulder Category: Medical Plan: XR ordered, referred to PT (2) Osteoporosis: Code(s): M81.0 - Age-related osteoporosis without current pathological fracture Category: Medical Plan: bone density ordered (3) Fall: Code(s): W19.XXXA - Unspecified fall, initial encounter Category: Medical Plan: shoulder xr, PT Plan The patient agreed to the use of a medical record consultant for this encounter. Scribed for ANGIE Zazueta by fabrizio Alamo scribe, on 03/20/2024 at 08:45 EST. Orders: Orders XR shoulder RT min 2V Today M25.511 - Pain in right shoulder XR DEXA axial skeleton 4 Months M81.0 - Age-related osteoporosis without current pathological fracture PT Evaluation and Treatment Today M25.511 - Pain in right shoulder, W19.XXXA - Unspecified fall, initial encounter Medications: Changed From metoprolol succinate ER 75 mg (1.5 x 50 mg) PO DAILY 90 days 135 tabs 1RF To metoprolol succinate ER 100 mg PO DAILY 90 days 90 tabs 1RF
== END 2024-03-20 11:48 | disposition home or self-care (01) ==
PROVIDERS: PCP Nurse Practitioner Family; Visit Provider Nurse Practitioner Family
DX: M25.511 Pain in right shoulder (principal); M81.0 Age-related osteoporosis without current pathological fracture; W19.XXXA Unspecified fall, initial encounter

== ENCOUNTER 2024-08-22 10:26 | Outpatient (AMB) | payer MEDICARE, BC, SELFPAY ==
--- NOTE | 2024-08-22 10:28 | AM.OFFWIN_ITS ---
Intake Vital Signs 08/22/24 10:37 Height 5 ft 4 in Weight 133 lb BMI 22.8 BP 170/70 H Blood Pressure Location Lt brachial Position Sitting Pulse 70 Pulse Source Pulse Oximeter Temp 97.9 F Temp Source Oral Pulse Oximetry (%) 98 Intake Visit Reasons: EP elevated BP Patient Tobacco Use Status: Former Tobacco user Allergies adhesive tape Allergy (Unknown, Verified 08/22/24 10:37) hives amlodipine [From Norvasc] Allergy (Unknown, Verified 08/22/24 10:37) Swelling od hands/feet bacitracin [From Cortisporin] Allergy (Unknown, Verified 08/22/24 10:37) Eye irritation brompheniramine [From Dimetapp Cold-Allergy (PE)] Allergy (Unknown, Verified 08/22/24 10:37) Body Rash calcium [From DHEA] Allergy (Unknown, Verified 08/22/24 10:37) Unknown calcium carbonate [From DHEA] Allergy (Unknown, Verified 08/22/24 10:37) Unknown cefaclor Allergy (Unknown, Verified 08/22/24 10:37) Perineum rash chlorpheniramine [From Fedahist] Allergy (Unknown, Verified 08/22/24 10:37) Body Rash clindamycin Allergy (Unknown, Verified 08/22/24 10:37) GI upset/pain/vomiting devil's claw Allergy (Unknown, Verified 08/22/24 10:37) unsure reaction dexbrompheniramine [From Drixoral] Allergy (Unknown, Verified 08/22/24 10:37) Body Rash diphenhydramine [From Benadryl] Allergy (Unknown, Verified 08/22/24 10:37) Body Rash doxazosin Allergy (Unknown, Verified 08/22/24 10:37) Extreme anxiety erythromycin base Allergy (Unknown, Verified 08/22/24 10:37) Perineum rash garlic Allergy (Unknown, Verified 08/22/24 10:37) Unknown gentamicin [From Garamycin] Allergy (Unknown, Verified 08/22/24 10:37) [eye drops] Eye swelling ginkgo biloba Allergy (Unknown, Verified 08/22/24 10:37) piercing pain in head guaifenesin [From Fedahist] Allergy (Unknown, Verified 08/22/24 10:37) Body Rash hydralazine Allergy (Unknown, Verified 08/22/24 10:37) Swelling of feet/legs hydrochlorothiazide Allergy (Unknown, Verified 08/22/24 10:37) Itchy palms hydrocortisone [From Cortisporin] Allergy (Unknown, Verified 08/22/24 10:37) Eye irritation meclizine Allergy (Unknown, Verified 08/22/24 10:37) very dry mouth methylsulfonylmethane [From MSM] Allergy (Unknown, Verified 08/22/24 10:37) Itchy palms nebivolol [From Bystolic] Allergy (Unknown, Verified 08/22/24 10:37) Swelling of feet/ legs neomycin [From Cortisporin] Allergy (Unknown, Verified 08/22/24 10:37) Eye irritation nifedipine [From Procardia] Allergy (Unknown, Verified 08/22/24 10:37) Swelling of feet and legs nut - unspecified Allergy (Unknown, Verified 08/22/24 10:37) mouth sores Peanut Butter Allergy (Unknown, Verified 08/22/24 10:37) mouth sores penicillin V Allergy (Unknown, Verified 08/22/24 10:37) Body rash Penicillins Allergy (Unknown, Verified 08/22/24 10:37) body rash phenylephrine [From Dimetapp Cold-Allergy (PE)] Allergy (Unknown, Verified 08/22/24 10:37) Body Rash polymyxin B [From Cortisporin] Allergy (Unknown, Verified 08/22/24 10:37) Eye irritation prasterone (DHEA) [From DHEA] Allergy (Unknown, Verified 08/22/24 10:37) Unknown propoxyphene [From Darvon] Allergy (Unknown, Verified 08/22/24 10:37) Unknown pseudoephedrine [From Drixoral] Allergy (Unknown, Verified 08/22/24 10:37) Body Rash shellfish derived Allergy (Unknown, Verified 08/22/24 10:37) itchy body Sulfa (Sulfonamide Antibiotics) Allergy (Unknown, Verified 08/22/24 10:37) Itchy palms sulfamethoxazole [From Bactrim] Allergy (Unknown, Verified 08/22/24 10:37) itchy palms trimethoprim [From Bactrim] Allergy (Unknown, Verified 08/22/24 10:37) itchy palms prednisone Allergy (Verified 08/22/24 10:37) Flushing Carditone Allergy (Unknown, Uncoded 01/27/23 13:07) Swelling of feet/legs; itchy body Do you need a note to return to daycare/school/sports/work: No HPI HPI Comments History of Present Illness Details 79 y/o female patient who presents to [facility] walk in clinic with c/o elevated BPs at home. She does have Uncontrolled HTN and currently takes Furosemide, Lisinopril and Metoprolol. Reports some headaches and vision changes. Denies CP, Palpitations, SOB or dizziness. [facility] Medical History Fall Dyslipidemia Colonoscopy refused Osteoporosis Hypothyroid HTN (hypertension) Aortic insufficiency Osteopenia CKD (chronic kidney disease) stage 3, GFR 30-59 ml/min Mitral valve disorder Surgical History History of breast biopsy History of tubal ligation Family History Father No problems noted. Mother Pancreatic cancer Social History Housing: Condominium Patient Tobacco Use Status: Former Tobacco user Years Smoked: 50 years ago e-Cigarette/Vaping Use: Never Used Second Hand Smoke Exposure: No service: No Current occupational status: retired Cognitive needs: No Hearing needs: No Vision needs: No Review of Systems Const All systems reviewed & are unremarkable except as noted in HPI and below Physical Exam Vital Signs: Last Vital Signs Temp 97.9 F 08/22/24 10:37 Pulse 70 08/22/24 10:37 BP 170/70 H 08/22/24 10:37 Pulse Ox 98 08/22/24 10:37 BMI result Body Mass Index 22.8 Const General: cooperative and no acute distress Orientation/consciousness: patient oriented x3 Resp Effort & Inspection: normal respiratory effort and able to speak in complete sentences Auscultation: clear to auscultation bilaterally Cardio Rate: regular rate Heart sounds: S1 normal heart sound present and S2 normal heart sound present Neuro General: patient oriented x3 Assessment & Plan Assessment & Plan (1) Hypertension: Code(s): I10 - Essential (primary) hypertension Qualifiers: Hypertension type: essential hypertension Qualified Code(s): I10 - Essential (primary) hypertension Plan: Discussed the case with PCP (Juan C Perry) and agreed to increase her Metoprolol from 100 mg to 125 mg ER daily. Pt reports that she does have a full bottle of Metoprolol 50 mg ER at home (Un- , discontinued dose). We agreed that she will cut in half the 50 mg Tablet into 25 mg and take it together with the 100 mg (= 125 mg ER). She will f/u in 1 week with Nurse Navigator for BP in office BP check (Angelia sylvester). She has a F/U with PCP in September 23. Coding Level of Care Code Est Pt Level 4 (29700) Diagnoses Essential hypertension I10 Hypertension type: essential hypertension Time Spent (min) 20
[2024-08-22 10:37] VITALS: BP 170/70; PULSE 70; TEMP 36.6; O2SAT 98; BMI 22.8
--- OUTSIDE RECORDS SUMMARY | 2024-08-22 12:26 | XMS_ITS | Clinical Summary ---
Author Organization [facility] Address [address] [place] [address] [place] [address] Phone Care Team Providers Care Diet Therapist Name Role Phone Unavailable Primary Care Provider Unavailabl e Allergies Active Allergy Reactions Criticality Noted Date Comments Adhesive Tape 10/22/2020 Amlodipine 10/22/2020 Bacitracin 10/22/2020 Sulfamethoxazole-Trimethoprim Other (see comments) 10/22/2020 Penicillin G Benzathine Rash Low 10/22/2020 Brompheniramine 10/22/2020 Calcium 10/22/2020 Calcium Carbonate 10/22/2020 Cefaclor 10/22/2020 Chlorpheniramine 10/22/2020 Clindamycin Other (see comments) 10/22/2020 [id number]-[id number]-Ijyupirxa-Hc Other (see comments) 06/01/2021 Propoxyphene 10/22/2020 Dexbrompheniramine 10/22/2020 Chlorpheniramine-Dm Other (see comments) 2020 Diphenhydramine Other (see comments) 10/22/2020 Doxazosin 10/22/2020 Dexbrompheniramine-Pseudoeph Other (see comments) 06/01/2021 Erythromycin 10/22/2020 Gentamicin 10/22/2020 Garlic 10/22/2020 Ginkgo Biloba 10/22/2020 Guaifenesin 10/22/2020 Hydralazine 10/22/2020 Hydrochlorothiazide Other (see comments) 2020 Hydrocortisone 10/22/2020 Latex Other (see comments) 06/01/2021 Meclizine 10/22/2020 Methylsulfonylmethane 10/22/2020 Gkvhkjjzycurbzj-Bw-Njwf Other (see comments) Nebivolol 10/22/2020 Nebivolol Hcl Other (see comments) 06/01/2021 Neomycin 10/22/2020 Nifedipine 10/22/2020 Penicillin V 10/22/2020 Penicillins 10/22/2020 Phenylephrine 10/22/2020 Polymyxin B 10/22/2020 Prasterone 10/22/2020 Pseudoephedrine 10/22/2020 Shellfish-Derived Products Other (see comments) 06/01/2021 Sulfa Antibiotics 10/22/2020 Sulfamethoxazole 10/22/2020 Trimethoprim 10/22/2020 Medications thyroid (ARMOUR) 60 MG tablet Take 1 tablet by mouth 1 (one) time each day Active metoprolol succinate XL (TOPROL-XL) 50 MG 24 hr tablet Take 75 mg by mouth 1 (one) time each day Active lisinopril (PRINIVIL,ZESTR IL) 40 MG tablet Take 40 mg by mouth 1 (one) time each day Active furosemide (LASIX) 20 MG tablet TAKE 1 TABLET(20 MG) BY MOUTH EVERY DAY 90 tablet 1 1 Active Additional Information Patient taking differently: 30 mg, Reported on 08/08/2022 Active Problems Problem Noted Date Diagnosed Date 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 02/02/2023 02/02/2023 Acquired deformity of left foot 08/05/2021 Localized, 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 08/05/2021 Depressive disorder 10/22/2020 Anxiety state 10/22/2020 Hypothyroidism 10/22/2020 Immunizations Name Administration Dates Next Due Pfizer SARS-COV-2 03/16/2021 Family History Medical History Relation Comments Cancer Mother Relation Status Comments Father Mother Social History Tobacco Use Types Packs/Day Years Used Date Smoking Tobacco: Former Smokeless Tobacco: Never Alcohol Use Standard Drinks/Week Comments Yes 0 (1 standard drink = 0.6 oz pure alcohol) Alcoholic Drinks/day: Occasional social drink Comments Unknown Sex and Gender Information Value Date Recorded Sex Assigned at Not on file Legal Sex Female 5:06 PM EST Gender Identity Not on file Sexual Orientation Not on file Last Filed Vital Signs Vital Sign Reading Time Taken Comments Blood Pressure 128/60 03/13/2023 2:05 PM EDT Pulse 64 03/13/2023 2:05 PM EDT Temperature - - Respiratory Rate - - Oxygen Saturation 98% 03/13/2023 2:05 PM EDT Inhaled Oxygen Concentration - - Weight 53.2 kg (117 lb 3.2 oz) 03/13/2023 2:05 P M EDT Height - - Body Mass Index - - Plan of Treatment Health Maintenance Due Date Last Done Comments Pneumococcal Vaccine: 65+ Ye ars (1 of 2 - PCV) 1951 Influenza Vaccine (#1) 2024 Hepatitis B Vaccine Aged Out No longe r eligible based on patient's age to complete this topic Insurance MEDICARE [facility] [place] [id number] MEDICARE [facility]
--- OUTSIDE RECORDS SUMMARY | 2024-08-22 12:26 | XMS_ITS | Clinical Summary ---
Author Organization [facility] Address [address] [place] [phone] Phone Care Team Providers Care Microstrategy Architect Developer Name Role Phone Juan C Skelton NP Primary Care Provider Encounters Date Type Department Care Team Description 06/17/2024 10:32 AM EST - 06/17/2024 11:59 PM EST [facility] [address] [phone] Encounter for screening mammogram for breast cancer Discharge Disposition: Home or Self Care from Last 3 Months Surgical History Surgery Date Site/Laterality Comments STEREOTACTIC CORE BIOPSY 06/19/2011 - 06/18/2012 Left Family History Medical History Relation Name Comments Breast cancer Sister Relation Name Status Comments Sister Social History Tobacco Use Types Packs/Day Years Used Date Smoking Tobacco: Never Assessed Comments No Sex and Gender Information Value Date Recorded Sex Assigned at Not on file Legal Sex Female 11:51 PM EST Gender Identity Not on file Sexual Orientation Not on file Obstetrics History Last Filed Vital Signs Vital Sign Reading Time Taken Comments Blood Pressure - - Pulse - - Temperature - - Respiratory Rate - - Oxygen Saturation - - Inhaled Oxygen Concentration - - Weight 59 kg (130 lb) 06/17/2024 10:49 AM EST Height 160 cm (5' 3 ) 06/17/2024 10:49 AM EST Body Mass Index 23.03 06/17/2024 10:49 AM EST Plan of Treatment Health Maintenance Due Date Last Done Comments Zoster Vaccines (1 of 2) 1995 DTaP,Tdap,and Td Vaccines (3 - Td or Tdap) 11/12/2019 11/11/2009, 10/21/2009 RSV Immunization Patients 60 + Years Old (1 - 1-dose 75+ series) 2020 Depression Screening 05/22/2022 Falls Risk Assessment 05/22/2022 Hepatitis C Screening 05/22/2022 Medicare Annual Wellness Visit 05/22/2022 Osteoporosis Screening (Bone Density Screening) 05/22/2022 Social Influencers of Health Screening 05/22/2022 COVID-19 Vaccine (3 2023-2 5 season) 2024 03/16/2021, 09/15/2020 Influenza Vaccine (#1) 2024 Pneumococcal Vaccine: 50+ Years Completed 03/31/2022, 08/24/2010, 08/24/2010 HIB Vaccines Aged Out No longer eligi ble based on patient's age to complete this topic HPV Vaccines Aged Out No longer eligi ble based on patient's age to complete this topic Hepatitis A Vaccines Aged Out No long er eligible based on patient's age to complete this topic Hepatitis B Vaccines Aged Out No long er eligible based on patient's age to complete this topic IPV Vaccines Aged Out No longer eligi ble based on patient's age to complete this topic MMR Vaccines Aged Out No longer eligi ble based on patient's age to complete this topic Meningococcal ACWY Vaccine Aged Out N o longer eligible based on patient's age to complete this topic Meningococcal B Vacine Aged Out No lo nger eligible based on patient's age to complete this topic RSV Immunization Patients Under 20 months Aged Out No longer eligible b ased on patient's age to complete this topic Varicella Vaccines Aged Out No longer eligible based on patient's age to complete this topic Procedures Procedure Name Priority Date/Time Associated Diagnosis Comments MG MAMMO DIGITAL SCREENING W KENYON BILAT Routine 06/17/2024 10:59 AM EST Encounter for screening mammogram for breast cancer from Last 3 Months Results * MG Mammo Digital Screening w Kenyon bilat (06/17/2024 10:59 AM EST) Anatomical Region Laterality Modality Breast Bilateral Mammography 06/17/2024 11:4 7 AM EST Impressions 06/17/2024 11:53 AM EST No mammographic evidence of malignancy. A negative mammogram in the presence of a clinically suspicious palpable abnormality does not preclude the possibility of malignancy or alter the indications for biopsy. PQRI CPT II 3342F Code 08485, 65673 PQRI 225 CPT II 7025F TISSUE DENSITY: There are scattered areas of fibroglandular density. (BI-RADS category B) IMPRESSION: Benign. BI-RADS CATEGORY: 2 - BENIGN RECOMMENDATION: Screening bilateral mammogram is recommended in 1 year. Mammo Location: [facility], [address] [place] [id number] -------- FINAL REPORT -------- Dictated By: John Hernández Dictated Date: 06/17/2024 11:47 ET Assigned Physician: John Hernández Reviewed and Electronically Signed By: John Hernández Signed Date: 06/17/2024 11:53 ET Workstation ID: [id number] Transcribed By: Self Edit Transcribed Date: 06/17/2024 11:47 ET Narrative 06/17/2024 11:53 AM EST CLINICAL: The patient is a 78 years Female presenting for routine screening mammography. ??The patient underwent left breast biopsy in 2011, pathology benign. ??The patient has a family history of breast cancer involving her sister at age 55. COMPARISON: Most recently 06/16/2023 and most remotely 02/23/2017. ?? TECHNIQUE: Full-field digital mammography of the breasts bilaterally consisting of tomosynthesis in MLO and CC projection is performed in the 1d4 Ptye 2000-D unit. ??Computer aided detection utilizing the iCAD system was utilized. FINDINGS: The breasts are again seen to be composed of a combination of fatty and fibroglandular elements. ??A tissue marker is again seen laterally in the left breast. ??Scattered bilateral calcifications, including microcalcifications in the lower outer quadrant of the left breast, are without suspicious interval change. ??There is no suspicious cluster of microcalcifications, mass, or area of architectural distortion. There is no skin thickening or nipple retraction. Procedure Note John Hernández MD - 06/17/2024 CLINICAL: The patient is a 78 years Female presenting for routinescreening mammography. The patient underwent left breast biopsy in 2011,pathology benign. The patient has a family history of breast cancerinvolving her sister at age 55. COMPARISON: Most recently 06/16/2023 and most remotely 02/23/2017. TECHNIQUE: Full-field digital mammography of the breasts bilaterallyconsisting of tomosynthesis in MLO and CC projection is performed in theFastacashographe 2000-D unit. Computer aided detection utilizing the CrossFirst Bankystem was utilized. FINDINGS: The breasts are again seen to be composed of a combination offatty and fibroglandular elements. A tissue marker is again seenlaterally in the left breast. Scattered bilateral calcifications,including microcalcifications in the lower outer quadrant of the leftbreast, are without suspicious interval change. There is no suspiciouscluster of microcalcifications, mass, or area of architectural distortion.There is no skin thickening or nipple retraction. IMPRESSION: No mammographic evidence of malignancy. A negative mammogram in the presence of a clinically suspicious palpableabnormality does not preclude the possibility of malignancy or alter theindications for biopsy. PQRI CPT II 3342F Code 06926, 97983 PQRI 225 CPT II 7025F TISSUE DENSITY: There are scattered areas of fibroglandular density.(BI-RADS category B) IMPRESSION: Benign. BI-RADS CATEGORY: 2 - BENIGN RECOMMENDATION: Screening bilateral mammogram is recommended in 1 year. Mammo Location: [facility], [address] [place] [id number] -------- FINAL REPORT -------- Dictated By: John Hernández Dictated Date: 06/17/2024 11:47 ET Assigned Physician: John Hernández Reviewed and Electronically Signed By: John Hernández Signed Date: 06/17/2024 11:53 ET Workstation ID: [id number] Transcribed By: Self Edit Transcribed Date: 06/17/2024 11:47 ET us Self Referral Sppl IMG BI PROCEDURES Final Resul t from Last 3 Months Insurance MEDICARE [facility] Care Teams Microstrategy Architect Developer Relationship Specialty Start Date End Date Juan C Skelton NP PCP - General Family Medicine 05/27/24
--- OUTSIDE RECORDS SUMMARY | 2024-08-22 12:26 | XMS_ITS ---
[facility] Address [address] [place] [address] Care Team Providers Care Normalizer Name Role Phone Juan C Fuentes Primary Care Provider Unav ailable Black, Melissa Unavailable [phone] REASON FOR VISIT Painful thick toenails which are aggrevated by shoes and causes difficulty standing/walking, Ankle pain Medications Medication SIG (Take, Route, Frequency, Duration) Notes Start Date End Date Status Doxazosin Mesylate 1 MG 1/2 tablet Orall y Once a day Not-Taking Sertraline HCl 25 MG 1 tablet Orally Onc e a day Not-Taking Work Note . . . . for . 08/14/2013 Not-T aking Norvasc Not-Taking Bumetanide 0.5 MG 1 tablet Orally Once a day for 30 day(s) Not-Taking Lisinopril 40 MG 1 tablet Orally Once a day for 30 day(s) Active Lasix 20 MG 1 tablet Orally Once a day Active Work Note . . . PT was out of wo rk 08/15/13-09/20/13 due to stress fx of the right foot.Pt to return to work 09/23/13 for . 09/18/2013 Not-Taking [place] Thyroid 60 MG 1 tablet Orally Onc e a day Active Metoprolol & Diet Manage Prod 25 as directed Orally Active Social History Tobacco Use: Social History Observation Description Date Details (start date - stop date) Never Smoker NA - NA Tobacco Use/Smoking Question Answer Notes Are you a: nonsmoker Additional Findings: Tobacco Non-User Current no n-smoker Alcohol Screen Question Answer Notes Did you have a drink containing alcohol in the p ast year? No Points 0 Interpretation Negative Tobacco use other than smoking: Question Answer Notes Are you an other tobacco user? No Vital Signs Height 5 ft 3 in in 01/03/2024 Weight 128 lbs 01/03/2024 BMI 22.67 kg/m2 01/03/2024 Procedures Procedure Date Ordered Date Performed Result Body Sit e 19640-OXEYNTT NAIL, 1-01/03/2024 N/A Encounters Encounter Location Date Provider Diagnosis [facility] [address] [facility] [place] [address] 01/03/2024 Melissa Pete Sprain of anterior talofibular ligament of left ankle, initial encounter S93.492A ; Tinea unguium B35.1 ; Pain in right toe(s) M79.674 ; Pain in left toe(s) M79.675 ; Pain in left foot M79.672 ; Peroneal tendinitis of left lower extremity M76.72 and Acute left ankle pain M25.572 Assessments Encounter Date Diagnosis (ICD Code) Assessment Notes Treatment Notes Treatment Clinical Notes Section Notes 01/03/2024 Sprain of anterior talofibular ligament of left ankle, initial encounter (ICD-10 - S93.492A) Response to treatment - Improvement 01/03/2024 Tinea unguium (ICD-10 - B35.1) 01/03/2024 Pain in right toe(s) (ICD-10 - M79.674) 01/03/2024 Pain in left toe(s) (ICD-10 - M79.675) 01/03/2024 Pain in left foot (ICD-10 - M79.672) 01/03/2024 Peroneal tendinitis of left lower extremity (ICD-10 - M76.72) Response to treatment - Improvement 01/03/2024 Acute left ankle pain (ICD-10 - M25.572) Plan Of Treatment Pending Test Test Name Order Date [id number]-[id number] NAIL, -01/03/2024 Next Appt Details Follow Up: prn, Reason: Provider Name:Melissa Pete , 08/27/2024 01:00:00 PM, [address] [place] [address] [place], [place], [phone], Procedure Notes * Category Sub-Category Detail Notes Debride Nails 1-5 Procedure: Nail debrideme nt performed extensively to reduce/remove overall nail length and girth, subungual debris, and necrotic tissue, by manual and electrical means by use of a nail nipper and/or dremel, to more viable healthy nail plate or bed tissue 1-5. Silver nitrate used for any petechial bleeding as necessary. Patient chooses,to cont. vicks vapor [id number]) Progress Notes * Naomy BLACK LDOB:1945 (78 yo F)Acc No.[id number]:01/03/2024 Progress Note Patient:?Naomy Black L Provider:?Melissa Pete DPM :1945???Age:78 Y???Sex:Female D ate:01/03/2024 Address:[address] [place], [place] [id number] Pcp:BINH Zazueta Subjective: * Chief Complaints: * ???Painful thick toenails wh ich are aggrevated by shoes and causes difficulty standing/walkingAnkle pain * HPI: ???Painful Nails:?Pt States Last PCP Visit:?Date:?09/20/2023 ???Ankle Pain:?Nature:?aching.?Location:?Left ankle.?Duration: ?, several months.?Onset/Cause:?twisted ankle when gardening.?Course:?, improved at 90 percent.?Aggrevated by:?standing , walking.?Treatments:?rest/alter normal daily activity , ankle brace/support , change in shoes,topical medication.?Severity/Quality:?moderate.? * ROS:?General/Constitutional:?Nausea?denies.?Vomiting?denies.?Hunger Thirst?denies.?Loss appetite?denies.?Chills?denies.?Fatigue?denies.?Fever?denies.?Night Sweats?denies.?Unexplained weight loss?denies.?Ophthalmologic:?Blurred vision?denies.?Red eye?denies.?HEENTM:?Dentures?denies.?Dizziness?denies.?Glasses/contacts?admits.?Retinopathy?de nies.?Blurred/double vision?denies.?TMJ?denies.?Discharge/drainage?denies.?Implants?denies.?Hard of hearing denies.?Difficulty chewing/swallowing/speaking?denies.?Nose bleeds?denies.?Sore mouth?denies.?Swollen glands?denies.?Respiratory:?On Oxygen?denies.?Pneumonia/pleurisy?denies.?Bronchitis?denies.?Emphysema?denies.?C oughing?denies.?Cough blood?denies.?Shortness of breath?denies.?Wheezing?denies.?Cardiovascular:?Pacemaker?denies.?MVP?denies.?WPW?denies.?CHF?denies.?Heart attack?denies.?Septal defect?denies.?Rapid beat?denies.?Chest pain ?denies.?Atrial Fib.?denies.?Murmur/Palpitations?denies.?Gastrointestinal:?Hemorrhoids?denies.?Stomach/Abdominal pain?denies.?Dark blood stool?denies.?Irritable bowel ?denies.?Constipation?denies.?Diarrhea?denies.?Vomiting?denies.?Hematology:?Swelling?admits.?Bruising?denies.?Bleeding problem?denies.?Genitourinary:?Blood urine?denies.?Frequent/Painfu/urination/bladder control?denies.?Kidney stones?denies.?Infection (UTI)?denies.?Nephropathy?denies.?Musculoskeletal:?Hammertoes?denies.?Bunions?denies.?Scoliosis/kyphosis?denies.?Muscle cramps / walking?denies.?Generalized aches and pains?denies.?Weakness?denies.?Integ.:?[place]o?denies.?Scars?denies.?Corns/calluses?denies.?Ingrown nails?admits.?Painful nails?admits.?Rashes?denies.?Neurologic:?Difficulty sleeping?denies.?Bipolar?denies.?Brain disorder?denies.?Balance trouble?denies.?Confusion?denies.?Fainting/blackouts?denies.?Headache?denies.?Tr emors?denies.? * Medical History:? * Surgical History:?appendecto my inguinal hernia repair tubal ligation Cataract sx 04/2022 * Hospitalization/Major Diagno stic Procedure:?No Hospitalization History. * Family History:?Mother: dece ased, diagnosed with Family history of arthritis, Unspecified essential hypertension, Other malignant neoplasm of unspecified site.?Father: .?Siblings: blood pressure.? * Social History:?Tobacco Use:?Tobacco Use/Smoking?Are you a:?nonsmoker ?Additional Findings: Tobacco Non-User?Current non-smoker ?Tobacco use other than smoking?Are you an other tobacco user??No ???Drugs/Alcohol:?Drugs?Have you used drugs other than those for medical reasons in the past 12 months? No.?Alcohol Screen?Did you have a drink containing alcohol in the past year??No ?Points?0 ?Interpretation?Negative ???Miscellaneous:?no Caffeine. ?Exercise: yes, gym, exercise/dancing. ?Marital status: single. ?Occupation: retired. * Medications:?TakingLasix 20 MG Tablet 1 tablet Orally Once a dayLisinopril 40 MG Tablet 1 tablet Orally Once a dayMetoprolol & Diet Manage Prod 25 Miscellaneous as directed Orally [place] Thyroid 60 MG Tablet 1 tablet Orally Once a dayTaking Lasix 20 MG Tablet 1 tablet Orally Once a dayTaking Lisinopril 40 MG Tablet 1 tablet Orally Once a dayTaking Metoprolol & Diet Manage Prod 25 Miscellaneous as directed Orally Taking [place] Thyroid 60 MG Tablet 1 tablet Orally Once a dayNot-Taking/PRNWork Note . . . . PT was out of work 08/15/13-09/20/13 due to stress fx of the right foot.Pt to return to work 09/23/13Work Note . . . . .Bumetanide 0.5 MG Tablet 1 tablet Orally Once a dayNorvasc Sertraline HCl 25 MG Tablet 1 tablet Orally Once a dayDoxazosin Mesylate 1 MG Tablet 1/2 tablet Orally Once a dayMedication List reviewed and reconciled with the patientNot-Taking/PRN Work Note . . . . PT was out of work 08/15/13-09/20/13 due to stress fx of the right foot.Pt to return to work 09/23/13Not-Taking/PRN Work Note . . . . .Not-Taking/PRN Bumetanide 0.5 MG Tablet 1 tablet Orally Once a dayNot- Taking/PRN Norvasc Not-Taking/PRN Sertraline HCl 25 MG Tablet 1 tablet Orally Once a dayNot-Taking/PRN Doxazosin Mesylate 1 MG Tablet 1/2 tablet Orally Once a dayMedication List reviewed and reconciled with the patient * Allergies:?BenadrylDimetapp MultiSymptom Cold/FluDimetapp Long Act Cough/ColdDrixoral Cold/AllergyClindamycin HCl - Onset Date 12/28/2018BactrimHydrochlorothiazideGaramycinCortisporinNorvascBystolicHydrALAZIN E HClProcardia XLDoxazosin MesylateShellfish-derived ProductsErythromycinLatexPrednisone: facial flushingPenicillinAdhesiveyes[Allergies Verified] Objective: * Vitals:?Ht: 5 ft 3 in, Wt: 1 28, BMI:22.67, Shoe size: 9w. * Examination: ???Orthopedic: ?MUSCLE STRENGTH:?5/5 all groups in a symmetrical fashion, B/L.?GAIT ABNORMALITY:?antalgic.?FOOT MORPHOLOGY:?Pes Cavus structure , B/L , Decreased Ankle joint dorsiflexion ROM, knee extended , Decreased Ankle joint dorsiflexion ROM, knee flexed.?TAILOR'S BUNION:?Enlarged, painful, prominent, inflamed 5th Metatarsal Base , LEFT.?DIGITAL DEFORMITIES:?Digital contracture, PIPJ, 2-5 B/L, incompl-reducible with WB, or to push-up test, no over, nor underlapping.?ANKLE PAIN LOCATED:?LEFT , (- ) swelling , NO?Pain on palpation to , ATFL , minor POP?Peroneal tendons left,.?Vascular: ?DP PULSES:?3/4, B/L.?PT PULSES:?3/4, B/L.?Nails: ?NAILS are:?elongated,overgrown,dystrophic,greater than 3mm thick,discolored and friable with crumbly malodorous subungual debris, with pain on palpation, T5 , TA.? Assessment: * Assessment: 1.?Tinea unguium - B35.1?2.? Sprain of anterior talofibular ligament of left ankle, initial encounter - S93.492A (Primary), Response to treatment - Improvement?3.?Pain in right toe(s) - M79.674?4.?Pain in left toe(s) - M79.675?5.?Pain in left foot - M79.672?6.?Peroneal tendinitis of left lower extremity - M76.72, Response to treatment - Improvement?7.?Acute left ankle pain - M25.572? Plan: * Treatment: * Procedures:?Debride Nails 1-5:?Procedure:?Nail debridement performed extensively to reduce/remove overall nail length and girth, subungual debris, and necrotic tissue, by manual and electrical means by use of a nail nipper and/or dremel, to more viable healthy nail plate or bed tissue 1-5. Silver nitrate used for any petechial bleeding as necessary. Patient chooses,to cont. vicks vapor [id number]).? * Procedure Codes:?35520 PABLO CASTILLO, 1-5, Modifiers: XS * Preventive Medicine:? ??Counseling:?Discussion:?-12: Office or other outpatient visit for the evaluation and management of an established patient, which required a medically appropriate history and/or examination and STRAIGHTFORWARD level of MEDICAL DECISION MAKING, 1 SELF-LIMITED OR MINOR PROBLEM, MINIMAL- NO AMOUNT/COMPLEXITY OF DATA TO BE REVIEWED/ANALYZED, AND MINIMAL RISK OF COMPLICATION/MORBIDITY. The visit on the day of the encounter encompassed interpreting the data and educating the patient as to the nature of their condition, treatment options available according to their individual PMH, meds, allergies, and overall health/living conditions, as well as any potential risks or complications that may occur from a failure to adhere to, and participate in, the recommended course of therapy. The discussion included a complete verbal, and/or written explanation of the examination results, any x-rays taken, the proposed diagnosis, and outline of the treatment plan. A schedule for future care needs was also explained. The patient verbalized an understanding of the instructions at this time and agreed to be an active participant in their treatment. If the patient should think of any questions or concerns after the visit, I have encouraged the patient to call the office, Given recent successful results to treatment, The patient wishes to continue with the present treatment plan for their condition.? * Follow Up:?prn * Images: * Sign off status: Completed true * Provider:?Melissa Pete DPM Date:?2023 Generated for Girish ross/Milly/Deborah on:?08/22/2024 12:26 PM EST History and Physical Notes * HPI (History of Present Illness) Category Sub-Category Detail Notes Category Not es Ankle Pain Duration: , several months Nature: aching Severity/Quality: moderate Treatments: rest/alter normal da jil activity , ankle brace/support , change in shoes,topical medication Course: , improved at 90 per cent Location: Left ankle Onset/Cause: twisted ankle when g ardening Aggravated by: standing , walking Painful Nails Pt States Last PCP Visit: Date:: 09/20/2023 Examination Category Sub-Category Detail Notes Category Not es Neurological SENSORY: Orthopedic GAIT ABNORMALITY: antalgic FOOT MORPHOLOGY: Pes Cavus structure , B/L , Decreased Ankle joint dorsiflexion ROM, knee extended , Decreased Ankle joint dorsiflexion ROM, knee flexed ANKLE PAIN LOCATED: LEFT , (- ) swelling , NO Pain on palpation to , ATFL , minor POP Peroneal tendons left, DIGITAL DEFORMITIES: Digital contracture , PIPJ, 2-5 B/L, incompl-reducible with WB, or to push-up test, no over, nor underlapping TAILOR'S BUNION: Enlarged, painful, p rominent, inflamed 5th Metatarsal Base , LEFT MUSCLE STRENGTH: 5/5 all groups in a symmetrical fashion, B/L Vascular DP PULSES (B): 3/4, B/L PT PULSES (B): 3/4, B/L Nails NAILS are: elongated,overgr own,dystrophic,greater than 3mm thick,discolored and friable with crumbly malodorous subungual debris, with pain on palpation, T5 , TA
--- OUTSIDE RECORDS SUMMARY | 2024-08-22 12:26 | XMS_ITS ---
Author Organization [facility] Address [address] [place] [address] Care Team Providers Care Package Winder Name Role Phone Juan C Fuentes Primary Care Provider Unav ailable Black, Melissa Unavailable [phone] Results Component Value Reference Range Notes X ray : Ankle, left 2V Reviewed date:09/13/2023 01:02:37 PM Interpretation:See Examination above Performing Lab: Notes/Report: See Examination above X ray : Foot, left 2V Reviewed date:09/13/2023 01:02:25 PM Interpretation:See Examination above Performing Lab: Notes/Report: See Examination above REASON FOR VISIT Painful thick toenails which are aggrevated by shoes and causes difficulty standing/walking, Foot/Leg pain, Ankle pain Medications Medication SIG (Take, Route, Frequency, Duration) Notes Start Date End Date Status Norvasc Not-Taking Bumetanide 0.5 MG 1 tablet Orally Once a day for 30 day(s) Not-Taking Sertraline HCl 25 MG 1 tablet Orally Onc e a day Not-Taking Work Note . . . . for . 08/14/2013 Not-T aking Work Note . . . PT was out of wo rk 08/15/13-09/20/13 due to stress fx of the right foot.Pt to return to work 09/23/13 for . 09/18/2013 Not-Taking Doxazosin Mesylate 1 MG 1/2 tablet Orall y Once a day Not-Taking Lisinopril 40 MG 1 tablet Orally Once a day for 30 day(s) Active Lasix 20 MG 1 tablet Orally Once a day Active [place] Thyroid 60 MG 1 tablet Orally Onc [...] Signs Height 5 ft 3 in in 09/13/2023 Weight 125 lbs 09/13/2023 BMI 22.14 kg/m2 09/13/2023 Procedures Procedure Date Ordered Date Performed Result Body Sit e 50206-RKJSDHL NAIL, 1-5 09/13/2023 N/A Encounters Encounter Location Date Provider Diagnosis [facility] [address] 09/13/2023 Melissa Black Muscle cramp, nocturnal R25.2 ; Sprain of anterior talofibular ligament of left ankle, initial encounter S93.492A ; Tinea unguium B35.1 ; Pain in right toe(s) M79.674 ; Pain in left toe(s) M79.675 ; Pain in left foot M79.672 ; Peroneal tendinitis of left lower extremity M76.72 and Acute left ankle pain M25.572 Assessments Encounter Date Diagnosis (ICD Code) Assessment Notes Treatment Notes Treatment Clinical Notes Section Notes 09/13/2023 Muscle cramp, nocturnal (ICD-10 - R25.2) Response to treatment - Improvement 09/13/2023 Sprain of anterior talofibular ligament of left ankle, initial encounter (ICD-10 - S93.492A) Dx New problem, Prognosis Uncertain (4),Acute problem, Complicated w/ Multiple Tx Options(4) 09/13/2023 Tinea unguium (ICD-10 - B35.1) 09/13/2023 Pain in right toe(s) (ICD-10 - M79.674) 09/13/2023 Pain in left toe(s) (ICD-10 - M79.675) 09/13/2023 Pain in left foot (ICD-10 - M79.672) 09/13/2023 Peroneal tendinitis of left lower extremity (ICD-10 - M76.72) Dx New problem, Prognosis Uncertain (4),Acute problem, Complicated w/ Multiple Tx Options(4) Patient Educated with: PERONEAL TENDON INJURY REHAB. EXERCISES.pdf (PERONEAL TENDON INJURY REHAB. EXERCISES.pdf) 09/13/2023 Acute left ankle pain (ICD-10 - M25.572) Plan Of Treatment Treatment Notes Assessment Notes Peroneal tendinitis of left lower extrem ity Patient Educated with: PERONEAL TENDON INJURY REHAB. EXERCISES.pdf (PERONEAL TENDON INJURY REHAB. EXERCISES.pdf) Pending Test Test Name Order Date [id number] NAIL, 1-5 09/13/2023 Next Appt Details Follow Up: 4 Weeks, Reason: Provider Name:Melissa Pete , 08/27/2024 01:00:00 PM, [address] [facility], [place], [address], Procedure Notes * Category Sub-Category Detail Notes [...] as necessary. Patient chooses,to cont. vicks vapor [id number]) Progress Notes * Naomy BLACK LDOB:1945 (78 yo F)Acc No.[id number]:09/13/2023 Progress Note Patient:?Naomy Black Provider:?Melissa Pete DPM :1945???Age:78 Y???Sex:Female D ate:09/13/2023 Address: [address], [facility] Pcp:BINH Zazueta Subjective: * Chief Complaints: * ???Painful thick toenails wh ich are aggrevated by shoes and causes difficulty standing/walkingFoot/Leg painAnkle pain * HPI: ???Painful Nails:?Pt States Last PCP Visit:?Date:?09/27/2022 ???Foot Pain:?Nature:?tightness, cramping, pulling, aching.?Location:?Foot, Leg , B/L.?Duration:?several weeks.?Onset:?sudden.?Course:?improved , at _90 %.?Aggrevated:?especially toward the end of the day/at rest/at night.?Ankle Pain:?Nature:?aching.?Location:?Left ankle.?Duration: ?several weeks (3).?Onset/Cause:?twisted ankle when gardening.?Course:?worse.?Aggrevated by:?standing , walking.?Treatments:?rest/alter normal daily activity , ankle brace/support.?Severity/Quality:?moderate.? * ROS:?General/Constitutional:?Nausea?denies.?Vomiting?denies.?Hunger Thirst?denies.?Loss appetite?denies.?Chills?denies.?Fatigue?denies.?Fever?denies.?Night Sweats?denies.?Unexplained weight loss?denies.?Ophthalmologic:?Blurred [...] Manage Prod 25 Miscellaneous as directed Orally [place] Thyroid 60 MG Tablet 1 tablet Orally Once a dayTaking Lasix 20 MG Tablet 1 tablet Orally Once a dayTaking Lisinopril 40 MG Tablet 1 tablet Orally Once a dayTaking Metoprolol & Diet Manage Prod 25 Miscellaneous as directed Orally Taking [place] Thyroid 60 MG Tablet 1 tablet Orally [...] Vitals:?Ht: 5 ft 3 in, Wt: 1 25, BMI:22.14, Shoe size: 9w. * Examination: ???General Examination: ?GENERAL APPEARANCE:?Reveals a pleasant, alert, well nourished, well developed, well hydrated individual, who demonstrates proper attention to hygene/body habitus, and is in no acute distress.?ORIENTED:?person, place, and time.?Orthopedic: ?MUSCLE STRENGTH:?5/5 all groups in a symmetrical fashion, B/L.?GAIT ABNORMALITY:?antalgic.?FOOT MORPHOLOGY:?Pes Cavus structure , B/L , Decreased Ankle joint dorsiflexion ROM, knee extended , Decreased Ankle joint dorsiflexion ROM, knee flexed.?TAILOR'S BUNION:?Enlarged, painful, prominent, inflamed 5th Metatarsal Base , LEFT.?DIGITAL DEFORMITIES:?Digital contracture, PIPJ, 2-5 B/L, incompl-reducible with WB, or to push-up test, no over, nor underlapping.?ANKLE PAIN LOCATED:?LEFT , ( + ) swelling , Pain on palpation to , ATFL , Peroneal tendons left,.?Neurological: ?SENSORY:?Neurological exam reveals intact sensorium, pain sensation normal, vibration sensation intact, pinprick sensation is normal in the lower extremities, Pt denies, anesthesia, burning, paresthesia, tingling, B/L.?Vascular: ?DP PULSES:?3/4, B/L.?PT PULSES:?3/4, B/L.?Nails: ?NAILS are:?elongated,overgrown,dystrophic,greater than 3mm thick,discolored and friable with crumbly malodorous subungual debris, with pain on palpation, T5 , TA.?X-Rays - IMAGING REPORT: ?Clinical Indication(s):?Evaluate for Fracture , Evaluate Biomechanical Deformity.?Views:?2 views of Ankle , 2 views of Foot , LEFT.?Findings:?increase in soft tissue contour and density at the symptomatic site , radiolucent soft tissue gas absent , asymmetrical Ankle joint space narrowing , medial gutter , lateral gutter , hypertrophy of 5th MT Base/Styloid process.?Digits:?show asymmetrical joint space narrowing at the PIPJ consistent with clinical finding of hammertoe deformity, show enlarged/hypertrophied phalangeal head(s) consistent for clinical finding of hammertoe deformity.?Fracture:?Negative fractures identified.? Assessment: * Assessment: 1.?Sprain of anterior talofi bular ligament of left ankle, initial encounter - S93.492A (Primary), Dx New problem, Prognosis Uncertain (4),Acute problem, Complicated w/ Multiple Tx Options(4) 2.?Muscle cramp, nocturnal - R25.2, Response to treatment - Improvement?3.?Tinea unguium - B35.1?4.?Pain in right toe(s) - M79.674?5.?Pain in left toe(s) - M79.675?6.?Pain in left foot - M79.672?7.?Peroneal tendinitis of left lower extremity - M76.72, Dx New problem, Prognosis Uncertain (4),Acute problem, Complicated w/ Multiple Tx Options(4)?8.?Acute left ankle pain - M25.572? Plan: * Treatment: 2.?Pain in left foot?Imaging: X ray : Foot, left 2V?See Examination above 3.?Peroneal tendinitis of le ft lower extremity? Notes: Patient Educated with: PERONEAL TENDON INJURY REHAB. EXERCISES.pdf (PERONEAL TENDON INJURY REHAB. EXERCISES.pdf)?? 4.?Acute left ankle pain?Imaging: X ray : Ankle, left 2V?See Examination above * Procedures:?Debride Nails 1-5:?Procedure:?Nail debridement performed extensively to reduce/remove overall nail length and girth, subungual debris, and necrotic tissue, by manual and electrical means by use of a nail nipper and/or dremel, to more viable healthy nail plate or bed tissue 1-5. Silver nitrate used for any petechial bleeding as necessary. Patient chooses,to cont. vicks vapor [id number]).? * Procedure Codes:?28969 PABLO CASTILLO, 1-5, Modifiers: XS 79688 X-RAY EXAM OF LEFT ANKLE 2V, Modifiers: 26 , [id number] X-RAY EXAM OF LEFT FOOT 2V, Modifiers: 26 , LT * Preventive Medicine:? ??Counseling:?Discussion:?-14: Office or other outpatient visit for the evaluation and management of an established patient, which required a medically appropriate history and/or examination and MODERATE level of DECISION MAKING for: 1 OR MORE CHRONIC PROBLEM(S) THATS WORSENING, 2 STABLE CHRONIC PROBLEMS, A NEWLY DIAGNOSED PROBLEM WITH UNCERTAIN PROGNOSIS, AN ACUTE COMPLICATED INJURY WITH MULTIPLE TREATMENT OPTIONS, OR AN ACUTE PROBLEM WITH ACCOMPANYING SYSTEMIC SYMPTOMS, THAT POSE(S) A MODERATE RISK OF MORBIDITY. THIS CONDITION MAY ALSO INCLUDE RX DRUG MANAGEMENT, OR A DECISON FOR MINOR SURGERY. The visit on the day of the [...] have encouraged the patient to call the office.?F/u Visit:?The Pt. was counseled on the remaining treatment options for the night crampsand importance of adherence to recomm; the Pt wishes to continue present protochol longer, Given recent successful results to treatment,.?P.R.I.C.E.:?The patient was counseled on the use of P.R.I.C.E. and NSAIDS (if well tolerated) to aid in the recovery from their painful condition, Compression dressing with erickson bandage is applied today, Recommended Topical analgesics including Aspercream/Biofreeze/Voltaren gel as directed, Discussed and reviewed the X-rays with the patient. We discussed how the findings relate to the patients symptoms/complaints. Answered any and all questions., Tendonitis: I explained to the patient the etiology and treatment options including: Rest, Ice, NSAIDs only if well tolerated after meals, New/supportive Shoegear, Strappings and Tapings, Stretching exercises, Deep Tissue Massage, OTC inserts, Custom Orthoses, Night splints, Physical Therapy, Recommended Topical analgesics including Biofreeze/Aspercream/Voltaren gel.? * Follow Up:?4 Weeks * Images: * Sign off status: Completed true * Provider:?Melissa Pete DPM Date:?2023 Generated for Yolandei vandana/Milly/eTransmitting on:?08/22/2024 12:26 PM EST History and Physical Notes * HPI (History of Present Illness) Category Sub-Category Detail Notes Category Not es Ankle Pain Duration: several weeks (3) Nature: aching Severity/Quality: moderate Treatments: rest/alter normal da jil activity , ankle brace/support Course: worse Location: Left ankle Onset/Cause: twisted ankle when g ardening Aggravated by: standing , walking Painful Nails Pt States Last PCP Visit: Date:: 09/27/2022 Foot Pain Nature: tightness, cramping, pulling , aching Location: Foot, Leg , B/L Duration: several weeks Onset: sudden Course: improved , at _90 % Aggravated: especially toward th e end of the day/at rest/at night Examination Category Sub-Category Detail Notes Category Not es Neurological SENSORY: Neurological exa m reveals intact sensorium, pain sensation normal, vibration sensation intact, pinprick sensation is normal in the lower extremities, Pt denies, anesthesia, burning, paresthesia, tingling, B/L Orthopedic GAIT ABNORMALITY: antalgic FOOT MORPHOLOGY: Pes Cavus structure , B/L , Decreased Ankle joint dorsiflexion ROM, knee extended , Decreased Ankle joint dorsiflexion ROM, knee flexed ANKLE PAIN LOCATED: LEFT , ( + ) swellin g , Pain on palpation to , ATFL , Peroneal tendons left, DIGITAL DEFORMITIES: Digital contracture , PIPJ, 2-5 B/L, incompl-reducible with WB, or to push-up test, no over, nor underlapping TAILOR'S BUNION: Enlarged, painful, p rominent, inflamed 5th Metatarsal Base , LEFT MUSCLE STRENGTH: 5/5 all groups in a symmetrical fashion, B/L General Examination GENERAL APPEARANCE: Reveals a pleasant, alert, well nourished, well developed, well hydrated individual, who demonstrates proper attention to hygene/body habitus, and is in no acute distress ORIENTED: person, place, and t srikanth Vascular DP PULSES (B): 3/4, B/L PT PULSES (B): 3/4, B/L Nails NAILS are: elongated,overgr own,dystrophic,greater than 3mm thick,discolored and friable with crumbly malodorous subungual debris, with pain on palpation, T5 , TA X-Rays - IMAGING REPORT Findings: increase in soft tissue cont our and density at the symptomatic site , radiolucent soft tissue gas absent , asymmetrical Ankle joint space narrowing , medial gutter , lateral gutter , hypertrophy of 5th MT Base/Styloid process Fracture: Negative fractures i dentified Digits: show asymmetrical montserrat int space narrowing at the PIPJ consistent with clinical finding of hammertoe deformity, show enlarged/hypertrophied phalangeal head(s) consistent for clinical finding of hammertoe deformity Views: 2 views of Ankle , 2 views of Foot , LEFT Clinical Indication(s): Evaluate for Fra cture , Evaluate Biomechanical Deformity
--- OUTSIDE RECORDS SUMMARY | 2024-08-22 12:27 | XMS_ITS | Patient Health Record ---
Author [facility] Address [address] [facility] [place] [address] Care Team Providers Care Heating Engineer Name Role Phone Juan C Fuentes Primary Care Provider Unav ailable Melissa Pete Unavailable [phone] Results Component Value Reference Range Notes X ray : Ankle, left 2V Reviewed date:09/13/2023 01:02:37 PM Interpretation:See Examination above Performing Lab: Notes/Report: See Examination above X ray : Foot, left 2V Reviewed date:09/13/2023 01:02:25 PM Interpretation:See Examination above Performing Lab: Notes/Report: See Examination above Reason For Referral No Information Medications Medication SIG (Take, Route, Frequency, Duration) Notes Start Date End Date Status Work Note . . . PT was out of wo rk 08/15/13-09/20/13 due to stress fx of the right foot.Pt to return to work 09/23/13 for . 09/18/2013 Not-Taking Work Note . . . . for . 08/14/2013 Not-T aking Metoprolol & Diet Manage Prod 25 as directed Orally Active [place] Thyroid 60 MG 1 tablet Orally Onc e a day Active Sertraline HCl 25 MG 1 tablet Orally Onc e a day Not-Taking Doxazosin Mesylate 1 MG 1/2 tablet Orall y Once a day Not-Taking Bumetanide 0.5 MG 1 tablet Orally Once a day for 30 day(s) Not-Taking Norvasc Not-Taking Lasix 20 MG 1 tablet Orally Once a day Active Lisinopril 40 MG 1 tablet Orally Once a day for 30 day(s) Active Immunizations Vaccine Route Administration Date Status Comme nts COVID-19 Pfizer BioNTech Vaccine Unknown 03/16/2021 Administered will bring card in with other dates Influenza Unknown 04/23/2018 Refused Social History Tobacco Use: Social History Observation [...] Are you an other tobacco user? No Problems Problem Type SNOMED Code ICD Code Onset Dates Problem Status W/U Status Risk Notes Problem Localized, primary osteoarthritis of the ankle and/or foot (725517386) Primary osteoarthritis, 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 confirmed Problem Ulcer of foot (93066445) Non-pressure chronic ulcer of other part of left foot limited to breakdown of skin (L97.521) Active confirmed Problem Acquired deformity of left foot (5087020463965998 4) 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) Active confirmed Vital Signs Blood pressure diastolic 70 mm Hg 04/24/2024 Height 5 ft 3 in in 04/24/2024 Blood pressure systolic 130 mm Hg 04/24/2024 Weight 128 lbs 04/24/2024 BMI 22.67 kg/m2 04/24/2024 Procedures Procedure Date Ordered Date Performed Result Body Sit e 42071-QPPXZTA NAIL, 1-5 09/13/2023 N/A 49088-YUIYMHE NAIL, 1-5 01/03/2024 N/A Encounters Encounter Location Date [facility] [address] 09/13/2023 Melissa Black Muscle cramp, nocturnal R25.2 ; Sprain of anterior talofibular ligament of left ankle, initial encounter S93.492A ; Tinea unguium B35.1 ; Pain in right toe(s) M79.674 ; Pain in left toe(s) M79.675 ; Pain in left foot M79.672 ; Peroneal tendinitis of left lower extremity M76.72 and Acute left ankle pain M25.[address] [facility] [address] 01/03/2024 Melissa Black Sprain of anterior talofibular ligament of left ankle, initial encounter S93.492A ; Tinea unguium B35.1 ; Pain in right toe(s) M79.674 ; Pain in left toe(s) M79.675 ; Pain in left foot M79.672 ; Peroneal tendinitis of left lower extremity M76.72 and Acute left ankle pain M25.572 [facility] [place] [address] [facility] [place] [address] 04/24/2024 Melissa Black Tinea unguium B35.1 ; Pain in right toe(s) M79.674 ; Pain in left toe(s) M79.675 ; Pain in left foot M79.672 and Peroneal tendinitis of left lower extremity M76.72 Assessments Encounter Date Diagnosis (ICD Code) Assessment Notes Treatment Notes Treatment Clinical Notes Section Notes 09/13/2023 Sprain of anterior talofibular ligament of left ankle, initial encounter (ICD-10 - S93.492A) Dx New problem, Prognosis Uncertain (4),Acute problem, Complicated w/ Multiple Tx Options(4) 09/13/2023 Muscle cramp, nocturnal (ICD-10 - R25.2) Response to treatment - Improvement 01/03/2024 Tinea unguium (ICD-10 - B35.1) 01/03/2024 Sprain of anterior talofibular ligament of left ankle, initial encounter (ICD-10 - S93.492A) Response to treatment - Improvement 04/24/2024 Tinea unguium (ICD-10 - B35.1) 04/24/2024 Pain in right toe(s) (ICD-10 - M79.674) 04/24/2024 Pain in left toe(s) (ICD-10 - M79.675) 09/13/2023 Tinea unguium (ICD-10 - B35.1) 01/03/2024 Pain in right toe(s) (ICD-10 - M79.674) 01/03/2024 Pain in left toe(s) (ICD-10 - M79.675) 09/13/2023 Pain in right toe(s) (ICD-10 - M79.674) 04/24/2024 Pain in left foot (ICD-10 - M79.672) 04/24/2024 Peroneal tendinitis of left lower extremity (ICD-10 - M76.72) Response to treatment - cont. Improvement 09/13/2023 Pain in left toe(s) (ICD-10 - M79.675) 01/03/2024 Pain in left foot (ICD-10 - M79.672) 01/03/2024 Peroneal tendinitis of left lower extremity (ICD-10 - M76.72) Response to treatment - Improvement 09/13/2023 Pain in left foot (ICD-10 - M79.672) 09/13/2023 Peroneal tendinitis of left lower extremity (ICD-10 - M76.72) Dx New problem, Prognosis Uncertain (4),Acute problem, Complicated w/ Multiple Tx Options(4) Patient Educated with: PERONEAL TENDON INJURY REHAB. EXERCISES.pdf (PERONEAL TENDON INJURY REHAB. EXERCISES.pdf) 01/03/2024 Acute left ankle pain (ICD-10 - M25.572) 09/13/2023 Acute left ankle pain (ICD-10 - M25.572) Plan Of Treatment Pending Test Test Name Order Date X ray : Foot, right 2V 09/18/2013 Tc99 3 phase Bone Scan 08/08/2013 X ray : Foot, left 3V 03/22/2022 17481-AHYXVUE NAIL, 1-5 05/17/2022 98525-DQPMPMT NAIL, -09/13/2022 17066-UJUOSVY NAIL, -01/10/2023 41269-GWCMGJN NAIL, -5 05/03/2023 54061-EMTCAIS NAIL, -5 09/13/2023 17374-BVLJGWY NAIL, -5 01/03/2024 03552-FCFOLCB NAIL, -5 02/23/2021 31879-PTFRGAJ NAIL, -5 06/01/2021 80514-GJKKEWE NAIL, -5 09/08/2021 33803-XVXERQQ NAIL, -5 04/05/2019 75192-XWMHGIA NAIL, -07/10/2019 00748-VGFLFLX NAIL, 06-2311/05/2019 40812-XNTVBSD NAIL, 06-2302/07/2020 21338-ZPXUHSC NAIL, 06-2305/08/2020 50154-ZUIQZOS NAIL, 06-2308/14/2020 23591-SMZNYTL NAIL, 06-2311/18/2020 04997-FSYAICV NAIL, 06-2310/10/2014 32621-FXFARTO NAIL, 06-2304/14/2015 00571-UFFENQE NAIL, 06-2308/13/2015 04684-AJPKTDF NAIL, 06-2312/10/2015 32005-XWKRSTY NAIL, 06-2311/17/2017 66450-MLSTQNG NAIL, 06-2302/16/2018 81662-VZIFDUP NAIL, 06-2305/18/2018 05346-LGHVLKF NAIL, 06-2309/14/2018 49474-CCLAJYR NAIL, 06-2312/28/2018 05875-DUHCIJJ NAIL, 06-2309/02/2013 53754-VEOBWCK NAIL, 06-2301/11/2022 79372-Qacoupod Plate 01/11/2022 92382-Afkzhxtw Plate 12/28/2018 65077-Ocyzkzjx Plate 04/05/2019 44942-Vgbqvick Plate 05/18/2018 75592-Wufxotkf Plate 01/05/2016 58266-Whcfwqrv Plate 12/10/2015 14281-Mvrrcyzi Plate 09/02/2013 91130-Yfjmovvu Plate 11/29/2013 82215-Buvmnaid Plate 07/02/2014 26942-Wlnbobwf Plate 02/23/2021 24716-Axsmtkbi Plate 08/14/2020 50491-Hwojmdpm Plate 11/05/2019 06447-Gbdfssww Plate Each Additional 81677- Debride <25 sq cm 09/08/2021 Next Appt Details Provider Name:Melissa Jaffe Juan R , 08/27/2024 01:00:00 PM, [address] [facility], [place], [address], Insurance Providers Payer Name Payer Address Payer Phone Subscriber Number Group Number Insured Name Patient Relationship to Insured Coverage Start Date Coverage End Date Medicare National Govt [facility] [address] [place] [address] [phone] [id number] Naomy Hyman Self - patient is the insured [facility] [address] [place] [address] [id number] Naomy Hyman Self - patient is the insured Medical (General) History Medical History History ICD Code Arthritis back, hip, knee pain high blood pressure osteoporosis thyroid disorder mumps measles chicken pox Surgical History Surgery Date(Month/Year) appendectomy inguinal hernia repair tubal ligation Cataract sx 04/2022
--- OUTSIDE RECORDS SUMMARY | 2024-08-22 12:27 | XMS_ITS ---
Author Organization [facility] Address [address] [facility] [place] [address] Care Team Providers Care Periodicals Clerk Name Role Phone Juan C Fuentes Primary Care Provider Unav ailable Black, Melissa Unavailable [phone] REASON FOR VISIT Painful thick toenails which are aggrevated by shoes and causes difficulty standing/walking, Ankle pain Medications Medication SIG (Take, Route, Frequency, Duration) Notes Start Date End Date Status Work Note . . . . for . 08/14/2013 Not-T aking Sertraline HCl 25 MG 1 tablet Orally Onc e a day Not-Taking Doxazosin Mesylate 1 MG 1/2 tablet Orall y Once a day Not-Taking Bumetanide 0.5 MG 1 tablet Orally Once a day for 30 day(s) Not-Taking Norvasc Not-Taking Work Note . . . PT was out of wo rk 08/15/13-09/20/13 due to stress fx of the right foot.Pt to return to work 09/23/13 for . 09/18/2013 Not-Taking Metoprolol & Diet Manage Prod 25 as directed Orally Active [place] Thyroid 60 MG 1 tablet Orally Onc e a day Active Lasix 20 MG 1 tablet Orally Once a day Active Lisinopril 40 MG 1 tablet Orally Once a day for 30 day(s) Active Social History Tobacco Use: Social History [...] Signs Height 5 ft 3 in in 04/24/2024 Weight 128 lbs 04/24/2024 BMI 22.67 kg/m2 04/24/2024 Blood pressure systolic 130 mm Hg 04/24/20 24 Blood pressure diastolic 70 mm Hg 024 Encounters Encounter Location Date Provider Diagnosis [facility] [address] [address] 04/24/2024 Melissa Pete Tinea unguium B35.1 ; Pain in right toe(s) M79.674 ; Pain in left toe(s) M79.675 ; Pain in left foot M79.672 and Peroneal tendinitis of left lower extremity M76.72 Assessments Encounter Date Diagnosis (ICD Code) Assessment Notes Treatment Notes Treatment Clinical Notes Section Notes 04/24/2024 Tinea unguium (ICD-10 - B35.1) 04/24/2024 Pain in right toe(s) (ICD-10 - M79.674) 04/24/2024 Pain in left toe(s) (ICD-10 - M79.675) 04/24/2024 Pain in left foot (ICD-10 - M79.672) 04/24/2024 Peroneal tendinitis of left lower extremity (ICD-10 - M76.72) Response to treatment - cont. Improvement Plan Of Treatment Next Appt Details Follow Up: prn, Reason: Provider Name:Melissa Pete , 08/27/2024 01:00:00 PM, [address] [facility], [place], [address], Progress Notes * Naomy BLACK LDOB:1945 (78 yo F)Acc No.[id number]:04/24/2024 Progress Note Patient:?Naomy Black Provider:?Melissa Pete DPM :1945???Age:78 Y???Sex:Female D ate:04/24/2024 Address:[address] [place] [address] Murali, [facility] Pcp:BINH Zazueta Subjective: * Chief Complaints: * ???Painful thick toenails wh ich are aggrevated by shoes and causes difficulty standing/walkingAnkle pain * HPI: ???Painful Nails:?Pt States Last PCP Visit:?Date:?03/20/2024 ?Course:?improved.?Ankle Pain:?Nature:?, sharp , shooting.?Location:?Left ankle.?Duration: ?, several months.?Onset/Cause:?twisted ankle when gardening.?Course:?, recurrent but improved 80 %.?Aggravated by:?standing , walking , cold temperatures.?Treatments:?rest/alter normal daily activity , ankle brace/support , change in shoes,topical medication,compression stockings.?Severity/Quality:?moderate.? * ROS:?General/Constitutional:?Nausea?denies.?Vomiting?denies.?Hunger Thirst?denies.?Loss appetite?denies.?Chills?denies.?Fatigue?denies.?Fever?denies.?Night Sweats?denies.?Unexplained weight loss?denies.?Ophthalmologic:?Blurred [...] Cataract sx 04/2022 * Hospitalization/Major Diagno stic Procedure:?Denies Past Hospitalization * Family History:?Mother: dece ased, diagnosed with [...] Manage Prod 25 Miscellaneous as directed Orally [place] Thyroid 60 MG Tablet 1 tablet Orally Once a dayTaking Lasix 20 MG Tablet 1 tablet Orally Once a dayTaking Lisinopril 40 MG Tablet 1 tablet Orally Once a dayTaking Metoprolol & Diet Manage Prod 25 Miscellaneous as directed Orally Taking [place] Thyroid 60 MG Tablet 1 tablet Orally [...] 5 ft 3 in, Wt: 1 28, BMI: 22.67, Shoe size: 9W, BP: 130/70 mm Hg, Wt- k.06 kg. * Examination: ???Orthopedic: ?MUSCLE STRENGTH:?5/5 all groups [...] to , ATFL , minor POP?Peroneal tendons left, at 80 % Less.?Vascular: ?DP PULSES(B):?3/4, B/L.?PT PULSES(B):?3/4, B/L.?Nails: ?NAILS are:?elongated,overgrown,dystrophic,greater than 3mm thick,discolored and friable with crumbly malodorous subungual debris, with pain on palpation, T5 , TA , proximal clearing of nail 70 percent.? Assessment: * Assessment: 1.?Tinea unguium - B35.1, Re sponse to treatment - Improvement?2.?Pain in right toe(s) - M79.674?3.?Pain in left toe(s) - M79.675?4.?Pain in left foot - M79.672?5.?Peroneal tendinitis of left lower extremity - M76.72, Response to treatment - cont. Improvement? Plan: * Treatment: * Procedure Codes:? * Preventive Medicine:? ??Counseling:?Discussion:?-13: Office or other outpatient visit for the evaluation and management of an established patient, which required a medically appropriate history and/or examination and LOW level of DECISION MAKING for: 1 STABLE ACUTE UNCOMPLICATED PROBLEM, 2 OR MORE MINOR PROBLEMS, OR 1 STABLE CHRONIC PROBLEM, THAT POSE(S) A LOW RISK FOR MORBIDITY/MORTALITY. The visit on the day of the [...] was counseled on the remaining treatment options and importance of adherence to recomm; the Pt wishes to continue present protochol longer.?Fungal Nail Counseling:?PREVENTIVE STRATEGIES were reviewed with the patient to avoid recurrent infection. A set of verbal and written instructions regarding proper daily footcare techniques was discussed and dispensed..? * Follow Up:?prn * Images: * Sign off status: Completed true * Provider:?Melissa Pete DPM Date:?2023 Generated for Girish ross/Milly/Deborah on:?08/22/2024 12:26 PM EST History and Physical Notes * HPI (History of Present Illness) Category Sub-Category Detail Notes Category Not es Ankle Pain Duration: , several months Nature: , sharp , shooting Severity/Quality: moderate Treatments: rest/alter normal da jil activity , ankle brace/support , change in shoes,topical medication,compression stockings Course: , recurrent but impr noelle 80 % Location: Left ankle Onset/Cause: twisted ankle when g ardening Aggravated by: standing , walking , cold temperatures Painful Nails Course: improved Pt States Last PCP Visit: Date:: 03/20/2024 Examination Category Sub-Category Detail Notes Category Not es Neurological SENSORY: Orthopedic GAIT ABNORMALITY: antalgic FOOT MORPHOLOGY: Pes Cavus structure , B/L , Decreased Ankle joint dorsiflexion ROM, knee extended , Decreased Ankle joint dorsiflexion ROM, knee flexed ANKLE PAIN LOCATED: LEFT , (- ) swelling , NO Pain on palpation to , ATFL , minor POP Peroneal tendons left, at 80 % Less DIGITAL DEFORMITIES: Digital contracture , PIPJ, 2-5 [...] with pain on palpation, T5 , TA , proximal clearing of nail 70 percent
== END 2024-08-22 11:18 | disposition home or self-care (01) ==
PROVIDERS: PCP Nurse Practitioner Family; Visit Provider Nurse Practitioner Family
DX: I10 Essential (primary) hypertension (principal)

== ENCOUNTER → 2024-08-22 10:26 | Outpatient (BNVA) | payer MEDICARE, BC, SELFPAY | PROVIDERS: PCP Nurse Practitioner Family; Visit Provider Nurse Practitioner Family | DX: I10 Essential (primary) hypertension (principal) | CPT/HCPCS: 99212 ==

== ENCOUNTER 2024-08-27 08:13 | Outpatient (AMB) | payer MEDICARE, BC, SELFPAY ==
--- NOTE | 2024-08-27 08:32 | AM.OFFWIN_ITS ---
Intake Vital Signs 08/27/24 08:34 BP 170/78 H Blood Pressure Location Rt brachial Position Sitting Pulse 59 Pulse Source Pulse Oximeter Pulse Oximetry (%) 99 Oxygen Delivery Method Room Air Intake Visit Reasons: EP High BP 180/75, feeling dizzy, weak Intake Note: Patient here for elevated BP. Patient Tobacco Use Status: Former Tobacco user Allergies adhesive tape Allergy (Unknown, Verified 08/27/24 08:33) hives amlodipine [From Norvasc] Allergy (Unknown, Verified 08/27/24 08:33) Swelling od hands/feet bacitracin [From Cortisporin] Allergy (Unknown, Verified 08/27/24 08:33) Eye irritation brompheniramine [From Dimetapp Cold-Allergy (PE)] Allergy (Unknown, Verified 08/27/24 08:33) Body Rash calcium [From DHEA] Allergy (Unknown, Verified 08/27/24 08:33) Unknown calcium carbonate [From DHEA] Allergy (Unknown, Verified 08/27/24 08:33) Unknown cefaclor Allergy (Unknown, Verified 08/27/24 08:33) Perineum rash chlorpheniramine [From Fedahist] Allergy (Unknown, Verified 08/27/24 08:33) Body Rash clindamycin Allergy (Unknown, Verified 08/27/24 08:33) GI upset/pain/vomiting devil's claw Allergy (Unknown, Verified 08/27/24 08:33) unsure reaction dexbrompheniramine [From Drixoral] Allergy (Unknown, Verified 08/27/24 08:33) Body Rash diphenhydramine [From Benadryl] Allergy (Unknown, Verified 08/27/24 08:33) Body Rash doxazosin Allergy (Unknown, Verified 08/27/24 08:33) Extreme anxiety erythromycin base Allergy (Unknown, Verified 08/27/24 08:33) Perineum rash garlic Allergy (Unknown, Verified 08/27/24 08:33) Unknown gentamicin [From Garamycin] Allergy (Unknown, Verified 08/27/24 08:33) [eye drops] Eye swelling ginkgo biloba Allergy (Unknown, Verified 08/27/24 08:33) piercing pain in head guaifenesin [From Fedahist] Allergy (Unknown, Verified 08/27/24 08:33) Body Rash hydralazine Allergy (Unknown, Verified 08/27/24 08:33) Swelling of feet/legs hydrochlorothiazide Allergy (Unknown, Verified 08/27/24 08:33) Itchy palms hydrocortisone [From Cortisporin] Allergy (Unknown, Verified 08/27/24 08:33) Eye irritation meclizine Allergy (Unknown, Verified 08/27/24 08:33) very dry mouth methylsulfonylmethane [From MSM] Allergy (Unknown, Verified 08/27/24 08:33) Itchy palms nebivolol [From Bystolic] Allergy (Unknown, Verified 08/27/24 08:33) Swelling of feet/ legs neomycin [From Cortisporin] Allergy (Unknown, Verified 08/27/24 08:33) Eye irritation nifedipine [From Procardia] Allergy (Unknown, Verified 08/27/24 08:33) Swelling of feet and legs nut - unspecified Allergy (Unknown, Verified 08/27/24 08:33) mouth sores Peanut Butter Allergy (Unknown, Verified 08/27/24 08:33) mouth sores penicillin V Allergy (Unknown, Verified 08/27/24 08:33) Body rash Penicillins Allergy (Unknown, Verified 08/27/24 08:33) body rash phenylephrine [From Dimetapp Cold-Allergy (PE)] Allergy (Unknown, Verified 08/27/24 08:33) Body Rash polymyxin B [From Cortisporin] Allergy (Unknown, Verified 08/27/24 08:33) Eye irritation prasterone (DHEA) [From DHEA] Allergy (Unknown, Verified 08/27/24 08:33) Unknown propoxyphene [From Darvon] Allergy (Unknown, Verified 08/27/24 08:33) Unknown pseudoephedrine [From Drixoral] Allergy (Unknown, Verified 08/27/24 08:33) Body Rash shellfish derived Allergy (Unknown, Verified 08/27/24 08:33) itchy body Sulfa (Sulfonamide Antibiotics) Allergy (Unknown, Verified 08/27/24 08:33) Itchy palms sulfamethoxazole [From Bactrim] Allergy (Unknown, Verified 08/27/24 08:33) itchy palms trimethoprim [From Bactrim] Allergy (Unknown, Verified 08/27/24 08:33) itchy palms prednisone Allergy (Verified 08/27/24 08:33) Flushing Carditone Allergy (Unknown, Uncoded 08/27/24 08:33) Swelling of feet/legs; itchy body Medication List - Last Reconciled 08/27/24 by Isa Martin PA-C furosemide 30 mg (1.5 x 20 mg) PO DAILY 90 days lisinopril 40 mg PO DAILY 90 days metoprolol succinate ER 125 mg PO DAILY metoprolol succinate ER 125 mg PO DAILY thyroid (pork) ([place] Thyroid) 60 mg PO DAILY Do you need a note to return to daycare/school/sports/work: No HPI HPI Comments History of Present Illness Details History of Present Illness - The patient is a 79-year-old female pr esenting with dizzyness, weakness and fatigue. - Managed with metoprolol, lisinopril, a nd furosemide, recent adjustments to metoprolol have resulted in significant fatigue, dizzyiness, and lower hr, with recent heart rates as low as 50 beats per minute, noted by pt at home. - The patient historically reported sundar rgy-like symptoms to amlodipine, though a trial of this medication is now considered. - She has stage 3 chronic kidney disease , with a GFR noted to be between 30 and 59, leading to questions about nutritional interventions and management, specifically a renal diet . - Current blood pressure management has been challenging, with current readings as high as 180/90 mmHg, even with the raised dose of metoprolol. Physical Exam General: Cooperative, healthy appearing, comfortable, no acute distress and well developed Orientation: Patient oriented x3 Limitations: No limitations Head: Normal to inspection Ears: Hearing grossly normal bilaterally Nose: Normal external nose present Face and sinus: Normal facial exam Eyes: Appearance normal, both eyes and all related structures Neck: Normal visual inspection and Yes full ROM Respiratory: Normal respiratory effort and able to speak in complete sentences. Clear to auscultation bilaterally Cardiovascular: Regular rate and rhythm. Normal S1 and S2 Skin: No rashes or lesions noted Neuro: Patient oriented x3 Extremities: Normal to inspection [facility] Medical History Fall Dyslipidemia Colonoscopy refused Osteoporosis Hypothyroid HTN (hypertension) Aortic insufficiency Osteopenia CKD (chronic kidney disease) stage 3, GFR 30-59 ml/min Mitral valve disorder Surgical History History of breast biopsy History of tubal ligation Family History Father No problems noted. Mother Pancreatic cancer Social History Housing: Condominium Patient Tobacco Use Status: Former Tobacco user Years Smoked: 50 years ago e-Cigarette/Vaping Use: Never Used Second Hand Smoke Exposure: No service: No Current occupational status: retired Cognitive needs: No Hearing needs: No Vision needs: No Review of Systems Const All systems reviewed & are unremarkable except as noted in HPI and below Physical Exam Vital Signs: Last Vital Signs Pulse 59 08/27/24 08:34 BP 170/78 H 08/27/24 08:34 Pulse Ox 99 08/27/24 08:34 Oxygen Delivery Method Room Air 08/27/24 08:34 Assessment & Plan Assessment & Plan (1) Hypertension: Code(s): I10 - Essential (primary) hypertension Qualifiers: Hypertension type: essential hypertension Qualified Code(s): I10 - Essential (primary) hypertension Plan: The current plan involves reverting the patient's metoprolol to 100 mg once daily and introducing a small dose of amlodipine at 5 mg per day to enhance blood pressure control, noting previous unclear allergies. The patient will continue on lisinopril and furosemide for hypertension management. Blood pressure and heart rate will be monitored, particularly two hours post- medication, to ensure normalization of heart rate and 12 hours later, with heart rate as well. Pateint has appt with nurse navigator, Angelia on Monday, she will bring BP and HR log on Monday, may need to increase to 10mg on Monday pending results. Patient was informed and verbally consented to the use of an ambient scribe for clinic note documentation during this visit. (2) Dizziness: Code(s): R42 - Dizziness and giddiness Plan: as above, likely secondary to lowered HR with increased metoprolol dose, reduce back to 100mg daily, from 125mg daily. Medications: New amlodipine 5 mg PO DAILY 30 tabs 0RF Changed From metoprolol succinate ER 125 mg PO DAILY To metoprolol succinate ER 100 mg PO DAILY 90 days 90 tabs 0RF Coding Level of Care Code Est Pt Level 3 (62773) Diagnoses Essential hypertension I10 Hypertension type: essential hypertension Dizziness R42
[2024-08-27 08:34] VITALS: BP 170/78; PULSE 59; O2SAT 99
--- OUTSIDE RECORDS SUMMARY | 2024-08-27 08:51 | XMS_ITS | Clinical Summary ---
Author Organization [facility] Address [address] [place] [address] Phone Care Team Providers Care Spine Supervisor Name Role Phone Juan C Skelton NP Primary Care Provider Encounters Date Type Department Care Team Description 06/17/2024 10:32 AM EST - 06/17/2024 11:59 PM EST Hospital En[facility] at [address] [address] Encounter for screening mammogram for [...] for biopsy. PQRI CPT II 3342F Code 52178, 54888 PQRI 225 CPT II 7025F TISSUE DENSITY: There are scattered areas of fibroglandular density. (BI-RADS category B) IMPRESSION: Benign. BI-RADS CATEGORY: 2 - BENIGN RECOMMENDATION: Screening bilateral mammogram is recommended in 1 year. Mammo Location: [facility], [facility], [address] [place] [id number] -------- FINAL REPORT -------- Dictated By: John Hernández Dictated Date: 06/17/2024 11:47 ET Assigned Physician: John Hernández Reviewed and Electronically Signed By: John Hernández Signed Date: 06/17/2024 11:53 ET Workstation ID: [id number] Transcribed By: Self Edit Transcribed Date: 06/17/2024 [...] and CC projection is performed in the Scrypt, Ince 2000-D unit. ??Computer aided detection utilizing the [...] MLO and CC projection is performed in theSympozographe 2000-D unit. Computer aided detection utilizing the IRL Gamingystem was utilized. FINDINGS: The breasts are again [...] for biopsy. PQRI CPT II 3342F Code 90273, 65265 PQRI 225 CPT II 7025F TISSUE DENSITY: There are scattered areas of fibroglandular density.(BI-RADS category B) IMPRESSION: Benign. BI-RADS CATEGORY: 2 - BENIGN RECOMMENDATION: Screening bilateral mammogram is recommended in 1 year. Mammo Location: [facility], [facility], [address] [place] [address] -------- FINAL REPORT -------- Dictated By: John Hernández Dictated Date: 06/17/2024 11:47 ET Assigned Physician: John Hernández Reviewed and Electronically Signed By: John Hernández Signed Date: 06/17/2024 11:53 ET Workstation ID: [id number] Transcribed By: Self Edit Transcribed Date: 06/17/2024 11:47 ET us Self Referral [facility] IMG BI PROCEDURES Final Resul t from Last 3 Months Insurance [facility]ARE [facility] Care Teams Spine Supervisor Relationship Specialty Start Date End Date Juan C Skelton NP PCP - General Family Medicine 05/27/24
--- OUTSIDE RECORDS SUMMARY | 2024-08-27 08:51 | XMS_ITS ---
Author Organization [facility] Address [address] [facility] [place] [address] Care Team Providers Care Structural Biologist Name Role Phone Juan C Fuentes Primary Care Provider Unav ailable Black, Melissa Unavailable [phone] REASON FOR VISIT Painful thick toenails which [...] to work 09/23/13 for . 09/18/2013 Not-Taking [place] Thyroid 60 MG 1 tablet Orally Onc [...] Ordered Date Performed Result Body Sit e 06994-YSMTXRR NAIL, 1-01/03/2024 N/A Encounters Encounter Location Date Provider Diagnosis [facility] [address] [place] [facility] [place] [address] 01/03/2024 Melissa Pete Sprain of anterior talofibular [...] Treatment Pending Test Test Name Order Date [id number] NAIL, -01/03/2024 Next Appt Details Follow Up: prn, Reason: Provider Name:Melissa Pete , 08/27/2024 01:00:00 PM, [address] [place] [address] [place], [place], [address], Procedure Notes * Category Sub-Category Detail Notes [...] as necessary. Patient chooses,to cont. vicks vapor [id number] Progress Notes * Naomy BLACK LDOB:1945 (78 yo F)Acc No.[id number]:01/03/2024 Progress Note Patient:?Naomy Black L Provider:?Melissa Pete DPM :1945???Age:78 Y???Sex:Female D ate:01/03/2024 Address:[address] [place], [place] [id number] Pcp:BINH Zazueta Subjective: * Chief Complaints: * [...] Manage Prod 25 Miscellaneous as directed Orally [place] Thyroid 60 MG Tablet 1 tablet Orally Once a dayTaking Lasix 20 MG Tablet 1 tablet Orally Once a dayTaking Lisinopril 40 MG Tablet 1 tablet Orally Once a dayTaking Metoprolol & Diet Manage Prod 25 Miscellaneous as directed Orally Taking [place] Thyroid 60 MG Tablet 1 tablet Orally [...] as necessary. Patient chooses,to cont. vicks vapor [id number]? * Procedure Codes:?95086 PABLO CASTILLO, 1-5, Modifiers: XS * Preventive [...] Pete DPM Date:?2023 Generated for Girish ross/Milly/Deborah on:?08/27/2024 08:51 AM EDT History and Physical Notes * HPI (History [...]
--- OUTSIDE RECORDS SUMMARY | 2024-08-27 08:51 | XMS_ITS | Clinical Summary ---
Author Organization [facility] Address [address] [place] [address] [place] [address] Phone Care Team Providers Care Extruder Operator Name Role Phone Unavailable Primary Care Provider Unavailabl e Allergies Active Allergy Reactions Criticality Noted Date Comments Adhesive Tape 10/22/2020 Amlodipine 10/22/2020 Bacitracin 10/22/2020 Sulfamethoxazole-Trimethoprim Other (see comments) 10/22/2020 Penicillin G Benzathine Rash Low 10/22/2020 Brompheniramine 10/22/2020 Calcium 10/22/2020 Calcium Carbonate 10/22/2020 Cefaclor 10/22/2020 Chlorpheniramine 10/22/2020 Clindamycin Other (see comments) 10/22/2020 Efhosmy-Ybcsvojq-Dcbfbfpgz-Hc Other (see comments) 06/01/2021 Propoxyphene 10/22/2020 Dexbrompheniramine 10/22/2020 Chlorpheniramine-Dm Other (see comments) 2020 Diphenhydramine Other (see comments) 10/22/2020 Doxazosin 10/22/2020 Dexbrompheniramine-Pseudoeph Other (see comments) 06/01/2021 Erythromycin 10/22/2020 Gentamicin 10/22/2020 Garlic 10/22/2020 Ginkgo Biloba 10/22/2020 Guaifenesin 10/22/2020 Hydralazine 10/22/2020 Hydrochlorothiazide Other (see comments) 2020 Hydrocortisone 10/22/2020 Latex Other (see comments) 06/01/2021 Meclizine 10/22/2020 Methylsulfonylmethane 10/22/2020 Qigtpkejwblfwaa-Wc-Txvb Other (see comments) Nebivolol 10/22/2020 Nebivolol Hcl [...] age to complete this topic Insurance MEDICARE [facility] [place] [address] [address] [facility]
--- OUTSIDE RECORDS SUMMARY | 2024-08-27 08:51 | XMS_ITS ---
Author Organization [facility] Address [address] [facility] [place] [address] Care Team Providers Care Head Teacher Name Role Phone Juan C Fuentes Primary Care Provider Unav ailable Juan R Melissa Sanders [phone] Encounters Encounter Location Date Provider Diagnosis [address] [address] 08/27/2024 Melissa Pete Plan Of Treatment Next Appt Details Provider Name:Melissa Pete , 08/27/2024 01:00:00 PM, [address] [facility], [place], [address], Progress Notes * Naomy BLACK LDOB:1945 (79 yo F)Acc No.[id number]:08/27/2024 Progress Note Patient:?Naomy BLACK Provider:?Melissa Pete DPM :1945???Age:79 Y???Sex:Female D ate:08/27/2024 Address:[address], [place] Pcp:BINH Zazueta Subjective: * Chief Complaints: * ??? * Medical History:? Objective: * Vitals:? Assessment: Plan: * Treatment: * Images: * The named appointment provid er may or may not be the originator of this progress note, and it is not deemed complete until electronically signed by the appointment provider. Sign off status: Pending * Provider:Rivera Pete DPM Date:?2024 Generated for Girish ross/Milly/Cecilyitting on:?08/27/2024 08:51 AM EDT
--- OUTSIDE RECORDS SUMMARY | 2024-08-27 08:52 | XMS_ITS ---
Author Organization [facility] Address [address] [facility] [place] [address] Care Team Providers Care Radio Communications Mechanician Name Role Phone Juan C Fuentes Primary Care Provider Unav ailable Black, Melissa Unavailable [phone] REASON FOR VISIT Painful thick toenails which [...] Manage Prod 25 as directed Orally Active [place] Thyroid 60 MG 1 tablet Orally Onc [...] 024 Encounters Encounter Location Date Provider Diagnosis [facility] [address] [address] 04/24/2024 Melissa Pete Tinea unguium B35.1 ; [...] Name:Melissa Pete , 08/27/2024 01:00:00 PM, [address] [facility], [place], [address], Progress Notes * Naomy BLACK LDOB:1945 (78 yo F)Acc No.[id number]:04/24/2024 Progress Note Patient:?Naomy Black Provider:?Melissa Pete DPM :1945???Age:78 Y???Sex:Female D ate:04/24/2024 Address:[address] [place] [address] [place], [facility] Pcp:BINH Zazueta Subjective: * Chief Complaints: * [...] Manage Prod 25 Miscellaneous as directed Orally [place] Thyroid 60 MG Tablet 1 tablet Orally Once a dayTaking Lasix 20 MG Tablet 1 tablet Orally Once a dayTaking Lisinopril 40 MG Tablet 1 tablet Orally Once a dayTaking Metoprolol & Diet Manage Prod 25 Miscellaneous as directed Orally Taking [place] Thyroid 60 MG Tablet 1 tablet Orally [...]
--- OUTSIDE RECORDS SUMMARY | 2024-08-27 08:52 | XMS_ITS | Patient Health Record ---
[facility] Address [address] [facility] [place] [address] Care Team Providers Care Machine Helper Name Role Phone Juan C Fuentes Primary Care Provider Unav ailable BlackMelissa Unavailable [phone] Results Component Value Reference Range Notes X ray : Foot, left 2V Reviewed date:09/13/2023 01:02:25 PM Interpretation:See Examination above Performing Lab: Notes/Report: See Examination above X ray : Ankle, left 2V Reviewed [...] Manage Prod 25 as directed Orally Active Stout Thyroid 60 MG 1 tablet Orally Onc [...] primary osteoarthritis of the ankle and/or foot (294965683) Primary osteoarthritis, 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 confirmed Problem Ulcer of foot (03686050) Non-pressure chronic ulcer of other part of left foot limited to breakdown of skin (L97.521) Active confirmed Problem Acquired deformity of left foot (3309396923336022 4) 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) Active confirmed Vital Signs Blood pressure diastolic 70 mm Hg 04/24/2024 Height 5 ft 3 in in 04/24/2024 Blood pressure systolic 130 mm Hg 04/24/2024 Weight 128 lbs 04/24/2024 BMI 22.67 kg/m2 04/24/2024 Procedures Procedure Date Ordered Date Performed Result Body Sit e 06842-OCYKIVM NAIL, 1-5 09/13/2023 N/A 80150-ERTJDOF NAIL, 1-5 01/03/2024 N/A Encounters Encounter Location Date [facility] [address] 09/13/2023 Melissa Black Muscle cramp, nocturnal R25.2 ; Sprain of anterior talofibular ligament of left ankle, initial encounter S93.492A ; Tinea unguium B35.1 ; Pain in right toe(s) M79.674 ; Pain in left toe(s) M79.675 ; Pain in left foot M79.672 ; Peroneal tendinitis of left lower extremity M76.72 and Acute left ankle pain M25.[address] [facility] [address] 01/03/2024 Melissa Black Sprain of anterior talofibular ligament of left ankle, initial encounter S93.492A ; Tinea unguium B35.1 ; Pain in right toe(s) M79.674 ; Pain in left toe(s) M79.675 ; Pain in left foot M79.672 ; Peroneal tendinitis of left lower extremity M76.72 and Acute left ankle pain M25.572 [facility] [place] [address] [facility] [place] [address] 04/24/2024 Melissa Black Tinea unguium B35.1 ; [...] X ray : Foot, left 3V 03/22/2022 92078-AVJZAYY NAIL, 1-5 05/17/2022 04689-OKXWFAZ NAIL, -09/13/2022 99600-WQZZKRW NAIL, -01/10/2023 95210-NWJSUZE NAIL, -5 05/03/2023 90842-EVDSAVS NAIL, -5 09/13/2023 81125-NIOSSUM NAIL, -5 01/03/2024 44539-RPISKTZ NAIL, -5 02/23/2021 46515-UCZZNQI NAIL, -5 06/01/2021 22829-PEGUXPU NAIL, -5 09/08/2021 18252-IWTURVD NAIL, -5 04/05/2019 27185-XUWCGRR NAIL, -07/10/2019 30805-PMZSSDY NAIL, 06-2311/05/2019 69360-TXMRCDJ NAIL, 06-2302/07/2020 46481-UXBYYZN NAIL, 06-2305/08/2020 01884-IAMJFGF NAIL, 06-2308/14/2020 37516-GHRFVNL NAIL, 06-2311/18/2020 85092-WWSNEBR NAIL, 06-2310/10/2014 44672-CANDQFX NAIL, 06-2304/14/2015 12309-MVWJWBC NAIL, 06-2308/13/2015 01956-NDHANTL NAIL, 06-2312/10/2015 78983-BMANABE NAIL, 06-2311/17/2017 77154-WWKIXMG NAIL, 06-2302/16/2018 43128-UWHMPQE NAIL, 06-2305/18/2018 95351-UTAUQKW NAIL, 06-2309/14/2018 35709-HWPZLGU NAIL, 06-2312/28/2018 61820-IZNVHVJ NAIL, 06-2309/02/2013 74262-LFHILWQ NAIL, 06-2301/11/2022 51530-Jwwjolwx Plate 01/11/2022 19266-Goxonnfw Plate 12/28/2018 27916-Fltldovd Plate 04/05/2019 09331-Rpgdwjss Plate 05/18/2018 60313-Pcmaadxs Plate 01/05/2016 30017-Htfppcbl Plate 12/10/2015 78267-Qcgmdtjp Plate 09/02/2013 88113-Gjdfkbdf Plate 11/29/2013 65685-Rxzosuyq Plate 07/02/2014 93157-Vtoxfzsd Plate 02/23/2021 95861-Fkafhzdi Plate 08/14/2020 27719-Ldoewnjf Plate 11/05/2019 95992-Lasvndkm Plate Each Additional 65464- Debride <25 sq cm 09/08/2021 Next Appt Details Provider Name:Melissa Jaffe Juan R , 08/27/2024 01:00:00 PM, [address] [facility], [place], [address], Insurance Providers Payer Name Payer Address Payer Phone Subscriber Number Group Number Insured Name Patient Relationship to Insured Coverage Start Date Coverage End Date Medicare National Govt [facility] [address] [place] [address] [phone] [id number] Naomy Hyman Self - patient is the insured [facility] [address] [place] [address] [id number] Naomy Hyman Self - patient is the insured Medical (General) History Medical History History ICD Code Arthritis back, hip, knee pain high blood pressure osteoporosis thyroid disorder mumps measles chicken pox Surgical History Surgery Date(Month/Year) appendectomy inguinal hernia repair tubal ligation Cataract sx 04/2022
== END 2024-08-27 09:11 | disposition home or self-care (01) ==
PROVIDERS: PCP Nurse Practitioner Family; Visit Provider Physician Assistant
DX: I10 Essential (primary) hypertension (principal); R42 Dizziness and giddiness

== ENCOUNTER → 2024-08-27 08:13 | Outpatient (BNVA) | payer MEDICARE, BC, SELFPAY | PROVIDERS: PCP Nurse Practitioner Family; Visit Provider Physician Assistant | DX: I10 Essential (primary) hypertension (principal); R42 Dizziness and giddiness | CPT/HCPCS: 99212 ==

== ENCOUNTER 2024-09-18 06:50 | Outpatient (REF) | payer MEDICARE, BC, SELFPAY ==
--- OUTSIDE RECORDS SUMMARY | 2024-09-18 06:53 | XMS_ITS | Clinical Summary ---
Author Organization [facility] Address [address] [place] [address] [place] [address] Phone Care Team Providers Care Steam Distribution Supervisor Name Role Phone Unavailable Primary Care Provider Unavailabl e Allergies Active Allergy Reactions Criticality Noted Date Comments Adhesive Tape 10/22/2020 Amlodipine 10/22/2020 Bacitracin 10/22/2020 Sulfamethoxazole-Trimethoprim Other (see comments) 10/22/2020 Penicillin G Benzathine Rash Low 10/22/2020 Brompheniramine 10/22/2020 Calcium 10/22/2020 Calcium Carbonate 10/22/2020 Cefaclor 10/22/2020 Chlorpheniramine 10/22/2020 Clindamycin Other (see comments) 10/22/2020 Qfwdjva-Sfxvggfo-Lomcvvldi-Hc Other (see comments) 06/01/2021 Propoxyphene 10/22/2020 Dexbrompheniramine 10/22/2020 Chlorpheniramine-Dm Other (see comments) 2020 Diphenhydramine Other (see comments) 10/22/2020 Doxazosin 10/22/2020 Dexbrompheniramine-Pseudoeph Other (see comments) 06/01/2021 Erythromycin 10/22/2020 Gentamicin 10/22/2020 Garlic 10/22/2020 Ginkgo Biloba 10/22/2020 Guaifenesin 10/22/2020 Hydralazine 10/22/2020 Hydrochlorothiazide Other (see comments) 2020 Hydrocortisone 10/22/2020 Latex Other (see comments) 06/01/2021 Meclizine 10/22/2020 Methylsulfonylmethane 10/22/2020 Pmaqkhtvgkycoyk-Ap-Fxzq Other (see comments) Nebivolol 10/22/2020 Nebivolol Hcl [...] age to complete this topic Insurance MEDICARE [facility] [place] [address] MEDICARE [facility]
--- OUTSIDE RECORDS SUMMARY | 2024-09-18 06:53 | XMS_ITS ---
Author Organization [facility] Address [address] [facility] [place] [address] Care Team Providers Care Chemist Pharmaceutical Name Role Phone Juan C Fuentes Primary Care Provider Unav ailable Black, Melissa Unavailable [phone] REASON FOR VISIT Ingrown Nail, Painful nail(s) aggravated by shoes causing difficulty standing/walking Medications Medication SIG (Take, Route, Frequency, Duration) Notes Start Date End Date Status [place] Thyroid 60 MG 1 tablet Orally Onc e a day Active Work Note . . . PT was out of wo rk 08/15/13-09/20/13 due to stress fx of the right foot.Pt to return to work 09/23/13 for . 09/18/2013 Not-Taking Lisinopril 40 MG 1 tablet Orally Once a day for 30 day(s) Active Metoprolol & Diet Manage Prod 25 as directed Orally Active Work Note . . . . for . 08/14/2013 Not-T aking Bumetanide 0.5 MG 1 tablet Orally Once a day for 30 day(s) Not-Taking Norvasc Active Lasix 20 MG 1 tablet Orally Once a day Active Sertraline HCl 25 MG 1 tablet Orally Onc e a day Not-Taking Doxazosin Mesylate 1 MG 1/2 tablet Orall y Once a day Not-Taking Social History Tobacco Use: Social History Observation Description Date Details (start date - stop date) Never Smoker NA - NA Tobacco use other than smoking: Question Answer Notes Are you an other tobacco user? No Tobacco Control (Standard) Question Answer Notes Tobacco use: Nonsmoker Additional Findings: Tobacco non-user Current no nsmoker AUDIT-C (Standard) Question Answer Notes Did you have a drink containing alcohol in the p ast year? No Points 0 Interpretation Negative Vital Signs Height 5 ft 3 in in 08/27/2024 Weight 128 lbs 08/27/2024 BMI 22.67 kg/m2 08/27/2024 Blood pressure systolic 180 mm Hg 08/28/19 25 Blood pressure diastolic 70 mm Hg 025 Procedures Procedure Date Ordered Date Performed Result Body Sit e 77035-FJISSNT NAIL, 1-5 08/27/2024 N/A 74872-Gpdtxkti Plate 08/27/2024 N/A Encounters Encounter Location Date Provider Diagnosis [facility] [address] [place] [address] 08/27/2024 Melissa Pete Ingrown nail L60.0 ; Onychomycosis B35.1 and Pain in left toe(s) M79.675 Assessments Encounter Date Diagnosis (ICD Code) Assessment Notes Treatment Notes Treatment Clinical Notes Section Notes 08/27/2024 Ingrown nail (ICD-10 - L60.0) 08/27/2024 Onychomycosis (ICD-10 - B35.1) 08/27/2024 Pain in left toe(s) (ICD-10 - M79.675) Plan Of Treatment Pending Test Test Name Order Date 55510-YUSEECN NAIL, 1-08/27/2024 32491-Irwfbigu Plate 08/27/2024 Next Appt Details Follow Up: 2 Weeks, Reason: Provider Name:Melissa Pete , 11/26/2024 02:00:00 PM, [address] [facility], [place], [address], Procedure Notes * Category Sub-Category Detail Notes Nail Avulsion Procedure A fine sterile e levator was placed between the eponychium, nail fold, and nail plate to separate the structures. A sterile nail splitter, and/or sterile 316 blade, was then used to longitudinally section the nail along its entire length through the eponychium to the area under the nail fold. The offending portion of nail was from the nail bed with a rolling action and then removed with a hemostat. No underlying bone was identified. There was minimal bleeding as hemostasis was achieved through the temporary use of either a digital tourniquet or the aforementioned local with epinephrine. A bacitracin sterile dressing was applied. Local wound aftercare instructions were discussed and dispensed. The patient was informed of both conservative and future surgical procedures to prevent recurrence. Tylenol or Motrin was recommended for pain or discomfort ([address]176) Anesthesia , was accomplished T OPICALLY with Lidocaine Hydrochloride Jelly 2 percent Location , Bilateral nail bor sean, TA Debride Nails 1-5 Procedure: Due to the cli nical pathology outlined in the exam findings, performance of this nail treatment is medically necessary as its management by an unskilled/untrained nonprofessional would put this patients foot and overall health at risk. Therefore, debridement to affected nail(s), as described in exam ( T4_ ), was performed exclusively by the physician of record to reduce/remove overall nail length, girth, thickness, subungual debris, and necrotic tissue, by manual and/or electrical means through the use of a nail nipper and/or dremel stylegrinder, to a more viable healthy nail plate or bed tissue 5 nails or fewer in number. Silver nitrate was used for any petechial bleeding as necessary. Definitive antifungal treatment options, both pharmaceutical and surgical, have been reviewed and discussed with the patient. The patient solely prefers the use of intermittent/as needed professional debridement services for their nail condition and understands that additional periodic treatments may be required as necessary to maintain effective symptomatic relief - [address]160 Progress Notes * Naomy BLACK LDOB:1945 (79 yo F)Acc No.[id number]:08/27/2024 Progress Note Patient:?Naomy BLACK Provider:?Melissa Pete DPM :1945???Age:79 Y???Sex:Female D ate:08/27/2024 Address: [address], [facility], [place] Pcp:BINH Zazueta Subjective: * Chief Complaints: * ???Ingrown NailPainful nail( s) aggravated by shoes causing difficulty standing/walking * HPI: ???Painful Nails:?Pt States Last PCP Visit:?Date:?06/06/2024 * ROS:?General/Constitutional:?Nausea?denies.?Vomiting?denies.?Hunger Thirst?denies.?Loss appetite?denies.?Chills?denies.?Fatigue?denies.?Fever?denies.?Night Sweats?denies.?Unexplained weight loss?denies.?Ophthalmologic:?Blurred [...] * Family History:?Mother: dece ased, diagnosed with Other malignant neoplasm of unspecified site, Unspecified essential hypertension, Family history of arthritis.?Father: .?Siblings: blood pressure.? * Social History:?Tobacco Use:?Tobacco use other than smoking?Are you an other tobacco user??No ?Tobacco Control (Standard)?Tobacco use:?Nonsmoker ?Additional Findings: Tobacco non-user?Current nonsmoker ???Drugs/Alcohol:?Drugs?Have you used drugs other than those for medical reasons in the past 12 months? No.?Miscellaneous:?Caffeine: no. ?Children: no. ?Exercise: yes, gym, exercise. ?Marital status: single. ?Occupation: retired-[employer] office. ???Drug/Alcohol:?AUDIT-C (Standard)?Did you have a drink containing alcohol in the past year??No ?Points?0 ?Interpretation?Negative * Medications:?TakingLasix 20 MG Tablet 1 tablet Orally Once a day Lisinopril 40 MG Tablet 1 tablet Orally Once a day Metoprolol & Diet Manage Prod 25 Miscellaneous as directed Orally [place] Thyroid 60 MG Tablet 1 tablet Orally Once a day Norvasc Taking Lasix 20 MG Tablet 1 tablet Orally Once a day Taking Lisinopril 40 MG Tablet 1 tablet Orally Once a day Taking Metoprolol & Diet Manage Prod 25 Miscellaneous as directed Orally Taking [place] Thyroid 60 MG Tablet 1 tablet Orally Once a day Taking Norvasc Not-Taking/PRNWork Note . . . . PT was out of work 08/15/13-09/20/13 due to stress fx of the right foot.Pt to return to work 09/23/13 Work Note . . . . . Bumetanide 0.5 MG Tablet 1 tablet Orally Once a day Sertraline HCl 25 MG Tablet 1 tablet Orally Once a day Doxazosin Mesylate 1 MG Tablet 1/2 tablet Orally Once a day Medication List reviewed and reconciled with the patientNot-Taking/PRN Work Note . . . . PT was out of work 08/15/13-09/20/13 due to stress fx of the right foot.Pt to return to work 09/23/13 Not-Taking/PRN Work Note . . . . . Not-Taking/PRN Bumetanide 0.5 MG Tablet 1 tablet Orally Once a day Not-Taking/PRN Sertraline HCl 25 MG Tablet 1 tablet Orally Once a day Not-Taking/PRN Doxazosin Mesylate 1 MG Tablet 1/2 tablet Orally Once a day Medication List reviewed and reconciled with the patient * Allergies:?BenadrylDimetapp MultiSymptom Cold/FluDimetapp Long Act Cough/ColdDrixoral Cold/AllergyClindamycin HCl - Onset Date 12/28/2018BactrimHydrochlorothiazideGaramycinCortisporinNorvascBystolicHydrALAZIN E HClProcardia XLDoxazosin MesylateShellfish-derived ProductsErythromycinLatexPrednisone: facial flushingPenicillinAdhesiveyes[Allergies Verified] Objective: * Vitals:?Ht: 5 ft 3 in, Wt: 1 28, BMI: 22.67, Shoe size: 10W, BP: 180/70 mm Hg, Wt-k.06 kg. * Examination: ???General Examination: ?GENERAL APPEARANCE:?Reveals a pleasant, alert, well nourished, well- developed, well hydrated individual, who demonstrates proper attention to hygiene/body habitus, and is in no acute distress, Pt serves as own historian for office visit today.?ORIENTED:?person, place, and time.?Ingrown Nail: ?INSPECTION:?Reveals nail incurvation, pain on palpation, groove hypertrophy, groove ischemia, Bilateral nail borders, TA.?Nails: ?NAILS are:?Elongated, overgrown, dystrophic, lytic, greater than 3mm thick, discolored and friable with crumbly malodorous subungual debris, with pain on palpation, T4.? Assessment: * Assessment: 1.?Ingrown nail - L60.0 (Maci gaye)???2.?Onychomycosis - B35.1???3.?Pain in left toe(s) - M79.675??? Plan: * Treatment: 2.?Onychomycosis?Procedure: 28705-DWVEIAC NAIL, 1-5 * Procedures:?Debride Nails 1-5:?Procedure:?Due to the clinical pathology outlined in the exam findings, performance of this nail treatment is medically necessary as its management by an unskilled/untrained nonprofessional would put this patients foot and overall health at risk. Therefore, debridement to affected nail(s), as described in exam ( T4_ ), was performed exclusively by the physician of record to reduce/remove overall nail length, girth, thickness, subungual debris, and necrotic tissue, by manual and/or electrical means through the use of a nail nipper and/or dremel stylegrinder, to a more viable healthy nail plate or bed tissue 5 nails or fewer in number. Silver nitrate was used for any petechial bleeding as necessary. Definitive antifungal treatment options, both pharmaceutical and surgical, have been reviewed and discussed with the patient. The patient solely prefers the use of intermittent/as needed professional debridement services for their nail condition and understands that additional periodic treatments may be required as necessary to maintain effective symptomatic relief - 01604.?Nail Avulsion:?Location?, Bilateral nail border, TA.?Anesthesia?, was accomplished TOPICALLY with Lidocaine Hydrochloride Jelly 2 percent.?Procedure?A fine sterile elevator was placed between the eponychium, nail fold, and nail plate to separate the structures. A sterile nail splitter, and/or sterile 316 blade, was then used to longitudinally section the nail along its entire length through the eponychium to the area under the nail fold. The offending portion of nail was from the nail bed with a rolling action and then removed with a hemostat. No underlying bone was identified. There was minimal bleeding as hemostasis was achieved through the temporary use of either a digital tourniquet or the aforementioned local with epinephrine. A bacitracin sterile dressing was applied. Local wound aftercare instructions were discussed and dispensed. The patient was informed of both conservative and future surgical procedures to prevent recurrence. Tylenol or Motrin was recommended for pain or discomfort (08925).? * Procedure Codes:?28532 Avuls ion Plate, [place]: [place] [address] DEBRIDE NAIL, 1-5 * Preventive Medicine:? ??Screening/Special Tests:?Fall Risk?Screening:?No falls in the past year ?FALLS: Screening for Future Fall Risk?Have you had any falls with injury in the past year??No * Follow Up:?2 Weeks * Images: * Sign off status: Completed true * Provider:?Melissa Pete DPM Date:?2024 Generated for Girish ross/Milly/Deborah on:?09/18/2024 06:53 AM EDT History and Physical Notes * HPI (History of Present Illness) Category Sub-Category Detail Notes Category Not es Painful Nails Pt States Last PCP Visit: Date:: 06/06/2024 Examination Category Sub-Category Detail Notes Category Not es Ingrown Nail INSPECTION: Reveals nail inc urvation, pain on palpation, groove hypertrophy, groove ischemia, Bilateral nail borders, TA General Examination GENERAL APPEARANCE: Reveals a pleasant, alert, well nourished, well-developed, well hydrated individual, who demonstrates proper attention to hygiene/body habitus, and is in no acute distress, Pt serves as own historian for office visit today ORIENTED: person, place, and t srikanth Nails NAILS are: Elongated, overg rown, dystrophic, lytic, greater than 3mm thick, discolored and friable with crumbly malodorous subungual debris, with pain on palpation, T4
--- OUTSIDE RECORDS SUMMARY | 2024-09-18 06:54 | XMS_ITS | Patient Health Record ---
[facility] Address [address] [facility] [place] [address] Care Team Providers Care Air Conditioning Engineer Name Role Phone Juan C Fuentes Primary Care Provider Unav ailable Melissa Pete Unavailable [phone] Reason For Referral No Information Medications Medication SIG (Take, Route, Frequency, Duration) Notes Start Date End Date Status Bumetanide 0.5 MG 1 tablet Orally Once a day for 30 day(s) Not-Taking Norvasc Active Lasix 20 MG 1 tablet Orally Once a day Active Sertraline HCl 25 MG 1 tablet Orally Onc e a day Not-Taking Doxazosin Mesylate 1 MG 1/2 tablet Orall y Once a day Not-Taking [place] Thyroid 60 MG 1 tablet Orally Onc [...] . . for . 08/14/2013 Not-T aking Immunizations Vaccine Route Administration Date Status Comme [...] ast year? No Points 0 Interpretation Negative Problems Problem Type SNOMED Code ICD Code Onset Dates Problem Status W/U Status Risk Notes Problem Localized, primary osteoarthritis of the ankle and/or foot (441680160) Primary osteoarthritis, 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 confirmed Problem Ulcer of foot (14707703) Non-pressure chronic ulcer of other part of left foot limited to breakdown of skin (L97.521) Active confirmed Problem Acquired deformity of left foot (6282517896481318 4) 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) Active confirmed Vital Signs Blood pressure diastolic 70 mm Hg 08/27/2024 Height 5 ft 3 in in 08/27/2024 Blood pressure systolic 180 mm Hg 08/27/2024 Weight 128 lbs 08/27/2024 BMI 22.67 kg/m2 08/27/2024 Procedures Procedure Date Ordered Date Performed Result Body Sit e 18213-YYDNHNY NAIL, 1-5 01/03/2024 N/A 30035-MPOTILO NAIL, 1-08/27/2024 N/A 44002-Xjyjrcyc Plate 08/27/2024 N/A Encounters Encounter Location Date Provider Diagnosis [address] [address] 01/03/2024 Melissa Black Sprain of anterior talofibular ligament of left ankle, initial encounter S93.492A ; Tinea unguium B35.1 ; Pain in right toe(s) M79.674 ; Pain in left toe(s) M79.675 ; Pain in left foot M79.672 ; Peroneal tendinitis of left lower extremity M76.72 and Acute left ankle pain M25.[address] [address] 04/24/2024 Melissa Black Tinea unguium B35.1 ; Pain in right toe(s) M79.674 ; Pain in left toe(s) M79.675 ; Pain in left foot M79.672 and Peroneal tendinitis of left lower extremity M76.72 [facility] [address] [address] 08/27/2024 Melissa Black Ingrown nail L60.0 ; Onychomycosis B35.1 and Pain in left toe(s) M79.675 Assessments Encounter Date Diagnosis (ICD Code) Assessment Notes Treatment Notes Treatment Clinical Notes Section Notes 08/27/2024 Ingrown nail (ICD-10 - L60.0) 08/27/2024 Onychomycosis (ICD-10 - B35.1) 01/03/2024 Tinea unguium (ICD-10 - B35.1) 01/03/2024 Sprain of anterior talofibular ligament of left ankle, initial encounter (ICD-10 - S93.492A) Response to treatment - Improvement 04/24/2024 Tinea unguium (ICD-10 - B35.1) 04/24/2024 Pain in right toe(s) (ICD-10 - M79.674) 04/24/2024 Pain in left toe(s) (ICD-10 - M79.675) 01/03/2024 Pain in right toe(s) (ICD-10 - M79.674) 08/27/2024 Pain in left toe(s) (ICD-10 - M79.675) 01/03/2024 Pain in left toe(s) (ICD-10 - M79.675) 04/24/2024 Pain in left foot (ICD-10 - M79.672) 04/24/2024 Peroneal tendinitis of left lower extremity (ICD-10 - M76.72) Response to treatment - cont. Improvement 01/03/2024 Pain in left foot (ICD-10 - M79.672) 01/03/2024 Peroneal tendinitis of left lower extremity (ICD-10 - M76.72) Response to treatment - Improvement 01/03/2024 Acute left ankle pain (ICD-10 - M25.572) Plan Of Treatment Pending Test Test Name Order Date X ray : Foot, right 2V 09/18/2013 Tc99 3 phase Bone Scan 08/08/2013 X ray : Foot, left 3V 03/22/2022 10348-ORQZQAL NAIL, 1-5 01/10/2023 96042-BTRCDKN NAIL, -5 05/03/2023 17088-NSJUAZQ NAIL, -09/13/2023 33252-FYHZGRJ NAIL, -01/03/2024 16805-ITLZNHN NAIL, -09/13/2022 39469-WVJZIIP NAIL, -05/17/2022 45797-SWOGMJR NAIL, -02/23/2021 99089-GIHXMDQ NAIL, -05/08/2020 33643-CEYCFHJ NAIL, -11/05/2019 23226-PGPCZXW NAIL, -08/27/2024 45321-OKEPQHS NAIL, -11/18/2020 41910-GTSUOMB NAIL, -12/28/2018 13094-CFZYRYO NAIL, -10/10/2014 20013-PAUNXES NAIL, -08/13/2015 03103-PVPUISR NAIL, -12/10/2015 42853-JWWWSTT NAIL, -04/05/2019 20126-LESARHO NAIL, -07/10/2019 41680-UBMZLZD NAIL, -02/07/2020 52206-AFEBVJX NAIL, -09/14/2018 47664-NOUBFYB NAIL, -08/14/2020 92594-XWQEPIC NAIL, -06/01/2021 07065-VUWVNZA NAIL, -09/08/2021 54961-GSRFCLU NAIL, -01/11/2022 79464-AYXHVSP NAIL, -09/02/2013 45902-UEQIDRP NAIL, -05/18/2018 84031-XILJJSV NAIL, -02/16/2018 03121-OSZRRBF NAIL, -11/17/2017 11534-GPCAMSD NAIL, -04/14/2015 70808-Wuysvrbq Plate 11/29/2013 26931-Bobrrvdf Plate 09/02/2013 20882-Rjoliurt Plate 07/02/2014 34040-Fbhgnlzl Plate 01/11/2022 83362-Odlmoefe Plate 04/05/2019 44209-Tmakjtxz Plate 08/14/2020 01916-Mfvrpgzo Plate 01/05/2016 84617-Fguusama Plate 12/10/2015 44102-Avuprvhd Plate 12/28/2018 83990-Orkbjznx Plate 05/18/2018 78281-Cuiogvey Plate 11/05/2019 93419-Acqtrtwq Plate 02/23/2021 83502-Gvdkqrzf Plate 08/27/2024 42357-Efbfqjde Plate Each Additional 67142- Debride <25 sq cm 09/08/2021 Next Appt Details Provider Name:Melissa Pete , 11/26/2024 02:00:00 PM, [address] [facility], [place], [address], Insurance Providers Payer Name Payer Address Payer Phone Subscriber Number Group Number Insured Name Patient Relationship to Insured Coverage Start Date Coverage End Date Medicare [employer] [address] [facility] [place] [address] [id number] Naomy Hyman Self - patient is the insured [facility] [address] [place] [address] [id number] Naomy Hyman Self - patient is the insured Medical (General) History Medical History History ICD Code Arthritis back, hip, knee pain high blood pressure osteoporosis thyroid disorder mumps measles chicken pox Surgical History Surgery Date(Month/Year) appendectomy inguinal hernia repair tubal ligation Cataract sx 04/2022
--- OUTSIDE RECORDS SUMMARY | 2024-09-18 06:54 | XMS_ITS ---
Author Organization [facility] Address [address] [facility] [place] [address] Care Team Providers Care Application Helper Name Role Phone Juan C Fuentes Primary Care Provider Unav ailable Black, Melissa Unavailable [phone] REASON FOR VISIT Painful thick toenails which [...] Manage Prod 25 as directed Orally Active [place] Thyroid 60 MG 1 tablet Orally Onc [...] 024 Encounters Encounter Location Date Provider Diagnosis [facility] [address] [address] 04/24/2024 Melissa Pete Tinea unguium B35.1 ; [...] Details Follow Up: prn, Reason: Provider Name:Melissa Jaffe Juan R , 11/26/2024 02:00:00 PM, [address] [facility], [place], [address], Progress Notes * Naomy BLACK LDOB:1945 (78 yo F)Acc No.[id number]:04/24/2024 Progress Note Patient:?Naomy Black Provider:?Melissa Pete DPM :1945???Age:78 Y???Sex:Female D ate:04/24/2024 Address:[address] [place] [address] [place], [place] Pcp:BINH Zazueta Subjective: * Chief Complaints: * [...] Manage Prod 25 Miscellaneous as directed Orally [place] Thyroid 60 MG Tablet 1 tablet Orally Once a dayTaking Lasix 20 MG Tablet 1 tablet Orally Once a dayTaking Lisinopril 40 MG Tablet 1 tablet Orally Once a dayTaking Metoprolol & Diet Manage Prod 25 Miscellaneous as directed Orally Taking [place] Thyroid 60 MG Tablet 1 tablet Orally [...] Pete DPM Date:?2023 Generated for Girish ross/Milly/Deborah on:?09/18/2024 06:53 AM [...]
--- OUTSIDE RECORDS SUMMARY | 2024-09-18 06:54 | XMS_ITS ---
Author Organization [facility] Address [address] [place] [address] Care Team Providers Care Small Business Representative Name Role Phone Juan C Fuentes Primary Care Provider Unav ailable Melissa Pete [phone] Encounters Encounter Location Date Provider Diagnosis [address] [address] 08/28/2024 Melissa Pete Plan Of Treatment Next Appt Details Provider Name:Melissa Jaffe Juan R , 11/26/2024 02:00:00 PM, [address] [facility], [place], [address], Progress Notes * Naomy BLACK LDOB:1945 (79 yo F)Acc No.[id number]:08/28/2024 Progress Note Patient:?Naomy BLACK Provider:?Melissa Pete DPM :1945???Age:79 Y???Sex:Female D ate:08/28/2024 Address:[address], [place] Pcp:BINH Zazueta Subjective: * Chief Complaints: * ??? * Medical History:? Objective: * Vitals:? Assessment: Plan: * Treatment: * Images: * The named appointment provid er may or may not be the originator of this progress note, and it is not deemed complete until electronically signed by the appointment provider. Sign off status: Pending * Provider:Rivera Pete DPM Date:?2024 Generated for Girish ross/Milly/Cecilyitting on:?09/18/2024 06:53 AM EDT
[2024-09-18 10:18] LABS: MANUAL DIFF FLAG NO
[2024-09-18 10:23] LABS: Basophils Absolute Auto 0.1 X10*3/uL (0.0-0.2); Basophils Percent Auto 1.2 % (0-2); Eosinophils Absolute Auto 0.2 X10*3/uL (0.0-0.4); Eosinophils Percent Auto 4.1 % (0-4); Hematocrit 43.3 % (37.0-47.0); Hemoglobin 13.5 g/dl (12.0-16.0); Imm Gran Abs Auto 0.01 X10*3/uL (0.00-0.03); Imm Gran Pct Auto 0.2 % (0.0-0.4); Lymphocytes Absolute Auto 1.7 X10*3/uL (1.2-4.9); Lymphocytes Percent Auto 34.6 % (20-40); Mean Corpuscular HGB Conc 31.2 g/dl (31.0-35.0); Mean Corpuscular Hemoglobin 28.5 pg (27.0-33.0); Mean Corpuscular Volume 91.5 fL (80.0-98.0); Mean Platelet Volume 10.2 fL (9.4-12.3); Monocytes Absolute Auto 0.5 X10*3/uL (0.1-1.2); Neutrophils Absolute Auto 2.4 x10*3/uL (2.0-8.3); Neutrophils Percent Auto 48.9 % (45-73); Platelet Count 220 X10*3/uL (160-400); Red Blood Count 4.73 X10*6/uL (4.20-5.50); Red Cell Distribution Width 13.5 % (11.0-16.0); White Blood Count 4.8 X10*3/uL (4.8-10.8)
[2024-09-18 10:27] LABS: Appearance Urine Clear; Color Urine Straw; Glucose Urine UA Negative (Negative); Leukocyte Esterase Urine Negative (Negative); Nitrite Urine Negative (Negative); PH 6.5 (5.0-9.0); Urine Blood Negative (Negative); Urine Ketones Negative (Negative); Urine Protein Negative (Neg-Trace)
[2024-09-18 11:41] LABS: Alanine Aminotransferase 10 U/L (0-31); Albumin Level 4.1 g/dL (3.5-5.0); Alkaline Phosphatase 64 U/L (39-117); Anion Gap 10 (12-20); Aspartate Amino Transferase 21 U/L (5-31); Bilirubin Total 0.5 mg/dL (0.0-1.0); Blood Urea Nitrogen 31 mg/dL (9-16); Calcium 9.5 mg/dL (8.4-10.2); Carbon Dioxide 27 mmol/L (22-29); Chloride 109 mmol/L (96-108); Cholesterol 186 mg/dL (<200); Estimated Glomerular Filt Rate 56; Glucose Fasting 107 mg/dL (60-99); HDL Cholesterol 74 mg/dL (>40); LDL Cholesterol Calculated 102 mg/dL (<100); Potassium 3.9 mmol/L (3.3-5.1); Sodium 142 mmol/L (135-145); Total Protein 6.7 g/dL (6.5-8.0); Triglycerides 53 mg/dL (<150)
[2024-09-18 11:43] LABS: TSH reflex Free T4 2.87 uIU/mL (0.32-4.0); Vitamin D 25-OH Total 103.8 ng/mL (>30)
== END 2024-09-18 06:51 | disposition home or self-care (01) ==
LOC: HO.HMGCLDS 06:50
PROVIDERS: PCP Nurse Practitioner Family; Visit Provider Nurse Practitioner Family
DX: I10 Essential (primary) hypertension (principal); E55.9 Vitamin D deficiency, unspecified
CPT/HCPCS: 36415; 80053; 80061; 81003; 82306; 84443; 85025

== ENCOUNTER 2024-09-23 08:39 | Outpatient (AMB) | payer MEDICARE, BC, SELFPAY ==
[2024-09-23 08:44] VITALS: BP 160/90; PULSE 73; O2SAT 96; BMI 22.7
--- NOTE | 2024-09-23 08:44 | AM.OFFVISMDC ---
Intake Vital Signs 09/23/24 08:44 09/23/24 09:38 Height 5 ft 4 in Weight 132 lb BMI 22.7 BP 160/90 H 150/70 H Blood Pressure Location Lt brachial Lt brachial Position Sitting Sitting Pulse 73 Pulse Source Pulse Oximeter Pulse Oximetry (%) 96 Oxygen Delivery Method Room Air Intake Visit Reasons: SEKOU G0439 Dock Superintendent Required: No Accompanied by: Self / Same As Patient Allergies adhesive tape Allergy (Unknown, Verified 09/23/24 09:33) hives amlodipine [From Norvasc] Allergy (Unknown, Verified 09/23/24 09:33) Swelling od hands/feet bacitracin [From Cortisporin] Allergy (Unknown, Verified 09/23/24 09:33) Eye irritation brompheniramine [From Dimetapp Cold-Allergy (PE)] Allergy (Unknown, Verified 09/23/24 09:33) Body Rash calcium [From DHEA] Allergy (Unknown, Verified 09/23/24 09:33) Unknown calcium carbonate [From DHEA] Allergy (Unknown, Verified 09/23/24 09:33) Unknown cefaclor Allergy (Unknown, Verified 09/23/24 09:33) Perineum rash chlorpheniramine [From Fedahist] Allergy (Unknown, Verified 09/23/24 09:33) Body Rash clindamycin Allergy (Unknown, Verified 09/23/24 09:33) GI upset/pain/vomiting devil's claw Allergy (Unknown, Verified 09/23/24 09:33) unsure reaction dexbrompheniramine [From Drixoral] Allergy (Unknown, Verified 09/23/24 09:33) Body Rash diphenhydramine [From Benadryl] Allergy (Unknown, Verified 09/23/24 09:33) Body Rash doxazosin Allergy (Unknown, Verified 09/23/24 09:33) Extreme anxiety erythromycin base Allergy (Unknown, Verified 09/23/24 09:33) Perineum rash garlic Allergy (Unknown, Verified 09/23/24 09:33) Unknown gentamicin [From Garamycin] Allergy (Unknown, Verified 09/23/24 09:33) [eye drops] Eye swelling ginkgo biloba Allergy (Unknown, Verified 09/23/24 09:33) piercing pain in head guaifenesin [From Fedahist] Allergy (Unknown, Verified 09/23/24 09:33) Body Rash hydralazine Allergy (Unknown, Verified 09/23/24 09:33) Swelling of feet/legs hydrochlorothiazide Allergy (Unknown, Verified 09/23/24 09:33) Itchy palms hydrocortisone [From Cortisporin] Allergy (Unknown, Verified 09/23/24 09:33) Eye irritation meclizine Allergy (Unknown, Verified 09/23/24 09:33) very dry mouth methylsulfonylmethane [From MSM] Allergy (Unknown, Verified 09/23/24 09:33) Itchy palms nebivolol [From Bystolic] Allergy (Unknown, Verified 09/23/24 09:33) Swelling of feet/ legs neomycin [From Cortisporin] Allergy (Unknown, Verified 09/23/24 09:33) Eye irritation nifedipine [From Procardia] Allergy (Unknown, Verified 09/23/24 09:33) Swelling of feet and legs nut - unspecified Allergy (Unknown, Verified 09/23/24 09:33) mouth sores Peanut Butter Allergy (Unknown, Verified 09/23/24 09:33) mouth sores penicillin V Allergy (Unknown, Verified 09/23/24 09:33) Body rash Penicillins Allergy (Unknown, Verified 09/23/24 09:33) body rash phenylephrine [From Dimetapp Cold-Allergy (PE)] Allergy (Unknown, Verified 09/23/24 09:33) Body Rash polymyxin B [From Cortisporin] Allergy (Unknown, Verified 09/23/24 09:33) Eye irritation prasterone (DHEA) [From DHEA] Allergy (Unknown, Verified 09/23/24 09:33) Unknown propoxyphene [From Darvon] Allergy (Unknown, Verified 09/23/24 09:33) Unknown pseudoephedrine [From Drixoral] Allergy (Unknown, Verified 09/23/24 09:33) Body Rash shellfish derived Allergy (Unknown, Verified 09/23/24 09:33) itchy body Sulfa (Sulfonamide Antibiotics) Allergy (Unknown, Verified 09/23/24 09:33) Itchy palms sulfamethoxazole [From Bactrim] Allergy (Unknown, Verified 09/23/24 09:33) itchy palms trimethoprim [From Bactrim] Allergy (Unknown, Verified 09/23/24 09:33) itchy palms Macrolide Antibiotics Allergy (Verified 09/23/24 09:33) Unknown prednisone Allergy (Verified 09/23/24 09:33) Flushing tetracycline Allergy (Verified 09/23/24 09:33) Unknown Carditone Allergy (Unknown, Uncoded 09/23/24 09:33) Swelling of feet/legs; itchy body Medication List - Last Reconciled 09/23/24 by Juan C Skelton, [employer]- amlodipine 5 mg PO DAILY furosemide 30 mg (1.5 x 20 mg) PO DAILY 90 days lisinopril 40 mg PO DAILY 90 days metoprolol succinate ER 100 mg PO DAILY 90 days thyroid (pork) ([place] Thyroid) 60 mg PO DAILY HPI SWV G0439 HPI Details AWV: PPP in scan pile, CCC in scan pile Chief Complaint Blood pressures are starting to look better, more in the 120s, 130s systolically at home. History of Present Illness The patient is a 79-year-old female presenting with hypertension follow-up. She has a documented history of essential hypertension and has been actively monitoring her blood pressures at home. Recently, there has been an observable improvement in her blood pressure levels, with systolic readings consistently in the range of 120s to 130s. The patient reports no incidents of chest pain, shortness of breath, or abdominal pain. Furthermore, she denies experiencing dizziness, blurred vision, or headaches, suggesting stability in her condition and the absence of new or exacerbating symptoms. Social History Health Maintenance Review of Systems - Cardiovascular: Denies chest pain. - Respiratory: Denies shortness of breath. - Gastrointestinal: Denies abdominal pain. - Neurological: Denies dizziness, blurred vision, headaches. Physical Exam General: Cooperative, healthy appearing, comfortable, no acute distress and well developed Orientation: Patient oriented x3 Limitations: No limitations Head: Normal to inspection Ears: Hearing grossly normal bilaterally Nose: Normal external nose present Face and sinus: Normal facial exam Eyes: Appearance normal, both eyes and all related structures Neck: Normal visual inspection and Yes full ROM Respiratory: Normal respiratory effort and able to speak in complete sentences. Clear to auscultation bilaterally Cardiovascular: Regular rate and rhythm. Normal S1 and S2, systolic murmur sGI: Normal to inspection. Soft to palpation and nontender Skin: No rashes or lesions noted Neuro: Patient oriented x3 Extremities: Normal to inspection Results Plan The plan for managing essential hypertension involves continued home monitoring of blood pressure, with maintenance of current medication regimen as recent readings indicate improvement. Lifestyle interventions, including diet and exercise, should be emphasized to support better blood pressure control. The patient is encouraged to log her blood pressure values and watch for any significant changes. We will focus on low sodium intake and maintaining a healthy body weight. Continued surveillance of symptoms and blood pressure levels to ensure they remain within target is essential. No further diagnostics or medication adjustments were discussed at this time. Discussion Notes During our discussion, I explained to the patient that her hypertension management seems to be progressing well, with recent blood pressure readings indicating improvement. I emphasized the importance of continuing her current medication regimen and incorporating lifestyle modifications, such as dietary changes and regular physical activity. We discussed the benefits of maintaining a low-sodium diet and engaging in physical exercise to further aid blood pressure control. The patient was advised to keep a detailed log of her blood pressure readings and report any significant shifts. There were no additional diagnostic studies or changes in medications considered necessary during this visit. Patient Instructions - Continue monitoring your blood pressure at home as you have been doing. - Maintain your current medication regimen unless directed otherwise. - Focus on adopting lifestyle changes, including a low-sodium diet and regular physical exercise. - Keep a log of your blood pressure readings and inform me of any significant changes. - Maintain a healthy body weight. - Watch for any new symptoms, such as chest pain or dizziness, and report these immediately. [facility] Medical History Fall Dyslipidemia Colonoscopy refused Osteoporosis Hypothyroid HTN (hypertension) Aortic insufficiency Osteopenia CKD (chronic kidney disease) stage 3, GFR 30-59 ml/min Mitral valve disorder Surgical History History of breast biopsy History of tubal ligation Family History Father No problems noted. Mother Pancreatic cancer [facility] Patient Tobacco Use Status: Former Tobacco user Years Smoked: 50 years ago e-Cigarette/Vaping Use: Never Used Second Hand Smoke Exposure: No service: No Current occupational status: retired Cognitive needs: No Hearing needs: No Vision needs: No Questionnaire Medicare Wellness Checkup What [age] What gender do you identify with?: female During the past 4 weeks, how much have you been bothered by emotional problems such as feeling anxious, depressed, irritable, sad or downhearted, and blue?: moderately During the past 4 weeks, has your physical & emotional health limited your social activities with family, friends, neighbors, or groups?: not at all During the past 4 weeks, how much bodily pain have you generally had?: mild pain During the past 4 weeks, was someone available to help you if you needed & wanted help?: yes, as much as I wanted During the past 4 weeks, what was the hardest physical activity you could do for at least 2 minutes?: moderate Can you get to places out of walking distance without help? (For eg., can you travel alone on buses, taxis or drive your car?): Yes Can you go shopping for groceries or clothes without someone's help?: Yes Can you prepare your own meals?: Yes Can you do your housework without help?: Yes Because of any health problems, do you need the help of another person with your personal care needs such as eating, bathing, dressing or getting around the house?: No Can you handle your own money without help?: Yes During the past 4 weeks, how would you rate your health in general?: very good During the past 4 weeks how have things been going for you?: pretty well Are you having difficulties driving your car?: no Do you always fasten your seat belt when you are in a car?: yes, usually During past 4 weeks, have you been bothered by the following: never: Sexual problems?, Trouble eating well?, Teeth or denture problems? and Problems using the telephone? and seldom: Falling or dizzy when standing up and Tiredness or fatigue? Have you fallen 2 or more times in the past year?: No Are you afraid of falling?: Yes Are you a smoker?: no During the past 4 weeks, how many drinks of wine, beer, or other alcoholic beverages did you have?: no alcohol at all Do you exercise for about 20 minutes 3 or more times a week?: yes, all the time Have you been given information to help with the following?: yes: Hazards in your house that might hurt you? and no: Keeping track of your medications? How often do you have trouble taking medicines the way you have been told to take them?: I always take medicine as prescribed How confident are you that you can control & manage most of your health problems?: very confident What is your race?: White Mini Mental State Exam (MMSE) Orientation What is the (year) (season) (date) (day) (month)?: year, season, date, day and month Where are we (state) (county) (town or city) (hospital) (floor)?: state, county, town or city, hospital/clinic and floor Registration Name of 3 unrelated objects clearly and slowly, then ask patient to repeat all 3 of them. (1st repeat determines score. Make sure they can repeat all three): object 1, object 2 and object 3 Attention & Calculation (CHOOSE ONE) Spell WORLD backwards (DLROW): 5 letters Recall Ask patient to repeat the 3 items from question #3.: object 1, object 2 and object 3 Language Show patient a wristwatch & ask what it is. Repeat for pencil.: watch Ask the patient to repeat the phrase 'No ifs, ands, or buts' after you.: correct Ask the patient to 'take a piece of paper with their right hand' 'fold paper in half' 'place paper on floor': take paper in right hand, fold paper in half and place paper on floor Print the sentence 'CLOSE YOUR EYES' on a piece. If patient actually closes eyes then score.: followed written direction Give patient a blank piece of paper & ask to write a sentence. Score if it contains a noun & verb.: sentence contains subject and verb Ask patient to copy figure of intersecting pentagons exactly. Score if all 10 angles & 2 intersects are included.: all 10 angles present & 2 are intersected Score Score: 29 Activity of Daily Living Bathing - sponge bath, tub bath or shower: receives no assistance (gets in/out by self, if usual bathing means Dressing - getting clothes from closets & drawers, including inner/outer garments & fasteners.: gets clothes & gets completely dressed without help Toileting - going to the 'toilet room' for urine/bowel elimination & cleaning self/arranging clothes: goes to toilet room, cleans self, arranges clothes without help Transfer: moves in & out of bed and chair without help (may use support object) Continence: controls urination/bowel movements completely by self Feeding: feeds self without help Total Score: 0 Information obtained from: patient Using telephone: independent Traveling: independent Shopping: independent Preparing meals: independent Housework: independent Taking medicine: independent Managing money: independent PHQ-9 Over the last 2 weeks, how often have you been bothered by any of the following problems? 1. Little interest or pleasure in doing things: not at all 2. Feeling down, depressed, or hopeless: not at all 3. Trouble falling or staying asleep, or sleeping too much: several days 4. Feeling tired or having little energy: several days 5. Poor appetite or overeating: not at all 6. Feeling bad about yourself - or that you are a failure or have let yourself or your family down: not at all 7. Trouble concentrating on things, such as reading the newspaper or watching television: not at all 8. Moving or speaking so slowly that other people could have noticed. Or the opposite - being so fidgety or restless that you have been moving around a lot more than usual: not at all 9. Thoughts that you would be better off or of hurting yourself in some way: not at all Total score: 2 Depression Screening Interpretation: Negative Depression Screening Done: Yes 48346 - PHQ-9 Billing: Yes Source: Developed by Drs. Maximiliano Sumner, Ekaterina Khan, Ar Del Cid and colleagues, with an educational meagan from [employer]. CHASITY-7 AMB Questionnaire CHASITY-7 Date CHASITY - 7 assessed: 09/23/24 Feeling nervous, anxious, or on edge: 1 = Several days Not being able to stop or control worryin = Not at all Worrying too much about different things: 1 = Several days Trouble relaxin = Several days Being so restless that it is hard to sit still: 0 = Not at all Becoming easily annoyed or irritable: 0 = Not at all Feeling afraid as if something awful might happen: 0 = Not at all Total CHASITY-7 score (0-4 normal; 5-9 mild; 10-14 moderate; 15-21 severe): 3 Source: Developed by Drs. Maximiliano Sumner, Ekaterina Khan, Ar Del Cid and colleagues, with an educational meagan from [employer]. CHASITY-7 Assessment Billing CHASITY-7 Assessment Tool: CHASITY-7 Assessment 00805 Physical Exam Vital Signs: Last Vital Signs Pulse 73 09/23/24 08:44 BP 160/90 H 09/23/24 08:44 Pulse Ox 96 09/23/24 08:44 Oxygen Delivery Method Room Air 09/23/24 08:44 BMI result Body Mass Index 22.7 Immunizations Boostrix Tdap 2.5 Lf unit-8 mcg-5 Lf/0.5 mL intramuscular syringe Performing Provider: ANGIE Baumann Performing Location: [facility] Administered by: Percy Syed CMA on 09/23/24 09:39 Dose Route Admin Location Dispensed Lot Number Expiration Date [facility] Shook Machine Operator 0.5 mL IM Left Deltoid 0.5 mL [id number] 10/05/26 81427-086-15 [employer] VIS Given Date VIS Provided VIS Publication Date 09/23/24 Single Vaccine 21 Eligibility Eligibility Date Funding Source Not [facility] Eligible 09/23/24 Private Assessment & Plan Assessment & Plan (1) Encounter for subsequent annual wellness visit in Medicare patient: Code(s): Z00.00 - Encounter for general adult medical examination without abnormal findings (2) Hypertension: Code(s): I10 - Essential (primary) hypertension Qualifiers: Hypertension type: essential hypertension Qualified Code(s): I10 - Essential (primary) hypertension Plan . Quality Reporting (2019) Depression/Bipolar (159/160/161/177) PHQ-9: Total score: 2 Coding Level of Care Code Medicare Subsequent (G0439) Est Pt Level 3 (66513) Diagnoses Encounter for subsequent annual wellness visit in Medicare patient Z00.00 Essential hypertension I10 Hypertension type: essential hypertension CPT Codes Advance Care Planning - Time spent: 1-15 minutes, on File ([id number]) Additional Codes CHASITY-7 Assessment Billing - CHASITY-7 Assessment Tool: CHASITY-7 Assessment 21397 ([id number]) PHQ-9 - 75553 - PHQ-9 Billing: Yes ([id number]) Advance Care Planning Forms completed: Health Care Proxy (done), MOLST (form given to pt) and Living will (done, according to pt) Time spent: 1-15 minutes, on File Actual minutes spent: 8
--- OUTSIDE RECORDS SUMMARY | 2024-09-23 09:16 | XMS_ITS | Clinical Summary ---
Author Organization [facility] Address [address] [place] [address] [place] [address] Phone Care Team Providers Care Doctor Chiropractic Name Role Phone Unavailable Primary Care Provider Unavailabl e Allergies Active Allergy Reactions Criticality Noted Date Comments Adhesive Tape 10/22/2020 Amlodipine 10/22/2020 Bacitracin 10/22/2020 Sulfamethoxazole-Trimethoprim Other (see comments) 10/22/2020 Penicillin G Benzathine Rash Low 10/22/2020 Brompheniramine 10/22/2020 Calcium 10/22/2020 Calcium Carbonate 10/22/2020 Cefaclor 10/22/2020 Chlorpheniramine 10/22/2020 Clindamycin Other (see comments) 10/22/2020 Nlqlioa-Jykuuimh-Foqlvihii-Hc Other (see comments) 06/01/2021 Propoxyphene 10/22/2020 Dexbrompheniramine 10/22/2020 Chlorpheniramine-Dm Other (see comments) 2020 Diphenhydramine Other (see comments) 10/22/2020 Doxazosin 10/22/2020 Dexbrompheniramine-Pseudoeph Other (see comments) 06/01/2021 Erythromycin 10/22/2020 Gentamicin 10/22/2020 Garlic 10/22/2020 Ginkgo Biloba 10/22/2020 Guaifenesin 10/22/2020 Hydralazine 10/22/2020 Hydrochlorothiazide Other (see comments) 2020 Hydrocortisone 10/22/2020 Latex Other (see comments) 06/01/2021 Meclizine 10/22/2020 Methylsulfonylmethane 10/22/2020 Rzqetpkufowmzgw-Dk-Cknn Other (see comments) Nebivolol 10/22/2020 Nebivolol Hcl [...] of 2 - PCV) 1951 Influenza Vaccine (Season Ended) 2025 Hepatitis B Vaccine Aged Out No longe r eligible based on patient's age to complete this topic Insurance MEDICARE [facility] [place] [address] MEDICARE [facility]
--- OUTSIDE RECORDS SUMMARY | 2024-09-23 09:16 | XMS_ITS | Clinical Summary ---
Author Organization [facility] Address [address] [place] [address] Phone Care Team Providers Care Can Closing Machine Operator Name Role Phone Juan C Skelton NP Primary Care Provider [phone] Surgical History Surgery Date Site/Laterality Comments STEREOTACTIC [...] or Tdap) 11/12/2019 11/11/2009, 10/21/2009 RSV Immunization Adult Patients (1 - 1-dose 75+ series) 2020 Depression Screening 05/22/2022 Falls Risk Assessment 05/22/2022 Hepatitis C Screening 05/22/2022 Medicare Annual Wellness Visit 05/22/2022 Osteoporosis Screening (Bone Density Screening) 05/22/2022 Social Influencers of Health Screening 05/22/2022 COVID-19 Vaccine (3 - 2023-2 5 season) 2024 03/16/2021, 09/15/2020 Influenza [...] age to complete this topic Insurance MEDICARE [facility] Care Teams Can Closing Machine Operator Relationship Specialty Start Date End Date Juan C Skelton NETWORK COORDINATOR PCP - General Family Medicine 05/27/24
--- OUTSIDE RECORDS SUMMARY | 2024-09-23 09:16 | XMS_ITS ---
Author Organization [facility] Address [address] [place] [address] Care Team Providers Care Director Digital Marketing Name Role Phone Juan C Fuentes Primary Care Provider Unav ailable Melissa Pete [phone] Encounters Encounter Location Date Provider Diagnosis [address] [address] 08/28/2024 Melissa Pete Plan Of Treatment Next Appt Details Provider Name:Melissa Jaffe Juan R , 11/26/2024 02:00:00 PM, [address] [facility], [place], [address], Progress Notes * Naomy BLACK LDOB:1945 (79 yo F)Acc No.[id number]:08/28/2024 Progress Note Patient:?Naomy BLACK Provider:?Melissa Pete DPM :1945???Age:79 Y???Sex:Female D ate:08/28/2024 Address[address], [place] Pcp:BINH Zazueta Subjective: * Chief Complaints: * ??? * Medical History:? Objective: * Vitals:? Assessment: Plan: * Treatment: * Images: * The named appointment provid er may or may not be the originator of this progress note, and it is not deemed complete until electronically signed by the appointment provider. Sign off status: Pending * Provider:Rivera Pete DPM Date:?2024 Generated for Girish ross/Milly/Cecilyitting on:?09/23/2024 09:16 AM EDT
--- OUTSIDE RECORDS SUMMARY | 2024-09-23 09:16 | XMS_ITS ---
Author Organization [facility] Address [address] [place] [address] Care Team Providers Care Director Of Business Continuity Name Role Phone Juan C Fuentes Primary Care Provider Unav ailable Black, Melissa Unavailable [phone] REASON FOR VISIT Painful thick toenails which [...] Manage Prod 25 as directed Orally Active [place] Thyroid 60 MG 1 tablet Orally Onc [...] 024 Encounters Encounter Location Date Provider Diagnosis [facility] [address] [address] 04/24/2024 Melissa Pete Tinea unguium B35.1 ; [...] Juan R , 11/26/2024 02:00:00 PM, [address] [facility], [place], [address], Progress Notes * Naomy BLACK LDOB:1945 (78 yo F)Acc No.[id number]:04/24/2024 Progress Note Patient:?Naomy Black Provider:?Melissa Pete DPM :1945???Age:78 Y???Sex:Female D ate:04/24/2024 Address:[address] [place] [address] [place] [place] Pcp:BINH Zazueta Subjective: * Chief Complaints: * [...] Manage Prod 25 Miscellaneous as directed Orally [place] Thyroid 60 MG Tablet 1 tablet Orally Once a dayTaking Lasix 20 MG Tablet 1 tablet Orally Once a dayTaking Lisinopril 40 MG Tablet 1 tablet Orally Once a dayTaking Metoprolol & Diet Manage Prod 25 Miscellaneous as directed Orally Taking [place] Thyroid 60 MG Tablet 1 tablet Orally [...] Pete DPM Date:?2023 Generated for Girish ross/Milly/Deborah on:?09/23/2024 09:16 AM EDT History and Physical Notes * [...]
--- OUTSIDE RECORDS SUMMARY | 2024-09-23 09:16 | XMS_ITS ---
Author Organization [facility] Address [address] [facility] [place] [address] Care Team Providers Care Mental Health Unit Lead Psychologist Name Role Phone Juan C Fuentes Primary Care Provider Unav ailable Black, Melissa Unavailable [phone] REASON FOR VISIT Ingrown Nail, Painful nail(s) aggravated by shoes causing difficulty standing/walking Medications Medication SIG (Take, Route, Frequency, Duration) Notes Start Date End Date Status [place] Thyroid 60 MG 1 tablet Orally Onc [...] Ordered Date Performed Result Body Sit e 63023-EZVOOCU NAIL, 1-5 08/27/2024 N/A 33247-Lejnhyvt Plate 08/27/2024 N/A Encounters Encounter Location Date Provider Diagnosis [facility] [place] [address] [place] [address] 08/27/2024 Melissa Pete Ingrown nail L60.0 ; Onychomycosis B35.1 and Pain in left toe(s) M79.675 Assessments Encounter Date Diagnosis (ICD Code) Assessment Notes Treatment Notes Treatment Clinical Notes Section Notes 08/27/2024 Ingrown nail (ICD-10 - L60.0) 08/27/2024 Onychomycosis (ICD-10 - B35.1) 08/27/2024 Pain in left toe(s) (ICD-10 - M79.675) Plan Of Treatment Pending Test Test Name Order Date 92670-UWSWGAX NAIL, 1-08/27/2024 17279-Dapuywrd Plate 08/27/2024 Next Appt Details Follow Up: 2 Weeks, Reason: Provider Name:Melissa Pete , 11/26/2024 02:00:00 PM, [address] [facility], [place], [address], Procedure Notes * Category Sub-Category Detail Notes [...] Motrin was recommended for pain or discomfort (31639) Anesthesia , was accomplished T OPICALLY with [...] necessary to maintain effective symptomatic relief - 52846 Progress Notes * Naomy BLACK LDOB:1945 (79 yo F)Acc No.[id number]:08/27/2024 Progress Note Patient:?Naomy BLACK Provider:?Melissa Pete DPM :1945???Age:79 Y???Sex:Female D ate:08/27/2024 Address: [address], [facility] Pcp:BINH Zazueta Subjective: * Chief Complaints: * [...] Manage Prod 25 Miscellaneous as directed Orally [place] Thyroid 60 MG Tablet 1 tablet Orally Once a day Norvasc Taking Lasix 20 MG Tablet 1 tablet Orally Once a day Taking Lisinopril 40 MG Tablet 1 tablet Orally Once a day Taking Metoprolol & Diet Manage Prod 25 Miscellaneous as directed Orally Taking [place] Thyroid 60 MG Tablet 1 tablet Orally [...] toe(s) - M79.675??? Plan: * Treatment: 2.?Onychomycosis?Procedure: 71265-ZUBUFLE NAIL, 1-5 * Procedures:?Debride Nails 1-5:?Procedure:?Due to [...] necessary to maintain effective symptomatic relief - 42520.?Nail Avulsion:?Location?, Bilateral nail border, TA.?Anesthesia?, was accomplished [...] Motrin was recommended for pain or discomfort (26360).? * Procedure Codes:?29275 Avuls [place] Plate, [place]: [place] [address] DEBRIDE NAIL, 1-5 * Preventive Medicine:? ??Screening/Special Tests:?Fall Risk?Screening:?No falls in the past year ?FALLS: Screening for Future Fall Risk?Have you had any falls with injury in the past year??No * Follow Up:?2 Weeks * Images: * Sign off status: Completed true * Provider:?Melissa Pete DPM Date:?2024 Generated for Girish ross/Milly/Deborah on:?09/23/2024 09:16 AM [...]
--- OUTSIDE RECORDS SUMMARY | 2024-09-23 09:17 | XMS_ITS | Patient Health Record ---
Author Organization [facility] Address [address] [facility] [facility] [place] [address] Care Team Providers Care Cooling Tower Operator Name Role Phone Juan C Fuentes Primary Care Provider Unav ailable Melissa Pete Unavailable [phone] Reason For Referral No Information Medications Medication [...] tablet Orall y Once a day Not-Taking [place] Thyroid 60 MG 1 tablet Orally Onc [...] primary osteoarthritis of the ankle and/or foot (944948049) Primary osteoarthritis, 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 confirmed Problem Ulcer of foot (03568540) Non-pressure chronic ulcer of other part of left foot limited to breakdown of skin (L97.521) Active confirmed Problem Acquired deformity of left foot (9154573183827877 4) 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) Active confirmed Vital Signs Blood pressure diastolic 70 mm Hg 08/27/2024 Height 5 ft 3 in in 08/27/2024 Blood pressure systolic 180 mm Hg 08/27/2024 Weight 128 lbs 08/27/2024 BMI 22.67 kg/m2 08/27/2024 Procedures Procedure Date Ordered Date Performed Result Body Sit e 97340-JHYYJMQ NAIL, 1-5 01/03/2024 N/A 35053-PPXRZRG NAIL, 1-08/27/2024 N/A 14922-Izgaojwk Plate 08/27/2024 N/A Encounters Encounter Location Date Provider Diagnosis [address] [address] 01/03/2024 Melissa Black Sprain of anterior talofibular ligament of left ankle, initial encounter S93.492A ; Tinea unguium B35.1 ; Pain in right toe(s) M79.674 ; Pain in left toe(s) M79.675 ; Pain in left foot M79.672 ; Peroneal tendinitis of left lower extremity M76.72 and Acute left ankle pain M25.[address] [address] 04/24/2024 Melissa Black Tinea unguium B35.1 ; Pain in right toe(s) M79.674 ; Pain in left toe(s) M79.675 ; Pain in left foot M79.672 and Peroneal tendinitis of left lower extremity M76.72 [facility] [address] [address] 08/27/2024 Melissa Black Ingrown nail L60.0 ; Onychomycosis B35.1 and Pain in left toe(s) M79.675 Assessments Encounter Date Diagnosis (ICD Code) Assessment Notes Treatment Notes Treatment Clinical Notes Section Notes 01/03/2024 Tinea unguium (ICD-10 - B35.1) 01/03/2024 Sprain of anterior talofibular ligament of left ankle, initial encounter (ICD-10 - S93.492A) Response to treatment - Improvement 04/24/2024 Tinea unguium (ICD-10 - B35.1) 04/24/2024 Pain in right toe(s) (ICD-10 - M79.674) 08/27/2024 Ingrown nail (ICD-10 - L60.0) 08/27/2024 Onychomycosis (ICD-10 - B35.1) 08/27/2024 Pain in left toe(s) (ICD-10 - M79.675) 04/24/2024 Pain in left toe(s) (ICD-10 - [...] X ray : Foot, left 3V 03/22/2022 80407-RROADEK NAIL, 1-5 05/17/2022 72677-NKLYABG NAIL, -09/13/2022 45884-HXWPUEO NAIL, -01/10/2023 63130-XYHHOQQ NAIL, -05/03/2023 38798-AIVJSWG NAIL, -09/13/2023 28360-BPAEAAV NAIL, -01/03/2024 14904-HFYSMYT NAIL, -04/05/2019 37493-VYVYJJM NAIL, 06-2307/10/2019 64102-YJHHPFU NAIL, -11/05/2019 04816-IICSKWP NAIL, 06-2302/07/2020 05387-EUYDZRJ NAIL, 06-2305/08/2020 10253-HSSWUZN NAIL, 06-2308/14/2020 72668-BULPHIC NAIL, 06-2311/18/2020 82016-BFKAEQS NAIL, -10/10/2014 68634-SSDVKMX NAIL, -04/14/2015 66051-KEVUKLD NAIL, 06-2308/13/2015 10830-INBMYBK NAIL, -12/10/2015 85047-WREYURC NAIL, -11/17/2017 16371-TWXIDIW NAIL, 06-2302/16/2018 14266-DKMOHXE NAIL, 06-2305/18/2018 27269-XNRZKWR NAIL, 06-2309/14/2018 19090-IMFVMQO NAIL, 06-2312/28/2018 75643-QMYMYGZ NAIL, 06-2302/23/2021 69404-MLPNAXQ NAIL, 06-2306/01/2021 20107-LOGXYUF NAIL, 06-2309/08/2021 13749-QJOUYBC NAIL, -09/02/2013 26509-JBBOAQK NAIL, -01/11/2022 68524-HFDHAYW NAIL, 06-2308/27/2024 94887-Ltgtuxrx Plate 01/11/2022 98129-Ohzpfewa Plate 12/28/2018 56584-Cofhmwvg Plate 04/05/2019 64478-Goriokzp Plate 05/18/2018 07353-Ismqorxa Plate 01/05/2016 29718-Fkoaqgbt Plate 12/10/2015 86257-Fykhbcik Plate 09/02/2013 17292-Twjospti Plate 11/29/2013 57501-Ycyubuhy Plate 07/02/2014 79222-Ystgofhg Plate 02/23/2021 48405-Shvlbtzd Plate 08/14/2020 42981-Lbpekqdu Plate 11/05/2019 07462-Nxsjjhap Plate 08/27/2024 00045-Bfzajkjr Plate Each Additional 23933- Debride <25 sq cm 09/08/2021 Next Appt Details Provider Name:Melissa Pete , 11/26/2024 02:00:00 PM, [address] [facility], [place], [address], Insurance Providers Payer Name Payer Address Payer Phone Subscriber Number Group Number Insured Name Patient Relationship to Insured Coverage Start Date Coverage End Date Medicare National Govt Sv[employer] [address] [facility] [address] [id number] Naomy Hyman Self - patient is the insured [facility] [address] [place] [address] [id number] Naomy Hyman Self - patient is the insured Medical (General) History Medical History History ICD Code Arthritis back, hip, knee pain high blood pressure osteoporosis thyroid disorder mumps measles chicken pox Surgical History Surgery Date(Month/Year) appendectomy inguinal hernia repair tubal ligation Cataract sx 04/2022
[2024-09-23 09:38] VITALS: BP 150/70
== END 2024-09-23 09:45 | disposition home or self-care (01) ==
LOC: HO.HMCC 08:39
PROVIDERS: PCP Nurse Practitioner Family; Visit Provider Nurse Practitioner Family
DX: Z00.00 Encounter for general adult medical examination without abnormal findings (principal); I10 Essential (primary) hypertension; Z23 Encounter for immunization

== ENCOUNTER → 2024-09-23 08:39 | Outpatient (BNVA) | payer MEDICARE, BC, SELFPAY | PROVIDERS: PCP Nurse Practitioner Family; Visit Provider Nurse Practitioner Family | DX: Z00.00 Encounter for general adult medical examination without abnormal findings (principal); I10 Essential (primary) hypertension; Z23 Encounter for immunization | CPT/HCPCS: 90471; 90715; 96127; 99212 ==

== ENCOUNTER 2024-10-23 13:27 | Outpatient (REF) | payer MEDICARE, BC, SELFPAY ==
--- NOTE | ~2024-10-23 | XR_ITS ---
EXAMINATION: XR HIP, LEFT CLINICAL INFORMATION: M25.552 - Pain in left hip COMPARISON: April 14, 2020. TECHNIQUE: Two views of the left hip. FINDINGS: Asymmetric joint space narrowing, left coxofemoral joint. Subchondral cyst formation and sclerosis along the articular surfaces of the acetabulum and humeral head. No acute cortical disruption or malalignment. No lytic or blastic lesions. Vascular calcifications XR/XR hip LT min 2V IMPRESSION: Moderate osteoarthrosis, left hip. Electronically signed by: Garfield Mascorro MD 10/23/2024 02:13 PM EDT
--- OUTSIDE RECORDS SUMMARY | 2024-10-23 14:43 | XMS_ITS ---
Author Organization [facility] Address [address] [facility] [address] [place] [address] Care Team Providers Care Relief Map Modeler Name Role Phone Juan C Fuentes Primary Care Provider Unav ailable Black, Melissa Unavailable [phone] REASON FOR VISIT Ingrown Nail, Painful nail(s) aggravated by shoes causing difficulty standing/walking Medications Medication SIG (Take, Route, Frequency, Duration) Notes Start Date End Date Status [place] Thyroid 60 MG 1 tablet Orally Onc [...] Ordered Date Performed Result Body Sit e 12500-GSWIWRA NAIL, 1-5 08/27/2024 N/A 91672-Hgumnabf Plate 08/27/2024 N/A Encounters Encounter Location Date Provider Diagnosis [facility] [place] [address] [place] [address] 08/27/2024 Melissa Pete Ingrown nail L60.0 ; Onychomycosis B35.1 and Pain in left toe(s) M79.675 Assessments Encounter Date Diagnosis (ICD Code) Assessment Notes Treatment Notes Treatment Clinical Notes Section Notes 08/27/2024 Ingrown nail (ICD-10 - L60.0) 08/27/2024 Onychomycosis (ICD-10 - B35.1) 08/27/2024 Pain in left toe(s) (ICD-10 - M79.675) Plan Of Treatment Pending Test Test Name Order Date 69132-KHGAVYV NAIL, 1-08/27/2024 12368-Fmafhgzv Plate 08/27/2024 Next Appt Details Follow Up: 2 Weeks, Reason: Provider Name:Melissa Pete , 11/26/2024 02:00:00 PM, [address] [facility], [place], [address], Procedure Notes * Category Sub-Category Detail Notes [...] Motrin was recommended for pain or discomfort (23637) Anesthesia , was accomplished T OPICALLY with [...] necessary to maintain effective symptomatic relief - 02058 Progress Notes * Naomy BLACK LDOB:1945 (79 yo F)Acc No.[id number]:08/27/2024 Progress Note Patient:?Naomy BLACK Provider:?Melissa Pete DPM :1945???Age:79 Y???Sex:Female D ate:08/27/2024 Address: [address], [facility] Pcp:BINH Zazueta Subjective: * Chief Complaints: * [...] Manage Prod 25 Miscellaneous as directed Orally [place] Thyroid 60 MG Tablet 1 tablet Orally Once a day Norvasc Taking Lasix 20 MG Tablet 1 tablet Orally Once a day Taking Lisinopril 40 MG Tablet 1 tablet Orally Once a day Taking Metoprolol & Diet Manage Prod 25 Miscellaneous as directed Orally Taking [place] Thyroid 60 MG Tablet 1 tablet Orally [...] toe(s) - M79.675??? Plan: * Treatment: 2.?Onychomycosis?Procedure: 49751-TCLSMZP NAIL, 1-5 * Procedures:?Debride Nails 1-5:?Procedure:?Due to [...] necessary to maintain effective symptomatic relief - 93643.?Nail Avulsion:?Location?, Bilateral nail border, TA.?Anesthesia?, was accomplished [...] Motrin was recommended for pain or discomfort (91750).? * Procedure Codes:?77718 Avuls ion Plate, [place]: [place] [address] DEBRIDE NAIL, 1-5 * Preventive Medicine:? ??Screening/Special Tests:?Fall Risk?Screening:?No falls in the past year ?FALLS: Screening for Future Fall Risk?Have you had any falls with injury in the past year??No * Follow Up:?2 Weeks * Images: * Sign off status: Completed true * Provider:?Melissa Pete DPM Date:?2024 Generated for Girish ross/Milly/Deborah on:?10/23/2024 02:42 PM EDT History and Physical Notes * HPI [...]
--- OUTSIDE RECORDS SUMMARY | 2024-10-23 14:43 | XMS_ITS | Patient Health Record ---
Author Organization [facility] Address [address] [facility] [place] [address] Care Team Providers Care Motion Picture Operator Name Role Phone Juan C Fuentes Primary Care Provider Unav ailable Melissa Pete Unavailable [phone] Reason For Referral No Information Medications Medication [...] tablet Orall y Once a day Not-Taking [place] Thyroid 60 MG 1 tablet Orally Onc [...] primary osteoarthritis of the ankle and/or foot (896061743) Primary osteoarthritis, 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 confirmed Problem Ulcer of foot (86856713) Non-pressure chronic ulcer of other part of left foot limited to breakdown of skin (L97.521) Active confirmed Problem Acquired deformity of left foot (0548208508559645 4) 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) Active confirmed Vital Signs Blood pressure diastolic 70 mm Hg 08/27/2024 Height 5 ft 3 in in 08/27/2024 Blood pressure systolic 180 mm Hg 08/27/2024 Weight 128 lbs 08/27/2024 BMI 22.67 kg/m2 08/27/2024 Procedures Procedure Date Ordered Date Performed Result Body Sit e 71253-NJKYCQY NAIL, 1-5 01/03/2024 N/A 12615-QQQRHGK NAIL, 1-08/27/2024 N/A 15154-Uthumeml Plate 08/27/2024 N/A Encounters Encounter Location Date Provider Diagnosis [address] [address] 01/03/2024 Melissa Black Sprain of anterior talofibular ligament of left ankle, initial encounter S93.492A ; Tinea unguium B35.1 ; Pain in right toe(s) M79.674 ; Pain in left toe(s) M79.675 ; Pain in left foot M79.672 ; Peroneal tendinitis of left lower extremity M76.72 and Acute left ankle pain M25.[address] [address] 04/24/2024 Melissa Black Tinea unguium B35.1 ; Pain in right toe(s) M79.674 ; Pain in left toe(s) M79.675 ; Pain in left foot M79.672 and Peroneal tendinitis of left lower extremity M76.72 [facility] [address] [address] 08/27/2024 Melissa Black Ingrown nail L60.0 ; [...] X ray : Foot, left 3V 03/22/2022 14500-TEESGRV NAIL, 1-5 05/17/2022 93898-YTSGXGP NAIL, -09/13/2022 94843-CCPIOFJ NAIL, -01/10/2023 08357-YSZCBDV NAIL, -05/03/2023 18891-GYZFZAS NAIL, -09/13/2023 32484-YQRABGG NAIL, -01/03/2024 27114-PNXXJAG NAIL, -04/05/2019 71627-YCRBVUJ NAIL, 06-2307/10/2019 30594-HZWOTKQ NAIL, -11/05/2019 52563-PHIHXUQ NAIL, 06-2302/07/2020 85851-IYPYPWQ NAIL, 06-2305/08/2020 89119-AMJMSEO NAIL, 06-2308/14/2020 68664-XOITOBW NAIL, 06-2311/18/2020 07260-CKSSALF NAIL, -10/10/2014 78630-NXPPHGJ NAIL, -04/14/2015 98886-KTGPMDH NAIL, 06-2308/13/2015 15512-XFXWRBB NAIL, -12/10/2015 72888-JYXUVDV NAIL, -11/17/2017 83016-LLRLTVK NAIL, 06-2302/16/2018 18060-UJYKMLF NAIL, 06-2305/18/2018 72488-TBIZPRH NAIL, 06-2309/14/2018 64814-OAZQVXB NAIL, 06-2312/28/2018 88098-MZRESWR NAIL, 06-2302/23/2021 89932-OMFFPVC NAIL, 06-2306/01/2021 96362-TNQOVZT NAIL, 06-2309/08/2021 72120-NIJBQWJ NAIL, -09/02/2013 18133-IKFRMAJ NAIL, -01/11/2022 33712-KROAKKQ NAIL, 06-2308/27/2024 65939-Wydiuopv Plate 01/11/2022 14480-Ukuxwcsy Plate 12/28/2018 24989-Fxshquic Plate 04/05/2019 33515-Ugcuhxio Plate 05/18/2018 67427-Tylfzpaq Plate 01/05/2016 97681-Zgksgsjf Plate 12/10/2015 68195-Aahehnty Plate 09/02/2013 70983-Srstwtpj Plate 11/29/2013 19127-Sfnobdzd Plate 07/02/2014 76390-Apabmeth Plate 02/23/2021 70785-Cyliopfo Plate 08/14/2020 61147-Aegnryfg Plate 11/05/2019 84478-Imzsstus Plate 08/27/2024 78736-Vaiuasve Plate Each Additional 88586- Debride <25 sq cm 09/08/2021 Next Appt Details Provider Name:Melissa Pete , 11/26/2024 02:00:00 PM, [address] [facility], [place], [address], Insurance Providers Payer Name Payer Address Payer Phone Subscriber Number Group Number Insured Name Patient Relationship to Insured Coverage Start Date Coverage End Date Medicare National Govt Svcs Inc [address] [place] [address] [id number] Naomy Hyman Self - patient is the insured [facility] [address] [place] [address] [id number] Naomy Hyman Self - patient is the insured Medical (General) History Medical History History ICD Code Arthritis back, hip, knee pain high blood pressure osteoporosis thyroid disorder mumps measles chicken pox Surgical History Surgery Date(Month/Year) appendectomy inguinal hernia repair tubal ligation Cataract sx 04/2022
--- OUTSIDE RECORDS SUMMARY | 2024-10-23 14:43 | XMS_ITS ---
Author Organization [facility] Address [address] [facility] [place] [address] Care Team Providers Care Exhibit Electrician Name Role Phone Juan C Fuentes Primary Care Provider Unav ailable Melissa Pete [phone] Encounters Encounter Location Date Provider Diagnosis [address] [address] 08/28/2024 Melissa Pete Plan Of Treatment Next Appt Details Provider Name:Melissa Jaffe Juan R , 11/26/2024 02:00:00 PM, [address] [facility], [place], [address], Progress Notes * Naomy BLACK LDOB:1945 (79 yo F)Acc No.[id number]:08/28/2024 Progress Note Patient:?Naomy BLACK Provider:?Melissa Pete DPM :1945???Age:79 Y???Sex:Female D ate:08/28/2024 Address:[address], [place] Pcp:BINH Zazueta Subjective: * Chief Complaints: * ??? * Medical History:? Objective: * Vitals:? Assessment: Plan: * Treatment: * Images: * The named appointment provid er may or may not be the originator of this progress note, and it is not deemed complete until electronically signed by the appointment provider. Sign off status: Pending * Provider:Rivera Pete DPM Date:?2024 Generated for Girish ross/Milly/Deborah on:?10/23/2024 02:42 PM EDT
--- OUTSIDE RECORDS SUMMARY | 2024-10-23 14:43 | XMS_ITS ---
Author Organization [facility] Address [address] [facility] [place] [address] Care Team Providers Care Operations Planner Name Role Phone Juan C Fuentes Primary Care Provider Unav ailable Black, Melissa Unavailable [phone] REASON FOR VISIT Painful thick toenails which [...] Manage Prod 25 as directed Orally Active [place] Thyroid 60 MG 1 tablet Orally Onc [...] 024 Encounters Encounter Location Date Provider Diagnosis [facility] [address] [address] 04/24/2024 Melissa Pete Tinea unguium B35.1 ; [...] Juan R , 11/26/2024 02:00:00 PM, [address] [facility], [place], [address], Progress Notes * Naomy BLACK LDOB:1945 (78 yo F)Acc No.[id number]:04/24/2024 Progress Note Patient:?Naomy Black Provider:?Melissa Pete DPM :1945???Age:78 Y???Sex:Female D ate:04/24/2024 Address:[address] [place] [address] [place], [facility] [place] Pcp:BINH Zazueta Subjective: * Chief Complaints: * [...] Manage Prod 25 Miscellaneous as directed Orally [place] Thyroid 60 MG Tablet 1 tablet Orally Once a dayTaking Lasix 20 MG Tablet 1 tablet Orally Once a dayTaking Lisinopril 40 MG Tablet 1 tablet Orally Once a dayTaking Metoprolol & Diet Manage Prod 25 Miscellaneous as directed Orally Taking [place] Thyroid 60 MG Tablet 1 tablet Orally [...] Pete DPM Date:?2023 Generated for Girish ross/Milly/Deborah on:?10/23/2024 02:43 PM EDT History and Physical Notes * [...]
--- OUTSIDE RECORDS SUMMARY | 2024-10-23 14:43 | XMS_ITS | Clinical Summary ---
Author Organization [facility] Address [address] [place] [address] Phone Care Team Providers Care Food Counselor Name Role Phone Juan C Skelton NP Primary Care Provider [phone] Surgical History Surgery Date Site/Laterality Comments STEREOTACTIC [...] 5 season) 2024 03/16/2021, 09/15/2020 Influenza Vaccine (Season Ended) 2025 Pneumococcal Vaccine: 50+ Years Completed 03/31/2022, 08/24/2010, [...] age to complete this topic Meningococcal B Vaccine Aged Out No l onger eligible based on patient's age to complete this topic RSV Immunization Patients Under 20 months Aged Out No longer eligible b ased on patient's age to complete this topic Varicella Vaccines Aged Out No longer eligible based on patient's age to complete this topic Insurance MEDICARE [facility] Care Teams Food Counselor Relationship Specialty Start Date End Date Juan C Skelton NP PCP - General Family Medicine 05/27/24
--- OUTSIDE RECORDS SUMMARY | 2024-10-23 14:43 | XMS_ITS | Clinical Summary ---
Author Organization [facility] Address [address] [place] [address] [place] [address] Phone Care Team Providers Care Head Transfer Clerk Name Role Phone Unavailable Primary Care Provider Unavailabl e Allergies Active Allergy Reactions Criticality Noted Date Comments Adhesive Tape 10/22/2020 Amlodipine 10/22/2020 Bacitracin 10/22/2020 Sulfamethoxazole-Trimethoprim Other (see comments) 10/22/2020 Penicillin G Benzathine Rash Low 10/22/2020 Brompheniramine 10/22/2020 Calcium 10/22/2020 Calcium Carbonate 10/22/2020 Cefaclor 10/22/2020 Chlorpheniramine 10/22/2020 Clindamycin Other (see comments) 10/22/2020 Knjmyzs-Zquatofx-Jszvxweza-Hc Other (see comments) 06/01/2021 Propoxyphene 10/22/2020 Dexbrompheniramine 10/22/2020 Chlorpheniramine-Dm Other (see comments) 2020 Diphenhydramine Other (see comments) 10/22/2020 Doxazosin 10/22/2020 Dexbrompheniramine-Pseudoeph Other (see comments) 06/01/2021 Erythromycin 10/22/2020 Gentamicin 10/22/2020 Garlic 10/22/2020 Ginkgo Biloba 10/22/2020 Guaifenesin 10/22/2020 Hydralazine 10/22/2020 Hydrochlorothiazide Other (see comments) 2020 Hydrocortisone 10/22/2020 Latex Other (see comments) 06/01/2021 Meclizine 10/22/2020 Methylsulfonylmethane 10/22/2020 Ixkwbarthiuncez-Vw-Szos Other (see comments) Nebivolol 10/22/2020 Nebivolol Hcl [...] 10/22/2020 Anxiety state 10/22/2020 Hypothyroidism 10/22/2020 Immunizations Immunization Administration Dates Next Due Pfizer SARS-COV-2 03/16/2021 [...] Due Date Last Done Comments Pneumococcal Vaccine: 50+ Ye ars (1 of 2 - PCV) 1964 Influenza Vaccine (Season Ended) 2025 Hepatitis B Vaccine Aged Out No longe r eligible based on patient's age to complete this topic Insurance Medicare [facility] [place] [address] Medicare [facility]
== END 2024-10-23 13:28 | disposition home or self-care (01) ==
LOC: HO.HMGCX 13:27
PROVIDERS: PCP Nurse Practitioner Family; Visit Provider Nurse Practitioner Family
DX: M25.552 Pain in left hip (principal)
CPT/HCPCS: 73502

== ENCOUNTER → 2024-10-23 13:49 | Outpatient (BNV) | payer MEDICARE, BC, SELFPAY | PROVIDERS: PCP Nurse Practitioner Family; Visit Provider Radiology Diagnostic Radiology | DX: M16.12 Unilateral primary osteoarthritis, left hip (principal) | CPT/HCPCS: 73502 ==

== ENCOUNTER 2025-01-13 11:28 | Outpatient (AMB) | payer MEDICARE, BC, SELFPAY ==
--- OUTSIDE RECORDS SUMMARY | 2024-08-28 07:15 | XMS_ITS ---
Author Organization [facility] Address [address] [facility] [address] Care Team Providers Care Engine Inspector Name Role Phone Juan C Fuentes Primary Care Provider Unav ailable Juan R Melissa Sanders [phone] Encounters Encounter Location Date Provider Diagnosis [address] [address] 08/28/2024 Melissa Pete Plan Of Treatment Next Appt Details Provider Name:Melissa Pete , 02/18/2025 01:00:00 PM, [address] [facility], [place], [address], Progress Notes * Naomy BLACK LDOB:1945 (79 yo F)Acc No.[id number]:08/28/2024 Progress Note Patient: Jesus TINSLEY Naomy Escobar Provider: Suzanna Pete DPM :1945 A ge:79 Y S ex:Female Date:08/28/2024 Address:[address], [place] Pcp:BINH Zazueta Subjective: * Chief Complaints: * [...] 0 08/28/2024 Generated for Printi ng/Milly/Cecilyitting on: 0 01/13/2025 12:45 PM EDT
[2025-01-13 12:30] VITALS: BP 130/62; PULSE 66; TEMP 36.4; O2SAT 99; BMI 23.2
--- NOTE | 2025-01-13 12:30 | AM.OFFWIN_ITS ---
Intake Vital Signs 01/13/25 12:30 Height 5 ft 4 in Weight 135 lb 6 oz BMI 23.2 BP 130/62 Blood Pressure Location Lt brachial Position Sitting Pulse 66 Pulse Source Pulse Oximeter Temp 97.6 F Temp Source Oral Pulse Oximetry (%) 99 Oxygen Delivery Method Room Air Intake Visit Reasons: EP-lt hip pain [phone] Patient Tobacco Use Status: Former Tobacco user Sales Support Technician Required: No Is last menstrual period known: No Post menopausal: Yes Patient : No Allergies adhesive tape Allergy (Unknown, Verified 01/13/25 12:34) hives amlodipine (From Norvasc) Allergy (Unknown, Verified 01/13/25 12:34) Swelling od hands/feet bacitracin (From Cortisporin) Allergy (Unknown, Verified 01/13/25 12:34) Eye irritation brompheniramine (From Dimetapp Cold-Allergy (PE)) Allergy (Unknown, Verified 01/13/25 12:34) Body Rash calcium (From DHEA) Allergy (Unknown, Verified 01/13/25 12:34) Unknown calcium carbonate (From DHEA) Allergy (Unknown, Verified 01/13/25 12:34) Unknown cefaclor Allergy (Unknown, Verified 01/13/25 12:34) Perineum rash chlorpheniramine (From Fedahist) Allergy (Unknown, Verified 01/13/25 12:34) Body Rash clindamycin Allergy (Unknown, Verified 01/13/25 12:34) GI upset/pain/vomiting devil's claw Allergy (Unknown, Verified 01/13/25 12:34) unsure reaction dexbrompheniramine (From Drixoral) Allergy (Unknown, Verified 01/13/25 12:34) Body Rash diphenhydramine (From Benadryl) Allergy (Unknown, Verified 01/13/25 12:34) Body Rash doxazosin Allergy (Unknown, Verified 01/13/25 12:34) Extreme anxiety erythromycin base Allergy (Unknown, Verified 01/13/25 12:34) Perineum rash garlic Allergy (Unknown, Verified 01/13/25 12:34) Unknown gentamicin (From Garamycin) Allergy (Unknown, Verified 01/13/25 12:34) [eye drops] Eye swelling ginkgo biloba Allergy (Unknown, Verified 01/13/25 12:34) piercing pain in head guaifenesin (From Fedahist) Allergy (Unknown, Verified 01/13/25 12:34) Body Rash hydralazine Allergy (Unknown, Verified 01/13/25 12:34) Swelling of feet/legs hydrochlorothiazide Allergy (Unknown, Verified 01/13/25 12:34) Itchy palms hydrocortisone (From Cortisporin) Allergy (Unknown, Verified 01/13/25 12:34) Eye irritation meclizine Allergy (Unknown, Verified 01/13/25 12:34) very dry mouth methylsulfonylmethane (From MSM) Allergy (Unknown, Verified 01/13/25 12:34) Itchy palms nebivolol (From Bystolic) Allergy (Unknown, Verified 01/13/25 12:34) Swelling of feet/ legs neomycin (From Cortisporin) Allergy (Unknown, Verified 01/13/25 12:34) Eye irritation nifedipine (From Procardia) Allergy (Unknown, Verified 01/13/25 12:34) Swelling of feet and legs nut - unspecified Allergy (Unknown, Verified 01/13/25 12:34) mouth sores Peanut Butter Allergy (Unknown, Verified 01/13/25 12:34) mouth sores penicillin V Allergy (Unknown, Verified 01/13/25 12:34) Body rash Penicillins Allergy (Unknown, Verified 01/13/25 12:34) body rash phenylephrine (From Dimetapp Cold-Allergy (PE)) Allergy (Unknown, Verified 01/13/25 12:34) Body Rash polymyxin B (From Cortisporin) Allergy (Unknown, Verified 01/13/25 12:34) Eye irritation prasterone (DHEA) (From DHEA) Allergy (Unknown, Verified 01/13/25 12:34) Unknown propoxyphene (From Darvon) Allergy (Unknown, Verified 01/13/25 12:34) Unknown pseudoephedrine (From Drixoral) Allergy (Unknown, Verified 01/13/25 12:34) Body Rash shellfish derived Allergy (Unknown, Verified 01/13/25 12:34) itchy body Sulfa (Sulfonamide Antibiotics) Allergy (Unknown, Verified 01/13/25 12:34) Itchy palms sulfamethoxazole (From Bactrim) Allergy (Unknown, Verified 01/13/25 12:34) itchy palms trimethoprim (From Bactrim) Allergy (Unknown, Verified 01/13/25 12:34) itchy palms Macrolide Antibiotics Allergy (Verified 01/13/25 12:34) Unknown prednisone Allergy (Verified 01/13/25 12:34) Flushing tetracycline Allergy (Verified 01/13/25 12:34) Unknown Carditone Allergy (Unknown, Uncoded 09/23/24 09:33) Swelling of feet/legs; itchy body Do you need a note to return to daycare/school/sports/work: No HPI HPI Comments History of Present Illness Details 79 y/o Female patient who presents to [facility] walk in clinic with c/o Chronic right hip Pain for few months now. Denies any injury 0r trauma to the Hip. Pt had Xray of Hip back in 10/2024 which showed OA. Pt does not like taking Pills , so she has been using core strengthening exercises and apply Hit/Cold with minimal relief. [facility] Medical History Fall Dyslipidemia Colonoscopy refused Osteoporosis Hypothyroid HTN (hypertension) Aortic insufficiency Osteopenia CKD (chronic kidney disease) stage 3, GFR 30-59 ml/min Mitral valve disorder Surgical History History of breast biopsy History of tubal ligation Family History Father No problems noted. Mother Pancreatic cancer Social History Housing: Condominium Patient Tobacco Use Status: Former Tobacco user Years Smoked: 50 years ago e-Cigarette/Vaping Use: Never Used Second Hand Smoke Exposure: No Patient : No service: No Current occupational status: retired Cognitive needs: No Hearing needs: No Vision needs: No Review of Systems Const All systems reviewed & are unremarkable except as noted in HPI and below Physical Exam Vital Signs: Last Vital Signs Temp 97.6 F 01/13/25 12:30 Pulse 66 01/13/25 12:30 BP 130/62 01/13/25 12:30 Pulse Ox 99 01/13/25 12:30 Oxygen Delivery Method Room Air 01/13/25 12:30 BMI result Body Mass Index 23.2 Const General: no acute distress Orientation/consciousness: patient oriented x3 Neuro General: patient oriented x3, gait normal and moves all extremities Gait exam (Neuro): Assisted gait required (Cane.) Extrem Right lower extremity: normal to inspection and full ROM Left lower extremity: hip/thigh Details: normal to inspection, tenderness Location: of the hip Location: laterally and normal ROM; no swelling Psych Speech and movement: Normal speech and movement present Assessment & Plan Assessment & Plan (1) Left hip pain: Code(s): M25.552 - Pain in left hip Plan: Acetaminophen and Ibuprofen for pain relief. Ice/Hot Rest. Ordered PT Referral to Ortho. Orders: Orders PT Evaluation and Treatment Today M25.552 - Pain in left hip Referrals Orthopedics Referral M25.552 - Pain in left hip Coding Level of Care Code Est Pt Level 4 (93469) Diagnoses Left hip pain M25.552 Time Spent (min) 20
--- OUTSIDE RECORDS SUMMARY | 2025-01-13 12:45 | XMS_ITS | Clinical Summary ---
Author Organization [facility] Address [address] [address] Phone Care Team Providers Care Crop Or Livestock Tenant Farmer Name Role Phone Unavailable Primary Care Provider Unavailabl e Allergies Active Allergy Reactions Criticality Noted Date Comments Adhesive Tape 10/22/2020 Amlodipine 10/22/2020 Bacitracin 10/22/2020 Sulfamethoxazole-Trimethoprim Other (see comments) 10/22/2020 Penicillin G Benzathine Rash Low 10/22/2020 Brompheniramine 10/22/2020 Calcium 10/22/2020 Calcium Carbonate 10/22/2020 Cefaclor 10/22/2020 Chlorpheniramine 10/22/2020 Clindamycin Other (see comments) 10/22/2020 Zbuelqj-Uenpdqjy-Nwzoomdax-Hc Other (see comments) 06/01/2021 Propoxyphene 10/22/2020 Dexbrompheniramine 10/22/2020 Chlorpheniramine-Dm Other (see comments) 2020 Diphenhydramine Other (see comments) 10/22/2020 Doxazosin 10/22/2020 Dexbrompheniramine-Pseudoeph Other (see comments) 06/01/2021 Erythromycin 10/22/2020 Gentamicin 10/22/2020 Garlic 10/22/2020 Ginkgo Biloba 10/22/2020 Guaifenesin 10/22/2020 Hydralazine 10/22/2020 Hydrochlorothiazide Other (see comments) 2020 Hydrocortisone 10/22/2020 Latex Other (see comments) 06/01/2021 Meclizine 10/22/2020 Methylsulfonylmethane 10/22/2020 Apdarjdjxqxvkzb-Bj-Srdh Other (see comments) Nebivolol 10/22/2020 Nebivolol Hcl [...] of 2 - PCV) 1964 Influenza Vaccine (#1) 2025 Hepatitis B Vaccine Aged Out No longe r eligible based on patient's age to complete this topic Insurance Medicare [facility] [place] [id number] Medicare [facility]
--- OUTSIDE RECORDS SUMMARY | 2025-01-13 12:45 | XMS_ITS | Clinical Summary ---
Author Organization [facility] Address [address] [place] [address] Phone Care Team Providers Care Shafting Worker Name Role Phone Juan C Skelton NP Primary Care Provider Surgical History Surgery Date Site/Laterality Comments STEREOTACTIC [...] Patients (1 - 1-dose 75+ series) 2020 Falls Risk Assessment 05/22/2022 Hepatitis C Screening 05/22/2022 Medicare Annual Wellness Visit 05/22/2022 Osteoporosis Screening (Bone Density Screening) 05/22/2022 Social Influencers of Health Screening 05/22/2022 COVID-19 Vaccine (3 - 2023-2 5 season) 2024 03/16/2021, 09/15/2020 Depression Screening 06/19/2024 Influenza Vaccine (#1) 2025 Pneumococcal Vaccine: 50+ Years Completed 03/31/2022, [...] age to complete this topic Insurance MEDICARE [facility] Care Teams Shafting Worker Relationship Specialty Start Date End Date Juan C Skelton PARKING LOT SPOTTER PCP - General Family Medicine 05/27/24
== END 2025-01-13 13:37 | disposition home or self-care (01) ==
PROVIDERS: PCP Nurse Practitioner Family; Visit Provider Nurse Practitioner Family
DX: M25.552 Pain in left hip (principal)

== ENCOUNTER → 2025-01-13 11:28 | Outpatient (BNVA) | payer MEDICARE, BC, SELFPAY | PROVIDERS: PCP Nurse Practitioner Family; Visit Provider Nurse Practitioner Family | DX: M25.552 Pain in left hip (principal) | CPT/HCPCS: 99212 ==

== ENCOUNTER 2025-03-19 12:27 | Outpatient (REF) | payer MEDICARE, BC, SELFPAY ==
--- OUTSIDE RECORDS SUMMARY | 2024-08-28 07:15 | XMS_ITS ---
Author Organization [facility] Address [address] [facility] [place] [address] Care Team Providers Care Filter Press Pumper Name Role Phone Juan C Fuentes Primary Care Provider Unav ailable Juan RFouziagutierrez Sanders [phone] Encounters Encounter Location Date Provider Diagnosis [address] [address] 08/28/2024 Melissa Pete Plan Of Treatment Next Appt Details Provider Name:Melissa Pete , 05/20/2025 01:00:00 PM, [address] [facility], [place], [address], Progress Notes * Naomy BLACK LDOB:1945 (79 yo F)Acc No.[id number]:08/28/2024 Progress Note Patient: Jesus TINSLEY Naomy Escobar Provider: Suzanna Pete DPM :1945 A ge:79 Y S ex:Female Date:08/28/2024 Address:[address], [place] Pcp:BINH Zazueta Subjective: * Chief Complaints: * [...] 08/28/2024 Generated for Printi ng/Milly/Cecilyitting on: 1 01:58 PM EDT
--- NOTE | ~2025-03-19 | XR_ITS ---
EXAMINATION: XR PELVIS CLINICAL INFORMATION: M25.559 - Pain in unspecified hip COMPARISON: April 26, 2021 TECHNIQUE: AP view of the pelvis. FINDINGS: No acute cortical disruption, bony pelvis. Levoconvex rotoscoliosis lower lumbar spine and multilevel spondylosis. Joint space narrowing and subchondral cyst formation and sclerosis along the articular surface of the left coxofemoral joint, similar findings to a lesser extent in the right coxofemoral joint. Vascular calcifications, aorta. Osteopenia versus osteoporosis. XR/XR pelvis 1-2V IMPRESSION: Moderate to severe osteoarthrosis/osteoarthritis, left hip. Mild to moderate osteoarthrosis/osteoarthritis, right hip. Electronically signed by: Garfield Mascorro MD 03/19/2025 01:59 PM EDT
--- OUTSIDE RECORDS SUMMARY | 2025-03-20 13:58 | XMS_ITS | Clinical Summary ---
Author Organization [facility] Address [address] [place] [address] Phone Care Team Providers Care Talent Sourcer Name Role Phone Juan C Skelton NP Primary Care Provider [phone] Surgical History Surgery Date Site/Laterality Comments STEREOTACTIC [...] age to complete this topic Insurance MEDICARE [facility] Care Teams Talent Sourcer Relationship Specialty Start Date End Date Juan C Skelton CONFERENCE SERVICES COORDINATOR PCP - General Family Medicine 05/27/24
--- OUTSIDE RECORDS SUMMARY | 2025-03-20 13:59 | XMS_ITS | Patient Health Record ---
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 Name Role Phone Juan C Fuentes Primary Care Provider Unav ailable BlackMelissa Unavailable [phone] Allergies Allergen (clinical drug ingredient) Drug/Non Drug Allergy documented on EMR Reaction Allergy Type Onset Date Status sulfamethoxazole / trimethoprim Bactrim Unknown Drug Allergy Active diphenhydramine Benadryl Unknown Drug Allergy Active nebivolol Bystolic Unknown Drug Allergy Active clindamycin Clindamycin HCl Unknown Drug Allergy 9 Active Cortisporin Unknown Drug Allergy Active Dimetapp Long Act Cough/Cold Unknown Drug Allergy Active doxazosin Doxazosin Mesylate Unknown Drug Allergy Active Drixoral Cold/Allergy Unknown Drug Allergy Active hydralazine HydrALAZINE HCl Unknown Drug Allergy Active hydrochlorothiazide Hydrochlorothiazide Unknown D rug Allergy Active amlodipine Norvasc Unknown Drug Allergy Active nifedipine Procardia XL Unknown Drug Allergy Active Dimetapp MultiSympto m Cold/Flu Unknown Drug Allergy Active Garamycin Unknown Drug Allergy Active Adhesive Unknown Allergy Active erythromycin Erythromycin Unknown Drug Allergy Active Latex Latex Unknown Allergy Active Penicillin Unknown Drug Allergy Active prednisone Prednisone facial flushing Drug Allergy Active Shellfish (FN) Shellfish-derived Products Unknown Drug Allergy Active Results Component Value Reference Range Notes X ray : Foot, left 3V Reviewed date:02/18/2025 05:16:51 PM Interpretation:See Examination above Performing Lab: Notes/Report: See Examination above X ray : Foot, right 3V Reviewed date:02/18/2025 05:17:03 PM Interpretation:See Examination above Performing Lab: Notes/Report: See Examination above Reason For Referral No Information Medications Medication SIG (Take, Route, Frequency, Duration) Notes Start Date End Date Status Lasix 20 MG 1 tablet Orally Once a day Active Lisinopril 40 MG 1 tablet Orally Once a day; Duration: 30 day(s) Active Metoprolol & Diet Manage Prod 25 100 mg Orally daily Active [place] Thyroid 60 MG 1 tablet Orally Onc e a day Active Norvasc 5 MG 1 tablet Orally Once a day Active Work Note . . . PT was out of wo rk 08/15/13-09/20/13 due to stress fx of the right foot.Pt to return to work 09/23/13; Duration: . 09/18/2013 Not-Dylan ing Bumetanide 0.5 MG 1 tablet Orally Once a day; Duration: 30 day(s) Not-Dylan ing Sertraline HCl 25 MG 1 tablet Orally Onc e a day Not-Taking Doxazosin Mesylate 1 MG 1/2 tablet Orall y Once a day Not-Taking Immunizations Vaccine Route Administration Date Status Comme nts Influenza Unknown 04/23/2018 Refused Influenza Unknown 11/26/2024 Refused COVID-19 Pfizer BioNTech Vaccine Unknown 03/16/2021 Administered will bring card in with other dates Social History Tobacco Use: Social History Observation [...] primary osteoarthritis of the ankle and/or foot (162857373) Primary osteoarthritis, 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 confirmed Problem Osteoarthritis of midtarsal joint of left foot (8287393173898618 ) Osteoarthritis of midtarsal joint of left foot (M19.072) Active confirmed Problem Osteoarthritis of midtarsal joint of right foot (2091234911777354 ) 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 Vital Signs Blood pressure diastolic 70 mm Hg 02/18/2025 Height 5 ft 3 in in 02/18/2025 Blood pressure systolic 130 mm Hg 02/18/2025 Weight 128 lbs 02/18/2025 BMI 22.67 kg/m2 02/18/2025 Procedures Procedure Date Ordered Date Performed Result Body Sit e 90703-VDWAPRQ NAIL, 1-5 08/27/2024 N/A 20094-Kiwhjgtj Plate 08/27/2024 N/A Encounters Encounter Location Date Provider Diagnosis [address] [address] 04/24/2024 Melissa Black Tinea unguium B35.1 ; Pain in right toe(s) M79.674 ; Pain in left toe(s) M79.675 ; Pain in left foot M79.672 and Peroneal tendinitis of left lower extremity M76.[address] [address] 08/27/2024 Melissa Black Ingrown nail L60.0 ; Onychomycosis B35.1 and Pain in left toe(s) M79.[address] [address] 11/26/2024 Melissa Black Primary osteoarthrit is, left ankle and foot M19.072 and Acute left ankle pain M25.[address] [address] 02/18/2025 Melissa Black Pain in left foot M79.672 ; Osteoarthritis of midtarsal joint of left foot M19.072 ; Pain in left ankle and joints of left foot M25.572 ; Bursitis of left foot M77.52 ; Pain in right foot M79.671 ; Pain in right ankle and joints of right foot M25.571 ; Bursitis of right foot M77.51 ; Osteoarthritis of midtarsal joint of right foot M19.071 and Ingrown nail L60.0 Assessments Encounter Date Diagnosis (ICD Code) Assessment Notes Treatment Notes Treatment Clinical Notes Section Notes 04/24/2024 Tinea unguium (ICD-10 - B35.1) 04/24/2024 Pain in right toe(s) (ICD-10 - M79.674) 08/27/2024 Ingrown nail (ICD-10 - L60.0) 08/27/2024 Onychomycosis (ICD-10 - B35.1) 11/26/2024 Primary osteoarthritis, left ankle and foot (ICD-10 - M19.072) 11/26/2024 Acute left ankle pain (ICD-10 - M25.572) 02/18/2025 Pain in left foot (ICD-10 - M79.672) 02/18/2025 Osteoarthritis of midtarsal joint of left foot (ICD-10 - M19.072) 08/27/2024 Pain in left toe(s) (ICD-10 - M79.675) 02/18/2025 Pain in left ankle and joints of left foot (ICD-10 - M25.572) 04/24/2024 Pain in left toe(s) (ICD-10 - M79.675) 04/24/2024 Pain in left foot (ICD-10 - M79.672) 02/18/2025 Bursitis of left foot (ICD-10 - M77.52) 02/18/2025 Pain in right foot (ICD-10 - M79.671) 04/24/2024 Peroneal tendinitis of left lower extremity (ICD-10 - M76.72) Response to treatment - cont. Improvement 02/18/2025 Pain in right ankle and joints of right foot (ICD-10 - M25.571) 02/18/2025 Bursitis of right foot (ICD-10 - M77.51) 02/18/2025 Osteoarthritis of midtarsal joint of right foot (ICD-10 - M19.071) 02/18/2025 Ingrown nail (ICD-10 - L60.0) Plan Of Treatment Pending Test Test Name Order Date X ray : Foot, right 2V 09/18/2013 Tc99 3 phase Bone Scan 08/08/2013 X ray : Foot, left 3V 03/22/2022 71628-LGJKJOA NAIL, 1-5 05/17/2022 77856-VINCKTB NAIL, 1-5 09/13/2022 93748-YFFBXVB NAIL, 1-5 01/10/2023 05074-MONJJCM NAIL, 1-5 05/03/2023 23046-EGPGQPB NAIL, -09/13/2023 82061-DFAFBRJ NAIL, -01/03/2024 09425-RBPPHXD NAIL, -04/05/2019 27937-HFKNLIN NAIL, -07/10/2019 77902-OHDVULM NAIL, -11/05/2019 26269-BMYVDWO NAIL, -02/07/2020 91800-RWQBYPP NAIL, 06-2305/08/2020 63289-HGDUBSW NAIL, 06-2308/14/2020 12280-ALZUKQD NAIL, -11/18/2020 26816-VGLCMSB NAIL, -10/10/2014 79426-EWDZCRW NAIL, 06-2304/14/2015 64843-WHHLAPO NAIL, 06-2308/13/2015 66547-NDREQNL NAIL, 06-2312/10/2015 14802-ZADZMWQ NAIL, -11/17/2017 65200-RUYTCXV NAIL, 06-2302/16/2018 63755-LIKYQBL NAIL, 06-2305/18/2018 72147-VUKKKTO NAIL, 06-2309/14/2018 98194-EAZFAFW NAIL, 06-2312/28/2018 78885-EQQWRYB NAIL, 06-2302/23/2021 74625-EPIRYWV NAIL, 06-2306/01/2021 36641-BSUSPMS NAIL, 06-2309/08/2021 99165-MJJEYKA NAIL, 06-2309/02/2013 79264-RRVRTJS NAIL, 06-2301/11/2022 48819-KAOOEIQ NAIL, 06-2308/27/2024 42341-Zkthlrwz Plate 01/11/2022 84076-Luqkwbjo Plate 12/28/2018 10397-Rvtzilca Plate 04/05/2019 25477-Oextfjmh Plate 05/18/2018 73341-Umoqmdpd Plate 01/05/2016 16424-Muyvciwk Plate 12/10/2015 26415-Jkfakzan Plate 09/02/2013 16792-Ylybnkog Plate 11/29/2013 14053-Iommcrlp Plate 07/02/2014 33811-Pdjjdruf Plate 02/23/2021 52453-Suivuonm Plate 08/14/2020 58827-Odmszdoq Plate 11/05/2019 30071-Nfansunz Plate 08/27/2024 80500-Hoesujpy Plate Each Additional 94587- Debride <25 sq cm 09/08/2021 Next Appt Details Provider Name:Melissa Pete , 05/20/2025 01:00:00 PM, [address] [facility], [place], [address], Insurance Providers Payer Name Payer Address Payer Phone Subscriber Number Group Number Insured Name Patient Relationship to Insured Coverage Start Date Coverage End Date Medicare [employer] [address] [place] [address] [id number] Naomy Hyman Self - patient is the insured [facility] [address] [place] [address] [phone] [id number] Naomy Hyman Self - patient is the insured Medical (General) History Medical History History ICD Code Arthritis back, hip, knee pain high blood pressure osteoporosis thyroid disorder mumps measles chicken pox Surgical History Surgery Date(Month/Year) appendectomy inguinal hernia repair tubal ligation Cataract sx 04/2022
--- OUTSIDE RECORDS SUMMARY | 2025-03-20 13:59 | XMS_ITS | Clinical Summary ---
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 Name Role Phone Unavailable Primary Care Provider Unavailabl e Allergies Active Allergy Reactions Criticality Noted Date Comments Adhesive Tape 10/22/2020 Amlodipine 10/22/2020 Bacitracin 10/22/2020 Sulfamethoxazole-Trimethoprim Other (see comments) 10/22/2020 Penicillin G Benzathine Rash Low 10/22/2020 Brompheniramine 10/22/2020 Calcium 10/22/2020 Calcium Carbonate 10/22/2020 Cefaclor 10/22/2020 Chlorpheniramine 10/22/2020 Clindamycin Other (see comments) 10/22/2020 Vyityge-Dzsppaer-Oawogducr-Hc Other (see comments) 06/01/2021 Propoxyphene 10/22/2020 Dexbrompheniramine 10/22/2020 Chlorpheniramine-Dm Other (see comments) 2020 Diphenhydramine Other (see comments) 10/22/2020 Doxazosin 10/22/2020 Dexbrompheniramine-Pseudoeph Other (see comments) 06/01/2021 Erythromycin 10/22/2020 Gentamicin 10/22/2020 Garlic 10/22/2020 Ginkgo Biloba 10/22/2020 Guaifenesin 10/22/2020 Hydralazine 10/22/2020 Hydrochlorothiazide Other (see comments) 2020 Hydrocortisone 10/22/2020 Latex Other (see comments) 06/01/2021 Meclizine 10/22/2020 Methylsulfonylmethane 10/22/2020 Xzandkkviduvspm-Ug-Htqq Other (see comments) Nebivolol 10/22/2020 Nebivolol Hcl [...] age to complete this topic Insurance Medicare [facility] [place] [address] Medicare [facility]
== END 2025-03-19 12:28 | disposition home or self-care (01) ==
LOC: HO.HOSX 12:27
PROVIDERS: Visit Provider Physician Assistant
DX: M16.12 Unilateral primary osteoarthritis, left hip (principal)
CPT/HCPCS: 72170; 99202

== ENCOUNTER 2025-03-19 13:19 | Outpatient (AMB) | payer MEDICARE, BC, SELFPAY ==
--- NOTE | 2025-03-19 13:24 | A.OFFVIS_ITS ---
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 Patient presented to [facility] walk in clinic on 01/13/25 with complaints of right hip pain that has been present for a few months. Denies any recent injury. Patient reports pain is located mostly in her thigh and at times in her left buttocks. States her pain was traveling down her leg however this has improved with attending physical therapy. No numbness or tinging. States having tucker splints in both of her legs with the left leg being the worse. Accompanied by: Family/Other Allergies adhesive tape Allergy (Unknown, Verified 03/19/25 13:37) hives amlodipine (From Norvasc) Allergy (Unknown, Verified 03/19/25 13:37) Swelling od hands/feet bacitracin (From Cortisporin) Allergy (Unknown, Verified 03/19/25 13:37) Eye irritation brompheniramine (From Dimetapp Cold-Allergy (PE)) Allergy (Unknown, Verified 03/19/25 13:37) Body Rash calcium (From DHEA) Allergy (Unknown, Verified 03/19/25 13:37) Unknown calcium carbonate (From DHEA) Allergy (Unknown, Verified 03/19/25 13:37) Unknown cefaclor Allergy (Unknown, Verified 03/19/25 13:37) Perineum rash chlorpheniramine (From Fedahist) Allergy (Unknown, Verified 03/19/25 13:37) Body Rash clindamycin Allergy (Unknown, Verified 03/19/25 13:37) GI upset/pain/vomiting devil's claw Allergy (Unknown, Verified 03/19/25 13:37) unsure reaction dexbrompheniramine (From Drixoral) Allergy (Unknown, Verified 03/19/25 13:37) Body Rash diphenhydramine (From Benadryl) Allergy (Unknown, Verified 03/19/25 13:37) Body Rash doxazosin Allergy (Unknown, Verified 03/19/25 13:37) Extreme anxiety erythromycin base Allergy (Unknown, Verified 03/19/25 13:37) Perineum rash garlic Allergy (Unknown, Verified 03/19/25 13:37) Unknown gentamicin (From Garamycin) Allergy (Unknown, Verified 03/19/25 13:37) [eye drops] Eye swelling ginkgo biloba Allergy (Unknown, Verified 03/19/25 13:37) piercing pain in head guaifenesin (From Fedahist) Allergy (Unknown, Verified 03/19/25 13:37) Body Rash hydralazine Allergy (Unknown, Verified 03/19/25 13:37) Swelling of feet/legs hydrochlorothiazide Allergy (Unknown, Verified 03/19/25 13:37) Itchy palms hydrocortisone (From Cortisporin) Allergy (Unknown, Verified 03/19/25 13:37) Eye irritation meclizine Allergy (Unknown, Verified 03/19/25 13:37) very dry mouth methylsulfonylmethane (From MSM) Allergy (Unknown, Verified 03/19/25 13:37) Itchy palms nebivolol (From Bystolic) Allergy (Unknown, Verified 03/19/25 13:37) Swelling of feet/ legs neomycin (From Cortisporin) Allergy (Unknown, Verified 03/19/25 13:37) Eye irritation nifedipine (From Procardia) Allergy (Unknown, Verified 03/19/25 13:37) Swelling of feet and legs nut - unspecified Allergy (Unknown, Verified 03/19/25 13:37) mouth sores Peanut Butter Allergy (Unknown, Verified 03/19/25 13:37) mouth sores penicillin V Allergy (Unknown, Verified 03/19/25 13:37) Body rash Penicillins Allergy (Unknown, Verified 03/19/25 13:37) body rash phenylephrine (From Dimetapp Cold-Allergy (PE)) Allergy (Unknown, Verified 03/19/25 13:37) Body Rash polymyxin B (From Cortisporin) Allergy (Unknown, Verified 03/19/25 13:37) Eye irritation prasterone (DHEA) (From DHEA) Allergy (Unknown, Verified 03/19/25 13:37) Unknown propoxyphene (From Darvon) Allergy (Unknown, Verified 03/19/25 13:37) Unknown pseudoephedrine (From Drixoral) Allergy (Unknown, Verified 03/19/25 13:37) Body Rash shellfish derived Allergy (Unknown, Verified 03/19/25 13:37) itchy body Sulfa (Sulfonamide Antibiotics) Allergy (Unknown, Verified 03/19/25 13:37) Itchy palms sulfamethoxazole (From Bactrim) Allergy (Unknown, Verified 03/19/25 13:37) itchy palms trimethoprim (From Bactrim) Allergy (Unknown, Verified 03/19/25 13:37) itchy palms Macrolide Antibiotics Allergy (Verified 03/19/25 13:37) Unknown prednisone Allergy (Verified 03/19/25 13:37) Flushing tetracycline Allergy (Verified 03/19/25 13:37) Unknown Carditone Allergy (Unknown, Uncoded 03/19/25 13:37) Swelling of feet/legs; itchy body Medication List - Last Reconciled 03/19/25 by Pierre Sarkar PA-C amlodipine 5 mg PO DAILY furosemide 30 mg (1.5 x 20 mg) PO DAILY 90 days lisinopril 40 mg PO DAILY 90 days metoprolol succinate ER 100 mg PO DAILY 90 days thyroid (pork) ([place] Thyroid) 60 mg PO DAILY HPI HPI 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 She states she has been experiencing left hip pain for quite a while and in December of this year she suddenly had worsening pain which prompted her to be seen in the urgent care clinic. X-rays were obtained in the clinic which were significant for osteoarthritis. She was referred to physical therapy and referred To our office for further follow up. The patient is quite active with Pilates and care's for herself and performs all ADLs. She states this hip pain has significantly limited her ability to perform daily activities. She has to walk with a cane. She has difficulty getting in and out of her car. She does notice limited rotation with her hip when she is performing exercises. [facility] Medical History Fall Dyslipidemia Colonoscopy refused Osteoporosis Hypothyroid HTN (hypertension) Aortic insufficiency Osteopenia CKD (chronic kidney disease) stage 3, GFR 30-59 ml/min Mitral valve disorder Surgical History History of breast biopsy History of tubal ligation Family History Father No problems noted. Mother Pancreatic cancer Social History Housing: Condominium Patient Tobacco Use Status: Former Tobacco user Years Smoked: 50 years ago e-Cigarette/Vaping Use: Never Used Second Hand Smoke Exposure: No service: No Current occupational status: retired Cognitive needs: No Hearing needs: No Vision needs: No Review of Systems Const All systems reviewed & are unremarkable except as noted in HPI and below Physical Exam Vital Signs: BMI result Body Mass Index 23.2 Const General: cooperative and no acute distress Orientation/consciousness: patient oriented x3 Resp Effort & Inspection: normal respiratory effort and able to speak in complete sentences Cardio Peripheral pulses: Peripheral pulses 2+ throughout Neuro General: patient oriented x3 Extrem Other: Patient ambulates with a cane with antalgic gait pattern. She has pain with internal rotation. Calf supple and nontender neurovascularly intact. Assessment & Plan Assessment & Plan (1) Osteoarthritis of left hip: Code(s): M16.12 - Unilateral primary osteoarthritis, left hip Category: Medical Plan: We had a lengthy discussion about the extent of her OA and options available which include surgical intervention. She is interested in pursuing Total hip arthroplasty to improve her functional capacity and daily activities. I explained to her the procedure in detail, the hospital stay and details about post op rehab and precautions. She does understand all this and would like to move forward. She will make an appointment with Dr. Selby to discuss further. All questions were answered. Orders: Orders XR pelvis 1-2V Today M25.559 - Pain in unspecified hip Coding Level of Care Code New Pt Level 4 (80303) Complex EM visit Add On G2211 Diagnoses Osteoarthritis of left hip M16.12
[2025-03-19 13:38] VITALS: BMI 23.2
--- OUTSIDE RECORDS SUMMARY | 2025-03-19 14:31 | XMS_ITS | Clinical Summary ---
Author Organization [facility] Address [address] [address] Phone Care Team Providers Care World Geography Teacher Name Role Phone Unavailable Primary Care Provider Unavailabl e Allergies Active Allergy Reactions Criticality Noted Date Comments Adhesive Tape 10/22/2020 Amlodipine 10/22/2020 Bacitracin 10/22/2020 Sulfamethoxazole-Trimethoprim Other (see comments) 10/22/2020 Penicillin G Benzathine Rash Low 10/22/2020 Brompheniramine 10/22/2020 Calcium 10/22/2020 Calcium Carbonate 10/22/2020 Cefaclor 10/22/2020 Chlorpheniramine 10/22/2020 Clindamycin Other (see comments) 10/22/2020 Pztsfjf-Bksnhrpq-Eiabitnil-Hc Other (see comments) 06/01/2021 Propoxyphene 10/22/2020 Dexbrompheniramine 10/22/2020 Chlorpheniramine-Dm Other (see comments) 2020 Diphenhydramine Other (see comments) 10/22/2020 Doxazosin 10/22/2020 Dexbrompheniramine-Pseudoeph Other (see comments) 06/01/2021 Erythromycin 10/22/2020 Gentamicin 10/22/2020 Garlic 10/22/2020 Ginkgo Biloba 10/22/2020 Guaifenesin 10/22/2020 Hydralazine 10/22/2020 Hydrochlorothiazide Other (see comments) 2020 Hydrocortisone 10/22/2020 Latex Other (see comments) 06/01/2021 Meclizine 10/22/2020 Methylsulfonylmethane 10/22/2020 Hcyoqbftdrguzlq-Dm-Wkvz Other (see comments) Nebivolol 10/22/2020 Nebivolol Hcl [...] [facility] [place] [address] Medicare [facility]
--- OUTSIDE RECORDS SUMMARY | 2025-03-19 14:31 | XMS_ITS | Clinical Summary ---
Author Organization [facility] Address [address] [place] [address] Phone Care Team Providers Care Electric Pile Driver Operator Name Role Phone Juan C Skelton [...] 05/22/2022 Social Influencers of Health Screening 05/22/2022 Depression Screening 06/19/2024 COVID-19 Vaccine (3 - 2024-2 6 season) 2025 03/16/2021, 09/15/2020 Influenza Vaccine (#1) 2025 Pneumococcal Vaccine: 50+ [...] age to complete this topic Insurance MEDICARE [facility] Care Teams Electric Pile Driver Operator Relationship Specialty Start Date End Date Juan C Skelton FIELD AUDITOR PCP - General Family Medicine 05/27/24
== END 2025-03-19 14:09 | disposition home or self-care (01) ==
LOC: HO.HOS 13:20
PROVIDERS: PCP Nurse Practitioner Family; Visit Provider Physician Assistant
DX: M16.12 Unilateral primary osteoarthritis, left hip (principal)
CPT/HCPCS: 99204; G2211

== ENCOUNTER → 2025-03-19 13:25 | Outpatient (BNV) | payer MEDICARE, BC, SELFPAY | PROVIDERS: Visit Provider Radiology Diagnostic Radiology | DX: M16.0 Bilateral primary osteoarthritis of hip (principal) | CPT/HCPCS: 72170 ==

== ENCOUNTER 2025-03-26 08:53 | Outpatient (AMB) | payer MEDICARE, BC, SELFPAY ==
--- NOTE | 2025-03-26 08:59 | MHC.PC.OV ---
Vital Signs 03/26/25 09:04 Height 5 ft 4 in Weight 135 lb BMI 23.2 BP 160/74 H Blood Pressure Location Lt brachial Position Sitting Respiration 16 Pulse 74 Pulse Source Pulse Oximeter Temp 98.2 F Temp Source Oral Pulse Oximetry (%) 100 Oxygen Delivery Method Room Air Intake Visit Reasons: 6m follow up Activity Aide Required: No Accompanied by: Self / Same As Patient Allergies adhesive tape Allergy (Unknown, Verified 03/26/25 09:09) hives amlodipine (From Norvasc) Allergy (Unknown, Verified 03/26/25 09:09) Swelling od hands/feet bacitracin (From Cortisporin) Allergy (Unknown, Verified 03/26/25 09:09) Eye irritation brompheniramine (From Dimetapp Cold-Allergy (PE)) Allergy (Unknown, Verified 03/26/25 09:09) Body Rash calcium (From DHEA) Allergy (Unknown, Verified 03/26/25 09:09) Unknown calcium carbonate (From DHEA) Allergy (Unknown, Verified 03/26/25 09:09) Unknown cefaclor Allergy (Unknown, Verified 03/26/25 09:09) Perineum rash chlorpheniramine (From Fedahist) Allergy (Unknown, Verified 03/26/25 09:09) Body Rash clindamycin Allergy (Unknown, Verified 03/26/25 09:09) GI upset/pain/vomiting devil's claw Allergy (Unknown, Verified 03/26/25 09:09) unsure reaction dexbrompheniramine (From Drixoral) Allergy (Unknown, Verified 03/26/25 09:09) Body Rash diphenhydramine (From Benadryl) Allergy (Unknown, Verified 03/26/25 09:09) Body Rash doxazosin Allergy (Unknown, Verified 03/26/25 09:09) Extreme anxiety erythromycin base Allergy (Unknown, Verified 03/26/25 09:09) Perineum rash garlic Allergy (Unknown, Verified 03/26/25 09:09) Unknown gentamicin (From Garamycin) Allergy (Unknown, Verified 03/26/25 09:09) [eye drops] Eye swelling ginkgo biloba Allergy (Unknown, Verified 03/26/25 09:09) piercing pain in head guaifenesin (From Fedahist) Allergy (Unknown, Verified 03/26/25 09:09) Body Rash hydralazine Allergy (Unknown, Verified 03/26/25 09:09) Swelling of feet/legs hydrochlorothiazide Allergy (Unknown, Verified 03/26/25 09:09) Itchy palms hydrocortisone (From Cortisporin) Allergy (Unknown, Verified 03/26/25 09:09) Eye irritation meclizine Allergy (Unknown, Verified 03/26/25 09:09) very dry mouth methylsulfonylmethane (From MSM) Allergy (Unknown, Verified 03/26/25 09:09) Itchy palms nebivolol (From Bystolic) Allergy (Unknown, Verified 03/26/25 09:09) Swelling of feet/ legs neomycin (From Cortisporin) Allergy (Unknown, Verified 03/26/25 09:09) Eye irritation nifedipine (From Procardia) Allergy (Unknown, Verified 03/26/25 09:09) Swelling of feet and legs nut - unspecified Allergy (Unknown, Verified 03/26/25 09:09) mouth sores Peanut Butter Allergy (Unknown, Verified 03/26/25 09:09) mouth sores penicillin V Allergy (Unknown, Verified 03/26/25 09:09) Body rash Penicillins Allergy (Unknown, Verified 03/26/25 09:09) body rash phenylephrine (From Dimetapp Cold-Allergy (PE)) Allergy (Unknown, Verified 03/26/25 09:09) Body Rash polymyxin B (From Cortisporin) Allergy (Unknown, Verified 03/26/25 09:09) Eye irritation prasterone (DHEA) (From DHEA) Allergy (Unknown, Verified 03/26/25 09:09) Unknown propoxyphene (From Darvon) Allergy (Unknown, Verified 03/26/25 09:09) Unknown pseudoephedrine (From Drixoral) Allergy (Unknown, Verified 03/26/25 09:09) Body Rash shellfish derived Allergy (Unknown, Verified 03/26/25 09:09) itchy body Sulfa (Sulfonamide Antibiotics) Allergy (Unknown, Verified 03/26/25 09:09) Itchy palms sulfamethoxazole (From Bactrim) Allergy (Unknown, Verified 03/26/25 09:09) itchy palms trimethoprim (From Bactrim) Allergy (Unknown, Verified 03/26/25 09:09) itchy palms Macrolide Antibiotics Allergy (Verified 03/26/25 09:09) Unknown prednisone Allergy (Verified 03/26/25 09:09) Flushing tetracycline Allergy (Verified 03/26/25 09:09) Unknown Carditone Allergy (Unknown, Uncoded 03/19/25 13:37) Swelling of feet/legs; itchy body Medication List - Last Reconciled 03/26/25 by DARRYL BaumannP- amlodipine 5 mg PO DAILY furosemide 30 mg (1.5 x 20 mg) PO DAILY 90 days lisinopril 40 mg PO DAILY 90 days metoprolol succinate ER 100 mg PO DAILY 90 days thyroid (pork) ([place] Thyroid) 60 mg PO DAILY Tobacco use date assessed: 03/26/25 Fall risk assessment: No Falls in past year Last assessed Fall Risk: 03/26/25 Dental Screening Dental Screen Date: 03/26/25 Did you have a dental visit in the last 12 months?: Yes Did you have a dental problem in the last 6 months where you did not have access to dental care?: No Was dental information given to patient?: Patient has dentist HPI 6m follow up HPI Details Chief Complaint The patient is apprehensive about undergoing left total hip replacement surgery due to severe pain and degeneration. History of Present Illness The patient is a 79-year-old female presenting with left hip degeneration. She experiences moderate to severe degeneration of the left hip, resulting in a noticeable change in lower extremity length and favoring of the right side. The patient reports severe pain in the left hip and is currently using a cane for mobility. The patient has hypertension, which is exacerbated by white coat syndrome, as evidenced by stable blood pressure readings at home. She has a history of aortic insufficiency and mitral valve disorder, for which a repeat echocardiogram is planned. The patient is also on thyroid medication, indicating a history of thyroid disorder. Social History Health Maintenance Review of Systems - Cardiovascular: Denies chest pain, denies dizziness - Respiratory: Denies shortness of breath - Neurological: Denies blurred vision, denies headaches Physical Exam General: Cooperative, healthy appearing, comfortable, no acute distress and well developed Orientation: Patient oriented x3 Limitations: No limitations Head: Normal to inspection Ears: Hearing grossly normal bilaterally Nose: Normal external nose present Face and sinus: Normal facial exam Eyes: Appearance normal, both eyes and all related structures Neck: Normal visual inspection and Yes full ROM Respiratory: Normal respiratory effort and able to speak in complete sentences. Clear to auscultation bilaterally Cardiovascular: Regular rate and rhythm. Systolic murmur noted. Normal S1 and S2 GI: Normal to inspection. Soft to palpation and nontender Skin: No rashes or lesions noted Neuro: Patient oriented x3 Extremities: Leg discrepancy in length, left seems shorter than right. Patient is using a cane. Normal to inspection Results Plan 1. Left Hip Degeneration The patient is advised to proceed with left total hip replacement surgery to improve quality of life and alleviate severe pain. She is encouraged to discuss her concerns and questions with the orthopedic surgeon during her upcoming consultation. 2. Hypertension With White Coat Syndrome The patient's home blood pressure readings are stable, and no changes to her antihypertensive regimen are necessary at this time. 3. Aortic Insufficiency A repeat echocardiogram is planned to monitor the patient's aortic insufficiency and mitral valve disorder. 4. Thyroid Disorder The patient continues on her current thyroid medication regimen. Discussion Notes I discussed with the patient the necessity of the left total hip replacement surgery to improve her quality of life and alleviate pain. I encouraged her to address any questions with the orthopedic surgeon during her consultation. We reviewed her stable home blood pressure readings and decided no changes to her medication were needed. I also planned a repeat echocardiogram to monitor her aortic insufficiency and mitral valve disorder. Patient Instructions - Follow up with the orthopedic surgeon to discuss hip replacement surgery. - Continue current blood pressure and thyroid medications as prescribed. - Schedule and complete the repeat echocardiogram as planned. [facility] Medical History Fall Dyslipidemia Colonoscopy refused Osteoporosis Hypothyroid HTN (hypertension) Aortic insufficiency Osteopenia CKD (chronic kidney disease) stage 3, GFR 30-59 ml/min Mitral valve disorder Surgical History History of breast biopsy History of tubal ligation Family History Father No problems noted. Mother Pancreatic cancer Social History [facility]: [facility] Patient Tobacco Use Status: Former Tobacco user Years Smoked: 50 years ago e-Cigarette/Vaping Use: Never Used Second Hand Smoke Exposure: No service: No Current occupational status: retired Cognitive needs: No Hearing needs: No Vision needs: No Questionnaire PHQ-9 Over the last 2 weeks, how often have you been bothered by any of the following problems? 1. Little interest or pleasure in doing things: not at all 2. Feeling down, depressed, or hopeless: not at all 3. Trouble falling or staying asleep, or sleeping too much: not at all 4. Feeling tired or having little energy: not at all 5. Poor appetite or overeating: not at all 6. Feeling bad about yourself - or that you are a failure or have let yourself or your family down: not at all 7. Trouble concentrating on things, such as reading the newspaper or watching television: not at all 8. Moving or speaking so slowly that other people could have noticed. Or the opposite - being so fidgety or restless that you have been moving around a lot more than usual: not at all 9. Thoughts that you would be better off or of hurting yourself in some way: not at all Total score: 0 Depression Screening Interpretation: Negative Depression Screening Done: Yes 18004 - PHQ-9 Billing: Yes Source: Developed by Drs. Maximiliano Sumner, Ekaterina Khan, Ar Del Cid and colleagues, with an educational meagan from [employer]. Thrive Questionnaire Date Thrive assessed: 09/23/24 I am a: Patient What is your living situation today?: I choose not to answer this question Within the past 12 months, did the food you bought not last and you didn't have the money to get more?: I choose not to answer this question Within the past 12 months, did you worry whether your food would run out before you got money to buy more?: I choose not to answer this question Do you have trouble paying for medicines?: I choose not to answer this question Do you have trouble getting transportation to medical appointments?: I choose not to answer this question Do you have trouble paying your heating and electricity bill?: I choose not to answer this question Do you have trouble taking care of your child, family member or friend?: I choose not to answer this question Do you have trouble with day-to-day activities such as bathing, preparing meals, shopping, managing finances, etc.?: I choose not to answer this question Are you currently unemployed and looking for a job?: I choose not to answer this question Are you interested in more education?: I choose not to answer this question Please select the resources that you would like help with: None Currently or been in a relationship where the following occur: I choose not to answer THRIVE Score: 0 AUDIT C Alcohol Use Questionnaire (AUDIT-C) 1. How often do you have a drink containing alcohol?: Never Total Score: 0 CHASITY-7 AMB Questionnaire CHASITY-7 Date CHASITY - 7 assessed: 03/26/25 Feeling nervous, anxious, or on edge: 0 = Not at all Not being able to stop or control worryin = Not at all Worrying too much about different things: 0 = Not at all Trouble relaxin = Not at all Being so restless that it is hard to sit still: 0 = Not at all Becoming easily annoyed or irritable: 0 = Not at all Feeling afraid as if something awful might happen: 0 = Not at all Total CHASITY-7 score (0-4 normal; 5-9 mild; 10-14 moderate; 15-21 severe): 0 Source: Developed by Drs. Maximiliano Sumner, Ekaterina Khan, Ar Del Cid and colleagues, with an educational meagan from [employer]. CHASITY-7 Assessment Billing CHASITY-7 Assessment Tool: CHASITY-7 Assessment 65471 Physical exam (Primary Care) Vital Signs: Last Vital Signs Temp 98.2 F 03/26/25 09:04 Pulse 74 03/26/25 09:04 Resp 16 03/26/25 09:04 BP 160/74 H 03/26/25 09:04 Pulse Ox 100 03/26/25 09:04 Oxygen Delivery Method Room Air 03/26/25 09:04 BMI result Body Mass Index 23.2 Tobacco/Smoking Status: Tobacco use Status Tobacco use date assessed 03/26/25 03/26/25 09:10 Patient Tobacco Use Status Former Tobacco user 03/26/25 09:00 e-Cigarette/Vaping Use Never Used 03/26/25 09:00 PHQ-9: PHQ-9 Score PHQ-9: Total score 0 03/26/25 09:10 Depression Screening Interpretation: Negative Thrive Assessment: Date of Thrive Assessment Date Thrive assessed 09/23/24 03/26/25 09:00 Currently or been in a relationship where the following occur: I choose not to answer Coding Level of Care Code Est Pt Level 3 (01970) Diagnoses Osteoarthritis of left hip M16.12 Essential hypertension I10 Hypertension type: essential hypertension Osteoporosis M81.0 Vitamin D deficiency E55.9 Mitral valve disorder I05.9 Aortic insufficiency I35.1 Systolic murmur R01.1 Additional Codes CHASITY-7 Assessment Billing - CHASITY-7 Assessment Tool: CHASITY-7 Assessment 53150 ([id number]) PHQ-9 - 08677 - PHQ-9 Billing: Yes ([id number]) Assessment & Plan Assessment & Plan (1) Osteoarthritis of left hip: Code(s): M16.12 - Unilateral primary osteoarthritis, left hip Category: Medical (2) Hypertension: Code(s): I10 - Essential (primary) hypertension Category: Medical Qualifiers: Hypertension type: essential hypertension Qualified Code(s): I10 - Essential (primary) hypertension (3) Osteoporosis: Code(s): M81.0 - Age-related osteoporosis without current pathological fracture Category: Medical (4) Vitamin D deficiency: Code(s): E55.9 - Vitamin D deficiency, unspecified Category: Medical (5) Mitral valve disorder: Code(s): I05.9 - Rheumatic mitral valve disease, unspecified Category: Medical (6) Aortic insufficiency: Code(s): I35.1 - Nonrheumatic aortic (valve) insufficiency Category: Medical (7) Systolic murmur: Code(s): R01.1 - Cardiac murmur, unspecified Category: Medical Plan . Orders: Orders TSH reflex Free T4 Today I10 - Essential (primary) hypertension UA CC w/rflx Micro + Cult Today I10 - Essential (primary) hypertension Vitamin D 25-OH Total Today E55.9 - Vitamin D deficiency, unspecified, M81.0 - Age-related osteoporosis without current pathological fracture Complete Blood Count Auto Diff Today I10 - Essential (primary) hypertension Comprehensive [place]. Panel Fast Today I10 - Essential (primary) hypertension Lipid Panel Today I10 - Essential (primary) hypertension CA echo transthoracic complete Today I05.9 - Rheumatic mitral valve disease, unspecified, I35.1 - Nonrheumatic aortic (valve) insufficiency, R01.1 - Cardiac murmur, unspecified
[2025-03-26 09:04] VITALS: BP 160/74; PULSE 74; RESP 16; TEMP 36.8; O2SAT 100; BMI 23.2
== END 2025-03-26 09:59 | disposition home or self-care (01) ==
LOC: HO.HMCC 08:54
PROVIDERS: PCP Nurse Practitioner Family; Visit Provider Nurse Practitioner Family
DX: M16.12 Unilateral primary osteoarthritis, left hip (principal); I10 Essential (primary) hypertension; M81.0 Age-related osteoporosis without current pathological fracture; E55.9 Vitamin D deficiency, unspecified; I05.9 Rheumatic mitral valve disease, unspecified; I35.1 Nonrheumatic aortic (valve) insufficiency; R01.1 Cardiac murmur, unspecified

== ENCOUNTER → 2025-03-26 08:53 | Outpatient (BNVA) | payer MEDICARE, BC, SELFPAY | PROVIDERS: PCP Nurse Practitioner Family; Visit Provider Nurse Practitioner Family | DX: I10 Essential (primary) hypertension (principal); I35.1 Nonrheumatic aortic (valve) insufficiency; M16.12 Unilateral primary osteoarthritis, left hip; M81.0 Age-related osteoporosis without current pathological fracture; E55.9 Vitamin D deficiency, unspecified; I05.9 Rheumatic mitral valve disease, unspecified; R01.1 Cardiac murmur, unspecified; Z99.89 Dependence on other enabling machines and devices; Z79.899 Other long term (current) drug therapy | CPT/HCPCS: 96127; 99212 ==

== ENCOUNTER 2025-04-17 11:58 | Outpatient (REF) | payer MEDICARE, BC, SELFPAY ==
--- OUTSIDE RECORDS SUMMARY | 2024-08-28 07:15 | XMS_ITS ---
Author Organization [facility] Address [address] [place] [address] Care Team Providers Care Director Trial Name Role Phone Juan C Fuentes Primary Care Provider Unav ailable Juan RFouziaugtierrez Sanders [phone] Encounters Encounter Location Date Provider Diagnosis [address] [address] 08/28/2024 Melissa Pete Plan Of Treatment Next Appt Details Provider Name:Melissa Pete , 05/20/2025 01:00:00 PM, [address] [facility], [place], [address], Progress Notes * Naomy BLACK LDOB:1945 (79 yo F)Acc No.[id number]:08/28/2024 Progress Note Patient: Jesus TINSLEY Naomy Escobar Provider: Suzanna Pete DPM :1945 A ge:79 Y S ex:Female Date:08/28/2024 Address:[address], [place] Pcp:BINH Zazueta Subjective: * Chief Complaints: * [...] 08/28/2024 Generated for Printi ng/Milly/Cecilyitting on: 1 02:56 PM EDT
--- NOTE | ~2025-04-17 | XR_ITS ---
EXAMINATION: XR PELVIS 1-2 VIEWS HISTORY: M25.559 - Pain in unspecified hip COMPARISON: Comparison is made with the prior examination dated 03/19/2025. FINDINGS: A single AP view of the pelvis is submitted. The bones are osteopenic. There is no fracture or dislocation. Again seen is mild narrowing of the right hip. There is severe osteoarthritis of the left hip joint space narrowing, osteophyte formation, and mild acetabular protrusio. There is levoscoliosis and degenerative disc disease of the spine. There is a large amount of stool throughout the colon. XR/XR pelvis 1-2V IMPRESSION: Mild osteoarthritis of the right hip. Severe osteoarthritis of the left hip. Electronically signed by: Maximiliano Kessler MD 04/17/2025 03:07 PM EDT
--- OUTSIDE RECORDS SUMMARY | 2025-04-17 14:57 | XMS_ITS | Clinical Summary ---
Author Organization [facility] Address [address] [place] [address] [place] [address] Phone Care Team Providers Care Associate Justice Name Role Phone Unavailable Primary Care Provider Unavailabl e Allergies Active Allergy Reactions Criticality Noted Date Comments Adhesive Tape 10/22/2020 Amlodipine 10/22/2020 Bacitracin 10/22/2020 Sulfamethoxazole-Trimethoprim Other (see comments) 10/22/2020 Penicillin G Benzathine Rash Low 10/22/2020 Brompheniramine 10/22/2020 Calcium 10/22/2020 Calcium Carbonate 10/22/2020 Cefaclor 10/22/2020 Chlorpheniramine 10/22/2020 Clindamycin Other (see comments) 10/22/2020 Gzkhxap-Nwmhqwjk-Hwhzdavei-Hc Other (see comments) 06/01/2021 Propoxyphene 10/22/2020 Dexbrompheniramine 10/22/2020 Chlorpheniramine-Dm Other (see comments) 2020 Diphenhydramine Other (see comments) 10/22/2020 Doxazosin 10/22/2020 Dexbrompheniramine-Pseudoeph Other (see comments) 06/01/2021 Erythromycin 10/22/2020 Gentamicin 10/22/2020 Garlic 10/22/2020 Ginkgo Biloba 10/22/2020 Guaifenesin 10/22/2020 Hydralazine 10/22/2020 Hydrochlorothiazide Other (see comments) 2020 Hydrocortisone 10/22/2020 Latex Other (see comments) 06/01/2021 Meclizine 10/22/2020 Methylsulfonylmethane 10/22/2020 Uctohetnsqfduax-Dx-Lxjt Other (see comments) Nebivolol 10/22/2020 Nebivolol Hcl Other (see comments) 06/01/2021 Neomycin 10/22/2020 Nifedipine 10/22/2020 Penicillin V 10/22/2020 Penicillins 10/22/2020 Phenylephrine 10/22/2020 Polymyxin B 10/22/2020 Prasterone 10/22/2020 Pseudoephedrine 10/22/2020 Shellfish Protein-Containing Drug Products Other (see comments) 06/01/2021 Sulfa Antibiotics [...] age to complete this topic Insurance Medicare [facility] [place] [id number] Medicare [facility]
--- OUTSIDE RECORDS SUMMARY | 2025-04-17 14:57 | XMS_ITS | Clinical Summary ---
Author Organization [facility] Address [address] [place] [address] Phone Care Team Providers Care Bug Trimmer Name Role Phone Juan C Skelton NP [...] age to complete this topic Insurance MEDICARE [facility] Care Teams Bug Trimmer Relationship Specialty Start Date End Date Juan C Skelton CANDLE [employer]ACHINE PCP - General Family Medicine 05/27/24
--- OUTSIDE RECORDS SUMMARY | 2025-04-17 14:57 | XMS_ITS | Patient Health Record ---
Author Organization [facility] Address [address] [place] [address] Care Team Providers Care Soap Press Feeder Name Role Phone Juan C Fuentes Primary Care Provider Unav ailable BlackMelissa Unavailable [phone] Allergies Allergen (clinical drug ingredient) Drug/Non Drug [...] Prod 25 100 mg Orally daily Active [place] Thyroid 60 MG 1 tablet Orally Onc [...] primary osteoarthritis of the ankle and/or foot (226174663) Primary osteoarthritis, 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 confirmed Problem Osteoarthritis of midtarsal joint of left foot (5167382364237249 ) Osteoarthritis of midtarsal joint of left foot (M19.072) Active confirmed Problem Osteoarthritis of midtarsal joint of right foot (9662822962016177 ) 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 Vital Signs Blood pressure diastolic 70 mm Hg 02/18/2025 Height 5 ft 3 in in 02/18/2025 Blood pressure systolic 130 mm Hg 02/18/2025 Weight 128 lbs 02/18/2025 BMI 22.67 kg/m2 02/18/2025 Procedures Procedure Date Ordered Date Performed Result Body Sit e 91554-XKKURCC NAIL, 1-5 08/27/2024 N/A 02460-Vdyopwyx Plate 08/27/2024 N/A Encounters Encounter Location Date Provider Diagnosis [address] [address] 04/24/2024 Melissa Black Tinea unguium B35.1 ; Pain in right toe(s) M79.674 ; Pain in left toe(s) M79.675 ; Pain in left foot M79.672 and Peroneal tendinitis of left lower extremity M76.[address] [address] 08/27/2024 Melissa Black Ingrown nail L60.0 ; Onychomycosis B35.1 and Pain in left toe(s) M79.[address] [address] 11/26/2024 Melissa Black Primary osteoarthrit is, left ankle and foot M19.072 and Acute left ankle pain M25.[address] [address] 02/18/2025 Melissa Black Pain in left foot [...] X ray : Foot, left 3V 03/22/2022 20498-ZHSKWDZ NAIL, 1-5 05/17/2022 72557-JBVQIXJ NAIL, 1-5 09/13/2022 00688-IIRYFJU NAIL, 1-5 01/10/2023 07844-SQHLSAK NAIL, 1-5 05/03/2023 17712-ASVDELF NAIL, -09/13/2023 15955-ZPTIFSF NAIL, -01/03/2024 74700-ILMQEEH NAIL, -04/05/2019 56219-SWFBFUS NAIL, -07/10/2019 64454-IAZXYTE NAIL, -11/05/2019 27307-SCANULL NAIL, -02/07/2020 26413-SGULNYU NAIL, 06-2305/08/2020 85740-HRIRGYY NAIL, 06-2308/14/2020 34282-MXYCZWF NAIL, -11/18/2020 14630-TYLZGSZ NAIL, -10/10/2014 92212-QNQLMNW NAIL, 06-2304/14/2015 94633-RNXVQIE NAIL, 06-2308/13/2015 70541-DPEDQAB NAIL, 06-2312/10/2015 71230-FTUGGKG NAIL, -11/17/2017 72072-ZVYQAUW NAIL, 06-2302/16/2018 00514-SRKZSPV NAIL, 06-2305/18/2018 47499-RNRYBLL NAIL, 06-2309/14/2018 79869-FQMVNNI NAIL, 06-2312/28/2018 05686-JOFWSYD NAIL, 06-2302/23/2021 70185-RDMXNBU NAIL, 06-2306/01/2021 35093-YLDNMHZ NAIL, 06-2309/08/2021 14873-PQNZXED NAIL, 06-2309/02/2013 06509-SWVMWGB NAIL, 06-2301/11/2022 20180-YQARGZF NAIL, 06-2308/27/2024 96860-Fopurrbf Plate 01/11/2022 77665-Ypxownos Plate 12/28/2018 26454-Gecnofqg Plate 04/05/2019 74443-Xbywyint Plate 05/18/2018 78253-Qvoxcseg Plate 01/05/2016 69859-Amovxhuu Plate 12/10/2015 04218-Shiaqwkj Plate 09/02/2013 65410-Dvgdnnvw Plate 11/29/2013 46404-Pypdqfpc Plate 07/02/2014 33956-Djgtnjdx Plate 02/23/2021 55437-Vuqscaol Plate 08/14/2020 65142-Tvkuqijq Plate 11/05/2019 04993-Wnorarjp Plate 08/27/2024 95284-Uklydddq Plate Each Additional 28693- Debride <25 sq cm 09/08/2021 Next Appt Details Provider Name:Melissa Pete , 05/20/2025 01:00:00 PM, [address] [facility], [place], [address], Insurance Providers Payer Name Payer Address Payer Phone Subscriber Number Group Number Insured Name Patient Relationship to Insured Coverage Start Date Coverage End Date Medicare [employer] [address] [place] [address] [id number] Naomy Hyman Self - patient is the insured [facility] [address] [place] [address] [phone] [id number] Naomy Hyman Self - patient is the insured Medical (General) History Medical History History ICD Code Arthritis back, hip, knee pain high blood pressure osteoporosis thyroid disorder mumps measles chicken pox Surgical History Surgery Date(Month/Year) appendectomy inguinal hernia repair tubal ligation Cataract sx 04/2022
== END 2025-04-17 11:59 | disposition home or self-care (01) ==
LOC: HO.HOSX 11:58
PROVIDERS: Visit Provider Orthopaedic Surgery
DX: M16.12 Unilateral primary osteoarthritis, left hip (principal); M16.11 Unilateral primary osteoarthritis, right hip
CPT/HCPCS: 72170; 99212

== ENCOUNTER 2025-04-17 14:50 | Outpatient (AMB) | payer MEDICARE, BC, SELFPAY ==
--- NOTE | 2025-04-17 14:59 | MHC.OFFVIS ---
Intake Visit Reasons: OV- Discuss Left SHIVA surgery Intake Note: Naomy is a 79 year old female who presents today for a follow up of her Left Hip OA, to discuss SHIVA. She was last seen with Pierre where she reported that she is able to complete all her ADLs but has difficulty getting in and out of the car. history of aortic insufficiency and mitral valve disorder Allergies adhesive tape Allergy (Unknown, Verified 03/26/25 09:09) hives amlodipine (From Norvasc) Allergy (Unknown, Verified 03/26/25 09:09) Swelling od hands/feet bacitracin (From Cortisporin) Allergy (Unknown, Verified 03/26/25 09:09) Eye irritation brompheniramine (From Dimetapp Cold-Allergy (PE)) Allergy (Unknown, Verified 03/26/25 09:09) Body Rash calcium (From DHEA) Allergy (Unknown, Verified 03/26/25 09:09) Unknown calcium carbonate (From DHEA) Allergy (Unknown, Verified 03/26/25 09:09) Unknown cefaclor Allergy (Unknown, Verified 03/26/25 09:09) Perineum rash chlorpheniramine (From Fedahist) Allergy (Unknown, Verified 03/26/25 09:09) Body Rash clindamycin Allergy (Unknown, Verified 03/26/25 09:09) GI upset/pain/vomiting devil's claw Allergy (Unknown, Verified 03/26/25 09:09) unsure reaction dexbrompheniramine (From Drixoral) Allergy (Unknown, Verified 03/26/25 09:09) Body Rash diphenhydramine (From Benadryl) Allergy (Unknown, Verified 03/26/25 09:09) Body Rash doxazosin Allergy (Unknown, Verified 03/26/25 09:09) Extreme anxiety erythromycin base Allergy (Unknown, Verified 03/26/25 09:09) Perineum rash garlic Allergy (Unknown, Verified 03/26/25 09:09) Unknown gentamicin (From Garamycin) Allergy (Unknown, Verified 03/26/25 09:09) [eye drops] Eye swelling ginkgo biloba Allergy (Unknown, Verified 03/26/25 09:09) piercing pain in head guaifenesin (From Fedahist) Allergy (Unknown, Verified 03/26/25 09:09) Body Rash hydralazine Allergy (Unknown, Verified 03/26/25 09:09) Swelling of feet/legs hydrochlorothiazide Allergy (Unknown, Verified 03/26/25 09:09) Itchy palms hydrocortisone (From Cortisporin) Allergy (Unknown, Verified 03/26/25 09:09) Eye irritation meclizine Allergy (Unknown, Verified 03/26/25 09:09) very dry mouth methylsulfonylmethane (From MSM) Allergy (Unknown, Verified 03/26/25 09:09) Itchy palms nebivolol (From Bystolic) Allergy (Unknown, Verified 03/26/25 09:09) Swelling of feet/ legs neomycin (From Cortisporin) Allergy (Unknown, Verified 03/26/25 09:09) Eye irritation nifedipine (From Procardia) Allergy (Unknown, Verified 03/26/25 09:09) Swelling of feet and legs nut - unspecified Allergy (Unknown, Verified 03/26/25 09:09) mouth sores Peanut Butter Allergy (Unknown, Verified 03/26/25 09:09) mouth sores penicillin V Allergy (Unknown, Verified 03/26/25 09:09) Body rash Penicillins Allergy (Unknown, Verified 03/26/25 09:09) body rash phenylephrine (From Dimetapp Cold-Allergy (PE)) Allergy (Unknown, Verified 03/26/25 09:09) Body Rash polymyxin B (From Cortisporin) Allergy (Unknown, Verified 03/26/25 09:09) Eye irritation prasterone (DHEA) (From DHEA) Allergy (Unknown, Verified 03/26/25 09:09) Unknown propoxyphene (From Darvon) Allergy (Unknown, Verified 03/26/25 09:09) Unknown pseudoephedrine (From Drixoral) Allergy (Unknown, Verified 03/26/25 09:09) Body Rash shellfish derived Allergy (Unknown, Verified 03/26/25 09:09) itchy body Sulfa (Sulfonamide Antibiotics) Allergy (Unknown, Verified 03/26/25 09:09) Itchy palms sulfamethoxazole (From Bactrim) Allergy (Unknown, Verified 03/26/25 09:09) itchy palms trimethoprim (From Bactrim) Allergy (Unknown, Verified 03/26/25 09:09) itchy palms Macrolide Antibiotics Allergy (Verified 03/26/25 09:09) Unknown prednisone Allergy (Verified 03/26/25 09:09) Flushing tetracycline Allergy (Verified 03/26/25 09:09) Unknown Carditone Allergy (Unknown, Uncoded 03/19/25 13:37) Swelling of feet/legs; itchy body HPI HPI OV- Discuss Left SHIVA surgery: Details: Naomy is a 79 year old female who presents today for a follow up of her Left Hip OA, to discuss SHIVA. She was last seen with Pierre where she reported that she is able to complete all her ADLs but has difficulty getting in and out of the car. Than being very sensitive to medication list she has medical problems according. She has hypertension and hypothyroidism with a history of a systolic murmur and mitral valve disorder with aortic insufficiency which she states is well controlled. She is extremely active but he has noticed that she is unable to engage in daily activities limping. She feels she can not walk without an assistive device internally walk short distances. She is no longer able to engage in either recreational or activities that involve ambulating. Her pain localizes to her left hip. She has both anterior and posterior and lateral pain around her left hip. She is here today with her daughter. [facility] Medical History (Updated 03/26/25 @ 09:48 by ANGIE Baumann) Fall Dyslipidemia Colonoscopy refused Osteoporosis Hypothyroid HTN (hypertension) Aortic insufficiency Osteopenia CKD (chronic kidney disease) stage 3, GFR 30-59 ml/min Mitral valve disorder Surgical History History of breast biopsy History of tubal ligation Family History Father No problems noted. Mother Pancreatic cancer Social History Housing: Condominium Patient Tobacco Use Status: Former Tobacco user Years Smoked: 50 years ago e-Cigarette/Vaping Use: Never Used Second Hand Smoke Exposure: No service: No Current occupational status: retired Cognitive needs: No Hearing needs: No Vision needs: No Physical Exam Exam Exam: Pleasant woman in no acute distress. Report of she has a a Trendelenburg gait. She is extremely limited in internal rotation on her left hip and this elicits pain. She has a positive Stinchfield test. Her skin is intact to light touch left lower extremity and she is firing EHL/tib ant/gastrocs. Results Reviewed Results Reviewed: I personally reviewed relevant radiographs. Mild right hip osteoarthritis and moderate to severe left hip osteoarthritis. Assessment & Plan Assessment & Plan (1) Osteoarthritis of left hip: Code(s): M16.12 - Unilateral primary osteoarthritis, left hip Category: Medical Plan: This is a 79-year-old with left hip osteoarthritis. She states she is very healthy and takes 2 medications but does have a history of aortic insufficiency and mitral valve disorder. She appears healthy and would like to be able to engage in her daily physical activities which she can not do because of her left hip. She has been using an assistive device and feels the quality of her life is diminished. We talked about treatment options including injections, physical therapy and activity modification as well as surgery. Given her lack of mobility and her desire to be active I recommend left hip arthroplasty. I discussed this surgery with her. I discussed the risks, benefits and alternatives of surgery including to, but not limited to, the risk of infection, fracture, dislocation, continued pain, need for further surgery as well as medical complications associated with surgery including blood clots, organ dysfunction, infection. She expressed understanding. We will begin preoperative clearance process. I will introduce her to nurse navigator. Orders: Orders XR pelvis 1-2V 04/17/25 M25.559 - Pain in unspecified hip Coding Level of Care Code Est Pt Level 4 (80222) Diagnoses Osteoarthritis of left hip M16.12
== END 2025-04-17 16:25 | disposition home or self-care (01) ==
LOC: HO.HOS 14:51
PROVIDERS: PCP Nurse Practitioner Family; Visit Provider Orthopaedic Surgery
DX: M16.12 Unilateral primary osteoarthritis, left hip (principal)
CPT/HCPCS: 99214

== ENCOUNTER → 2025-04-17 14:52 | Outpatient (BNV) | payer MEDICARE, BC, SELFPAY | PROVIDERS: Visit Provider Radiology Diagnostic Radiology | DX: M16.11 Unilateral primary osteoarthritis, right hip (principal) | CPT/HCPCS: 72170 ==

== ENCOUNTER → 2025-04-29 10:27 | Outpatient (REF) | payer MEDICARE, BC, SELFPAY ==
--- OUTSIDE RECORDS SUMMARY | 2024-08-28 06:15 | XMS_ITS ---
Author Organization [facility] Address [address] [facility] [place] [address] Care Team Providers Care Spray Gun Repairer Helper Name Role Phone Juan C Fuentes Primary Care Provider Unav ailable Juan RFouziagutierrez Sanders [phone] Encounters Encounter Location Date Provider Diagnosis [address] [address] 08/28/2024 Melissa Pete Plan Of Treatment Next Appt Details Provider Name:Melissa Pete , 05/20/2025 01:00:00 PM, [address] [facility], [place], [address], Progress Notes * Naomy LBACK LDOB:1945 (79 yo F)Acc No.[id number]:08/28/2024 Progress Note Patient: Jesus TINSLEY Naomy Escobar Provider: Suzanna Pete DPM :1945 A ge:79 Y S ex:Female Date:08/28/2024 Address:[address], [place] Pcp:BINH Zazueta Subjective: * Chief Complaints: * [...] DPM Date: 0 08/28/2024 Generated for Printi ng/Milly/Deborah on: 1 06/29/2024 12:04 PM EST
--- NOTE | 2025-04-29 10:30 | CA_ITS ---
Transthoracic Echocardiogram Patient (Last, First, Middle): Naomy Hyman L Gender: F Date of : 1945 Age: 79 Procedure Date: 04/29/2025 Procedure Type: Transthoracic Echocardiogram Location: OP Height: 162.56 cm Weight: 63.5 kg BSA: 1.68 m2 Heart Rate: 59 bpm BP: 180 / 70 mmHg Digital Marketing Assistant: SANDRA Goodson MD: Juan C Skelton [facility] Senior Restaurant Manager: Benji Gibson MD Symptoms: R01.1 - Cardiac murmur, unspecified Study Quality: Adequate, but could not tolerate ECG Rhythm: Sinus Conclusions: - 1. Hyperdynamic LV EF of greater than 70% with impaired relaxation filling pattern with elevated filling pressures 2. Mild aortic and mitral regurgitation with early mild aortic stenosis 3. Normal RV systolic pressure 4. No gross pericardial effusion Findings Procedure Information The study quality is limited by the patients inability to tolerate the test. Left Ventricle Normal left ventricular cavity size. There is normal left ventricular wall thickness. The left ventricular systolic function is hyperdynamic. The visually estimated ejection fraction is >70%. Spectral Doppler is indicative of an impaired relaxation filling pattern. Elevated filling pressures. E/E prime ratio is >15, consistent with elevated filling pressures. Right Ventricle Normal right ventricular cavity size and systolic function. Atria Both atria are normal in size. There is no evidence of interatrial shunt. Aortic Valve Normal aortic valve structure and function. There is no aortic valve stenosis. The peak aortic velocity is 1.91 m/s with a calculated peak gradient of 15 mmHg. The mean gradient is 7 mmHg. The aortic valve area is 2.26 cm2. There is mild aortic valve regurgitation. Mitral Valve There is mild anterior mitral leaflet thickening. There is mild mitral annular calcification. There is mild mitral valve regurgitation. There is no mitral valve stenosis. Pulmonic Valve The pulmonic valve is likely normal. Tricuspid Valve Normal tricuspid valve structure. There is mild tricuspid valve regurgitation. The right ventricular systolic pressure is normal. The right ventricular systolic pressure is 30 mmHg. Normal right atrial pressure. There is no evidence of pulmonary hypertension. Great Vessels The aorta was not well visualized. The pulmonary artery was not well visualized. There is no dilatation of the ascending aorta measuring 3.40 cm. Small plaque is seen in the sino tubular ridge. Venous The inferior vena cava is normal in size and collapses greater than 50% with inspiration. Pericardium/Pleural There is no evidence of pericardial effusion. Prior Study Comparison Changes noted compared to prior study dated: 06/02/2022. RV systolic pressure is measured to be within normal range Measurements 2D Linear Measurements IVSd: 0.89 0.6-0.9/0.6-1.0 cm LVIDd: 4.09 3.9-5.3/4.2-5.9 cm LVIDd Index: 2.43 2.4-3.2/2.2-3.1 cm/m2 LVIDs: 2.22 2.0-3.6 cm LVPWd: 0.84 0.7-1.1 cm LA Diam: 3.20 2.7-3.8/3.0-4.0 cm LAIDs Index: 1.90 1.5-2.3 cm/m2 LV Mass: 133.97 67-162/88-224 g LV Mass Index: 79.75 43-95/49-115 g/m2 LVOT Diam: 1.90 3.0+(-)1.3 cm 2D Systolic Function EF 4C: 72.30 >55% EF 2C: 77.40 >55% EF BiP: 75.40 >55% Mitral Valve MV Pk E: 1.16 MV PK A: 1.27 MV Decel Time: 181.00 E/A: 0.90 E'Lateral: 6.96 E'Medial: 6.96 E/E' Med: 16.70 E/E' Lat: 16.70 PHT: 53.00 MVA PHT: 4.15 Decel Pine: 6.42 Aortic Valve AoV Pk Oz: 1.91 AoV Mn Oz: 1.23 AoV VTI: 0.47 AoV Pk Grad: 15.00 Aov Mn Grad: 7.00 DAINA Cont.VTI: 2.26 AI Pk Oz: 4.71 AI VTI: 2.35 AI Pine: 3.31 AI Alias Oz: 0.39 AI RV - PISA: 19.00 ERO - PISA: 8.00 LVOT LVOT Pk Oz: 1.69 LVOT Mn Oz: 0.99 LVOT VTI: 0.37 LVOT Pk Grad: 11.00 LVOT Mn Grad: 5.00 LVOT Diam: 1.90 LVOT Area: 2.84 Diastolic Function MV Pk E: 1.16 MV Pk A: 1.27 E/A: 0.90 E'Medial: 6.96 E/E' Med: 16.70 E' Laterial: 6.96 E/E' Lat: 16.70 Right Ventricle TAPSE (mm): 31.50 TVS' Oz: 14.30 Tricuspid Valve TR Pk Oz: 2.61 TR Pk Grad: 27.00 RA Press: 3.00 RVSP: 30.00 Great Vessels Aorta Sinus of Valsalva: 3.40 2.0-3.5 cm Ao Asc: 3.40 2.1-3.4 cm Pulmonary Veins Pulm Vein S/D 1.40 Pulmonary Valve PV Pk Oz: 1.02 Peak PV Grad: 4.00 Updated in Other Vendor System with Status of Final Benji Gibson MD electronically signed on 04/29/2025 4:13:30 PM with status of Final
--- OUTSIDE RECORDS SUMMARY | 2025-04-29 12:04 | XMS_ITS | Clinical Summary ---
Author Organization [facility] Address [address] [place] [address] Phone Care Team Providers Care Neuropathologist Name Role Phone Juan C Skelton NP [...] age to complete this topic Insurance MEDICARE [facility] Care Teams Neuropathologist Relationship Specialty Start Date End Date Juan C Skelton STORAGE WHARFAGE CLERK PCP - General Family Medicine 05/27/24
--- OUTSIDE RECORDS SUMMARY | 2025-04-29 12:04 | XMS_ITS | Patient Health Record ---
Author Organization [facility] Address [address] [facility] [place] [address] Care Team Providers Care Senior Oracle Adf Developer Name Role Phone Juan C Fuentes Primary Care Provider Unav ailable BlackMelissa Unavailable [phone] Allergies Allergen (clinical drug ingredient) Drug/Non Drug [...] Prod 25 100 mg Orally daily Active [place] Thyroid 60 MG 1 tablet Orally Onc [...] primary osteoarthritis of the ankle and/or foot (476212099) Primary osteoarthritis, 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 confirmed Problem Osteoarthritis of midtarsal joint of left foot (1504126866184611 ) Osteoarthritis of midtarsal joint of left foot (M19.072) Active confirmed Problem Osteoarthritis of midtarsal joint of right foot (6535177096228839 ) 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 Vital Signs Blood pressure diastolic 70 mm Hg 02/18/2025 Height 5 ft 3 in in 02/18/2025 Blood pressure systolic 130 mm Hg 02/18/2025 Weight 128 lbs 02/18/2025 BMI 22.67 kg/m2 02/18/2025 Procedures Procedure Date Ordered Date Performed Result Body Sit e 73265-GUIUQPG NAIL, 1-5 08/27/2024 N/A 52135-Cltbyyei Plate 08/27/2024 N/A Encounters Encounter Location Date Provider Diagnosis [facility] [address] 08/27/2024 Melissa Black Ingrown nail L60.0 ; Onychomycosis B35.1 and Pain in left toe(s) M79.[address] [place] [address] 11/26/2024 Melissa Black Primary osteoarthrit is, left ankle and foot M19.072 and Acute left ankle pain M25.[address] [address] 02/18/2025 Melissa Black Pain in left foot [...] joints of left foot (ICD-10 - M25.572) 02/18/2025 Bursitis of left foot (ICD-10 - M77.52) 02/18/2025 Pain in right foot (ICD-10 - M79.671) 02/18/2025 Pain in right ankle and joints [...] X ray : Foot, left 3V 03/22/2022 66797-PFAOVLG NAIL, -05/17/2022 10074-HLSIRDX NAIL, -09/13/2022 93360-BKQHEIH NAIL, -01/10/2023 27842-ZTKURCC NAIL, -05/03/2023 76587-MEDKCAH NAIL, -09/13/2023 85894-KOJSOGF NAIL, -01/03/2024 03872-AWSBBVK NAIL, -04/05/2019 89922-POEGHNE NAIL, -07/10/2019 57247-XMZJGXK NAIL, -11/05/2019 13796-AJGNUNA NAIL, -02/07/2020 89381-YLEYOWA NAIL, -05/08/2020 06544-MGAMXGH NAIL, -08/14/2020 90660-WEYQUXB NAIL, -11/18/2020 18956-OUFCTSX NAIL, -10/10/2014 33464-NMQQOQK NAIL, -04/14/2015 97028-EYTKEUL NAIL, -08/13/2015 55317-HCPOSWS NAIL, -12/10/2015 06756-IGEWNPM NAIL, -11/17/2017 42913-OWSGAZZ NAIL, -02/16/2018 23535-EITWZUX NAIL, -05/18/2018 22833-HFXSMIX NAIL, -09/14/2018 46975-CNQCTGO NAIL, -12/28/2018 73110-FXWWIUA NAIL, -02/23/2021 00277-RRMWGOP NAIL, -06/01/2021 04934-ZPJIBXW NAIL, -09/08/2021 10008-KSIYACQ NAIL, -09/02/2013 84910-WSUIQAH NAIL, -01/11/2022 62392-KDWOQKU NAIL, 06-2308/27/2024 36329-Qgimpnhr Plate 01/11/2022 27198-Tthgbyry Plate 12/28/2018 62626-Rgihwvyt Plate 04/05/2019 30854-Pfpmjzmv Plate 05/18/2018 16928-Zxpkfehv Plate 01/05/2016 21630-Kfnobdzf Plate 12/10/2015 06604-Abntomqp Plate 09/02/2013 30351-Yufcmacv Plate 11/29/2013 52422-Obyncsvr Plate 07/02/2014 39964-Jenwufzq Plate 02/23/2021 33299-Aqhvqmyw Plate 08/14/2020 51341-Zofkzifn Plate 11/05/2019 66061-Gbfjorxw Plate 08/27/2024 25020-Nsgmtnew Plate Each Additional 04614- Debride <25 sq cm 09/08/2021 Next Appt Details Provider Name:Melissa Pete , 05/20/2025 01:00:00 PM, [address] [place], [address], Insurance Providers Payer Name Payer Address Payer Phone Subscriber Number Group Number Insured Name Patient Relationship to Insured Coverage Start Date Coverage End Date Medicare [facility] [address] [facility] [place] [address] [id number] Naomy Hyman Self - patient is the insured [facility] [address] [place] [address] [id number] Naomy Hyman Self - patient is the insured Medical (General) History Medical History History ICD Code Arthritis back, hip, knee pain high blood pressure osteoporosis thyroid disorder mumps measles chicken pox Surgical History Surgery Date(Month/Year) appendectomy inguinal hernia repair tubal ligation Cataract sx 04/2022
== END ==
LOC: HO.CARD 10:27
PROVIDERS: PCP Nurse Practitioner Family; Visit Provider Nurse Practitioner Family
DX: R01.1 Cardiac murmur, unspecified (principal); I05.9 Rheumatic mitral valve disease, unspecified; I35.1 Nonrheumatic aortic (valve) insufficiency
CPT/HCPCS: 93306

== ENCOUNTER → 2025-04-29 10:30 | Outpatient (BNV) | payer MEDICARE, BC, SELFPAY | PROVIDERS: PCP Nurse Practitioner Family; Visit Provider Internal Medicine Cardiovascular Disease | DX: I51.89 Other ill-defined heart diseases (principal); I35.0 Nonrheumatic aortic (valve) stenosis; I34.0 Nonrheumatic mitral (valve) insufficiency | CPT/HCPCS: 93306 ==

== ENCOUNTER 2025-06-05 09:43 | Outpatient (REF) | payer MEDICARE, BC, SELFPAY ==
--- OUTSIDE RECORDS SUMMARY | 2024-08-28 06:15 | XMS_ITS ---
Author Organization [facility] Address [address] [place] [address] Care Team Providers Care Well Head Pumper Name Role Phone Juan C Fuentes Primary Care Provider Unav ailable Juan R Melissa Sanders [phone] Encounters Encounter Location Date Provider Diagnosis [facility] [address] [place] [address] 08/28/2024 Melissa Pete Plan Of Treatment Next Appt Details Provider Name:Melissa Pete , 11/11/2025 11:00:00 AM, [address] [facility], [place], [address], Progress Notes * Naomy BLACK LDOB:1945 (79 yo F)Acc No.[id number]:08/28/2024 Progress Note Patient: Jesus TINSLEY Naomy Escobar Provider: Suzanna Pete DPM :1945 A ge:79 Y S ex:Female Date:08/28/2024 Address:[address], [place] Pcp:BINH Zazueta Subjective: * Chief Complaints: * * Medical History: Objective: * Vitals: Assessment: Plan: * Treatment: * Images: * The named appointment provid er may or may not be the originator of this progress note, and it is not deemed complete until electronically signed by the appointment provider. Sign off status: Pending * Provider: Suzanna Pete DPM Date: 0 08/28/2024 Generated for Printi ng/Milly/Cecilyitting on: 1 08/06/2024 11:26 AM EST
--- NOTE | ~2025-06-05 | MM_ITS ---
EXAMINATION: DXA BONE DENSITY AXIAL HISTORY: M81.0 - Age-related osteoporosis without current pathological fracture TECHNIQUE: [employer] Dual energy absorptiometry (DEXA) of the lumbar spine, total left hip, and femoral neck was performed. COMPARISON: Comparison is made with the prior examination dated 08/06/2021. FINDINGS: The bone mineral density of the lumbar spine is 0.948 g/cm2, corresponding to a T-score of -2.1, and a Z-score of -0.2. This is indicative of osteopenia. This represents a BMD change of 4.9% compared to the prior exam. This is statistically significant. The bone mineral density of the left total hip is 0.630 g/cm2, corresponding to a T-score of -3.0, and a Z-score of -0.9. This is indicative of osteoporosis. This represents a BMD change of 23.3% compared to the prior exam. This is statistically significant. The bone mineral density of the left femoral neck is 0.826 g/cm2, corresponding to a T-score of -1.5, and a Z-score of 0.7. This is indicative of osteopenia. This represents a BMD change of 53.2% compared to the prior exam. FRACTURE RISK: The FRAX index suggests a ten year probability of major osteoporotic fracture of 23.6%, and of hip fracture 13.5%. MM/XR DEXA axial skeleton IMPRESSION: Based on bone mineral density, and according to World Health Organization (WHO) criteria, the diagnosis is consistent with osteoporosis. Statistically, 68% of repeat scans fall within 1 SD (+/- 0.010 g/cm2 for AP spine L1-L4) and 1 SD (+/- 0.012 g/cm2 for femur total) FRAX is a trademark of the [employer]'s [employer] [facility] [employer], a World Health Organization (WHO) Collaborating Center. Electronically signed by: Maximiliano Kessler MD 06/05/2025 10:27 AM [facility] [place]
--- OUTSIDE RECORDS SUMMARY | 2025-06-05 11:27 | XMS_ITS | Clinical Summary ---
Author Organization [facility] Address [address] [place] [address] Phone Care Team Providers Care Job Analyst Name Role Phone Juan C Skelton NP [...] 06/17/2024 10:49 AM EST Plan of Treatment Upcoming Encounters Date Type Department Care Team (Late st Contact Info) Description 06/20/2025 1:30 PM EST Appointment [facility] [address] [address] Health Maintenance Due Date Last Done Comments [...] Screening 05/22/2022 Depression Screening 06/19/2024 COVID-19 Vaccine (2024-2 6 season) 2025 03/16/2021, 09/15/2020 Influenza Vaccine [...] age to complete this topic Insurance MEDICARE [facility] Care Teams Job Analyst Relationship Specialty Start Date End Date Juan C Skelton NP PCP - General Family Medicine 05/27/24
--- OUTSIDE RECORDS SUMMARY | 2025-06-05 11:27 | XMS_ITS | Patient Health Record ---
Author Organization [facility] Address [address] [place] [address] Care Team Providers Care Data Entry Coordinator Name Role Phone Juan C Fuentes Primary Care Provider Unav ailable BlackMelissa Unavailable [phone] Allergies Allergen (clinical drug ingredient) Drug/Non Drug [...] Duration) Notes Start Date End Date Status [place] Thyroid 60 MG 1 tablet Orally Onc e a day Active Lisinopril 40 MG 1 tablet Orally Once a day; Duration: 30 day(s) Active Metoprolol & Diet Manage Prod 25 100 mg Orally daily Active Bumetanide 0.5 MG 1 tablet Orally Once a day; Duration: 30 day(s) Not-Dylan ing Sertraline HCl 25 MG 1 tablet Orally Onc e a day Not-Taking Norvasc 5 MG 1 tablet Orally Once a day Active Work Note . . . PT was out of wo rk 08/15/13-09/20/13 due to stress fx of the right foot.Pt to return to work 09/23/13; Duration: . 09/18/2013 Not-Dylan ing Lasix 20 MG 1 tablet Orally Once a day Active Doxazosin Mesylate 1 MG 1/2 tablet Orall [...] primary osteoarthritis of the ankle and/or foot (029469245) Primary osteoarthritis, 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 confirmed Problem Osteoarthritis of midtarsal joint of left foot (8577880811794543 ) Osteoarthritis of midtarsal joint of left foot (M19.072) Active confirmed Problem Osteoarthritis of midtarsal joint of right foot (9010555181411908 ) 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 Vital Signs Blood pressure diastolic 70 mm Hg 05/20/2025 Height 5 ft 3 in in 05/20/2025 Blood pressure systolic 130 mm Hg 05/20/2025 Weight 128 lbs 05/20/2025 BMI 22.67 kg/m2 05/20/2025 Procedures Procedure Date Ordered Date Performed Result Body Sit e 91414-TALGNEC NAIL, 1-5 08/27/2024 N/A 94946-Nomyelxn Plate 08/27/2024 N/A 02279-Jszkapgg Plate 05/20/2025 N/A Encounters Encounter Location Date Provider Diagnosis [address] [address] 08/27/2024 Melissa Black Ingrown nail L60.0 ; Onychomycosis B35.1 and Pain in left toe(s) M79.[address] [address] 11/26/2024 Melissa Black Primary osteoarthrit is, left ankle and foot M19.072 and Acute left ankle pain M25.[address] [address] 02/18/2025 Melissa Black Pain in left foot [...] right foot M19.071 and Ingrown nail L60.[address] [address] 05/20/2025 Melissa Black Pain in left foot M79.672 [...] joint of left foot (ICD-10 - M19.072) 05/20/2025 Pain in left foot (ICD-10 - M79.672) 05/20/2025 Osteoarthritis of midtarsal joint of left foot (ICD-10 - M19.072) 08/27/2024 Pain in left toe(s) (ICD-10 - M79.675) 05/20/2025 Pain in left ankle and joints of left foot (ICD-10 - M25.572) 02/18/2025 Pain in left ankle and joints of left foot (ICD-10 - M25.572) 02/18/2025 Bursitis of left foot (ICD-10 - M77.52) 05/20/2025 Bursitis of left foot (ICD-10 - M77.52) 05/20/2025 Pain in right foot (ICD-10 - M79.671) 02/18/2025 Pain in right foot (ICD-10 - M79.671) 02/18/2025 Pain in right ankle and joints of right foot (ICD-10 - M25.571) 05/20/2025 Pain in right ankle and joints of right foot (ICD-10 - M25.571) 02/18/2025 Bursitis of right foot (ICD-10 - M77.51) 05/20/2025 Bursitis of right foot (ICD-10 - M77.51) 05/20/2025 Osteoarthritis of midtarsal joint of right foot (ICD-10 - M19.071) 02/18/2025 Osteoarthritis of midtarsal joint of right foot (ICD-10 - M19.071) 02/18/2025 Ingrown nail (ICD-10 - L60.0) 05/20/2025 Ingrown nail (ICD-10 - L60.0) Plan Of Treatment Pending Test Test Name Order Date X ray : Foot, right 2V 09/18/2013 Tc99 3 phase Bone Scan 08/08/2013 X ray : Foot, left 3V 03/22/2022 30103-EZSECCX NAIL, -05/17/2022 16899-RBASOGH NAIL, -09/13/2022 09932-OOUFBDZ NAIL, 06-2301/10/2023 27715-FDCQHKU NAIL, 06-2305/03/2023 36304-LFYSREB NAIL, 06-2309/13/2023 17561-MYQZMYM NAIL, 06-2301/03/2024 41917-PZEOKGN NAIL, 06-2304/05/2019 19450-ZBXSDSR NAIL, 06-2307/10/2019 98801-GQYGKUK NAIL, 06-2311/05/2019 34174-TSAMYFU NAIL, 06-2302/07/2020 29078-OYDEJVD NAIL, 06-2305/08/2020 04991-LUUOADN NAIL, 06-2308/14/2020 37229-GBHGKEV NAIL, 06-2311/18/2020 55814-ZVUWNFW NAIL, 06-2310/10/2014 97022-ITJIDQF NAIL, 06-2304/14/2015 65348-LEZURZQ NAIL, 06-2308/13/2015 80319-RGOYRNN NAIL, 06-2312/10/2015 43260-DUXGQBB NAIL, 06-2311/17/2017 87888-ANJNBGK NAIL, 06-2302/16/2018 92805-TRQCLXX NAIL, 06-2305/18/2018 11180-NMSWTGB NAIL, 06-2309/14/2018 25886-IJGHMHK NAIL, 06-2312/28/2018 08145-HNZLAMA NAIL, 06-2302/23/2021 23908-MJVEGZE NAIL, 06-2306/01/2021 82578-EZTGCKA NAIL, 06-2309/08/2021 98740-NSAKFYT NAIL, 06-2309/02/2013 45083-TFQLDCV NAIL, 06-2308/27/2024 37209-FJVYVRO NAIL, 1-5 01/11/2022 05907-Nimimrca Plate 05/20/2025 63805-Vrwlzyeo Plate 01/11/2022 16252-Vqjgedsq Plate 12/28/2018 01256-Vobnjpnb Plate 04/05/2019 97359-Lwncddqu Plate 05/18/2018 18067-Pbjuwjwd Plate 01/05/2016 47217-Zzsixsvt Plate 12/10/2015 42128-Bvhkxups Plate 09/02/2013 77878-Catfrwzs Plate 11/29/2013 87393-Wecsuprz Plate 07/02/2014 24359-Mhejhaot Plate 02/23/2021 54369-Imemdkfi Plate 08/14/2020 35356-Bvwvvmdo Plate 11/05/2019 94925-Tfhdkkbd Plate 08/27/2024 55106-Vcrcving Plate Each Additional 32758- Debride <25 sq cm 09/08/2021 Next Appt Details Provider Name:Melissa Jaffe Juan R , 11/11/2025 11:00:00 AM, [address] [facility], [place], [address], Insurance Providers Payer Name Payer Address Payer Phone Subscriber Number Group Number Insured Name Patient Relationship to Insured Coverage Start Date Coverage End Date Medicare [employer] [address] [facility] [place] [address] [id number] Naomy Hyman Self - patient is the insured [facility] [address] [place] [address] [id number] Naomy Hyman Self - patient is the insured Medical (General) History Medical History History ICD Code Arthritis back, hip, knee pain high blood pressure osteoporosis thyroid disorder mumps measles chicken pox Surgical History Surgery Date(Month/Year) appendectomy inguinal hernia repair tubal ligation Cataract sx 04/2022
--- OUTSIDE RECORDS SUMMARY | 2025-06-05 11:27 | XMS_ITS | Clinical Summary ---
Author Organization [facility] Address [address] [place] [address] [place] [id number] Phone Care Team Providers Care Technician Automated Equipment Name Role Phone Unavailable Primary Care Provider Unavailabl e Allergies Active Allergy Reactions Criticality Noted Date Comments Adhesive Tape 10/22/2020 Amlodipine 10/22/2020 Bacitracin 10/22/2020 Sulfamethoxazole-Trimethoprim Other (see comments) 10/22/2020 Penicillin G Benzathine Rash Low 10/22/2020 Brompheniramine 10/22/2020 Calcium 10/22/2020 Calcium Carbonate 10/22/2020 Cefaclor 10/22/2020 Chlorpheniramine 10/22/2020 Clindamycin Other (see comments) 10/22/2020 Cplcqyr-Biunotiy-Ymqtkihmb-Hc Other (see comments) 06/01/2021 Propoxyphene 10/22/2020 Dexbrompheniramine 10/22/2020 Chlorpheniramine-Dm Other (see comments) 2020 Diphenhydramine Other (see comments) 10/22/2020 Doxazosin 10/22/2020 Dexbrompheniramine-Pseudoeph Other (see comments) 06/01/2021 Erythromycin 10/22/2020 Gentamicin 10/22/2020 Garlic 10/22/2020 Ginkgo Biloba 10/22/2020 Guaifenesin 10/22/2020 Hydralazine 10/22/2020 Hydrochlorothiazide Other (see comments) 2020 Hydrocortisone 10/22/2020 Latex Other (see comments) 06/01/2021 Meclizine 10/22/2020 Methylsulfonylmethane 10/22/2020 Keguxipxhelswxt-Og-Ohyl Other (see comments) Nebivolol 10/22/2020 Nebivolol Hcl [...] age to complete this topic Insurance Medicare [facility] [place] [id number] Medicare [facility]
== END 2025-06-05 09:44 | disposition home or self-care (01) ==
LOC: HO.MAMMO 09:43
PROVIDERS: PCP Nurse Practitioner Family; Visit Provider Nurse Practitioner Family
DX: M81.0 Age-related osteoporosis without current pathological fracture (principal)
CPT/HCPCS: 77080

== ENCOUNTER → 2025-06-05 10:00 | Outpatient (BNV) | payer MEDICARE, BC, SELFPAY | PROVIDERS: PCP Nurse Practitioner Family; Visit Provider Radiology Diagnostic Radiology | DX: E28.39 Other primary ovarian failure (principal) | CPT/HCPCS: 77080 ==